=== PATIENT | male | born 1960 | race Caucasian/White ===

== ENCOUNTER 2020-04-25 18:16 | Emergency (ER) | payer OTHER ==
[2020-04-25 19:17] LABS: BILIRUBIN,URINE NEGATIVE (NEGATIVE); GLUCOSE, URINE (UA) NEGATIVE (NEGATIVE); KETONES,URINE (UA) NEGATIVE (NEGATIVE); LEUKOCYTE ESTERASE, URINE NEGATIVE (NEGATIVE); NITRITE,URINE NEGATIVE (NEGATIVE); OCCULT BLOOD,URINE MODERATE (NEGATIVE); PH,URINE 5.5 PH (5.0-7.5); PROTEIN,URINE NEGATIVE (NEGATIVE); UROBILINOGEN,URINE 1 (NORMAL) E.U./dL (NORMAL)
[2020-04-25 19:19] LABS: BASOPHILS # (AUTO) 0.1 10^3/uL (0.0-0.1); BASOPHILS % (AUTO) 0.5 %; EOSINOPHILS % (AUTO) 0.3 %; HGB - HEMOGLOBIN 14.2 g/dL (14.0-18.0); LYMPHOCYTES # (AUTO) 1.2 10^3/uL (1.5-3.5); LYMPHOCYTES % (AUTO) 11.8 %; MEAN CORPUSCULAR HEMOGLOBIN 30.1 pg (27.0-31.0); MEAN CORPUSCULAR HGB CONC 33.6 g/dL (32.0-36.0); MEAN CORPUSCULAR VOLUME 89.6 fL (80.0-94.0); MEAN PLATELET VOLUME 10.1 fL (7.4-11.4); MONOCYTES # (AUTO) 0.5 10^3/uL (0.0-1.0); MONOCYTES % (AUTO) 4.5 %; NEUTROPHILS # (AUTO) 8.2 10^3/uL (1.5-6.6); NEUTROPHILS % (AUTO) 82.6 %; PLT - PLATELET COUNT 231 10^3/uL (130-450); RED BLOOD COUNT 4.72 10^6/uL (4.70-6.10); RED CELL DISTRIBUTION WIDTH 14.5 % (12.0-15.0)
[2020-04-25 19:24] LABS: CLARITY,URINE HAZY (CLEAR)
[2020-04-25 19:29] LABS: ALBUMIN 4.6 g/dL (3.2-5.5); ALBUMIN/GLOBULIN RATIO 1.6 (1.0-2.2); BILIRUBIN,TOTAL 0.8 mg/dL (0.2-1.0); CALCIUM 9.2 mg/dL (8.5-10.3); CREATININE 1.1 mg/dL (0.6-1.2); TOTAL PROTEIN 7.4 g/dL (6.7-8.2)
--- NOTE | 2020-04-25 19:30 | ED Physician Documentation ---
PD HPI ABD PAIN - Stated complaint Stated Complaint: ABD PX - Chief complaint Chief Complaint: Abd Pain - History obtained from History obtained from: Patient - History of Present Illness Timing - onset: Today Timing - duration: Days (1) Timing - details: Abrupt onset Pain level max: 9 Pain level now: 5 Quality: Aching, Pain Location: LLQ Radiation: No: Chest, , Lower back, Left flank, Left shoulder, Right flank, Right shoulder, Upper back Improved by: Other (nothing) Worsened by: Other (nothing) Associated symptoms: Nausea, Vomiting, Diarrhea (1x liquid stool). No: Fever, Hematemesis, Constipation, Melena, Hematochezia, Dysuria, Hematuria Similar symptoms before: Has not had sx before Recently seen: Not recently seen - Additional information Additional information: No recent travel. No recent antibiotics. No abdominal surgeries in the past no history of kidney stones. No history of diverticulitis. No fever. Review of Systems Constitutional: denies: Fever, Chills Cardiac: denies: Chest pain / pressure Respiratory: denies: Cough Skin: denies: Rash Musculoskeletal: denies: Neck pain, Back pain Neurologic: denies: Headache PD PAST MEDICAL HISTORY - Past Medical History Past Medical History: No - Past Surgical History Past Surgical History: No - Present Medications Home Medications: Ambulatory Orders Medication Instructions Recorded Confirmed Hydrocodone/Acetaminophen 1 - 2 each PO Q6H PRN #14 tablet 04/25/20 [Hydrocodon-Acetaminophen 5-325] Ibuprofen [Motrin] 800 mg PO Q8H PRN #30 tablet 04/25/20 Ondansetron Odt [Zofran] 4 mg TL Q6H PRN #10 tablet 04/25/20 - Allergies Allergies/Adverse Reactions: Allergies Allergy/AdvReac Type Severity Reaction Status Date / Time No Known Drug Allergies Allergy Verified 04/25/20 18:20 - Social History Does the pt smoke?: No Smoking Status: Never smoker Does the pt drink ETOH?: No Does the pt have substance abuse?: No - Immunizations Immunizations are current?: Yes PD ED PE NORMAL - Vitals Vital signs reviewed: Yes - General General: Alert and oriented X 3, No acute distress - HEENT HEENT: Moist mucous membranes - Neck Neck: Supple, no meningeal sign - Cardiac Cardiac: RRR, Strong equal pulses - Respiratory Respiratory: No respiratory distress, Clear bilaterally - Abdomen Abdomen: Normal bowel sounds, Soft, Non tender, Non distended - Back Back: No CVA TTP, No spinal TTP - Derm Derm: Warm and dry - Extremities Extremities: No edema - Neuro Neuro: Alert and oriented X 3 - Psych Psych: Normal mood, Normal affect Results - Vitals Vitals: Vital Signs - 24 hr 04/25/20 04/25/20 04/25/20 18:21 18:23 20:14 Temperature 36.6 C Heart Rate 86 90 89 Respiratory 16 18 16 Rate Blood Pressure 182/110 H 170/111 H 182/107 H O2 Saturation 97 96 98 04/25/20 20:30 Temperature Heart Rate 85 Respiratory 14 Rate Blood Pressure 173/106 H O2 Saturation 96 Oxygen O2 Source Room air - Labs Labs: Laboratory Tests 04/25/20 04/25/20 04/25/20 19:11 19:11 19:11 WBC 10.0 RBC 4.72 Hgb 14.2 Hct 42.3 MCV 89.6 MCH 30.1 MCHC 33.6 RDW 14.5 Plt Count 231 MPV 10.1 Neut # (Auto) 8.2 H Lymph # (Auto) 1.[address] [place] # (Auto) 0.5 Eos # (Auto) 0.0 Baso # (Auto) 0.1 Absolute Nucleated RBC 0.00 Nucleated RBC % 0.0 Sodium 140 Potassium 3.4 L Chloride 105 Carbon Dioxide 26 Anion Gap 9.0 BUN 14 Creatinine 1.1 Estimated GFR (MDRD) 68 L Glucose 136 H Calcium 9.2 Total Bilirubin 0.8 AST 22 ALT 26 Alkaline Phosphatase 50 Total Protein 7.4 Albumin 4.6 Globulin 2.8 Albumin/Globulin Ratio 1.6 Lipase 30 Urine Color YELLOW Urine Clarity HAZY Urine pH 5.5 Ur Specific [place] 1.015 Urine Protein NEGATIVE Urine Glucose (UA) NEGATIVE Urine Ketones NEGATIVE Urine Occult Blood MODERATE H Urine Nitrite NEGATIVE Urine Bilirubin NEGATIVE Urine Urobilinogen 1 (NORMAL) Ur Leukocyte Esterase NEGATIVE Urine RBC 6-10 H Urine WBC 0-3 Ur Squamous Epith Cells NONE SEEN Urine Bacteria None Seen Ur Microscopic Review INDICATED Urine Culture Comments NOT INDICATED - Rads (name of study) CT abdomen pelvis Radiology: Prelim report reviewed, EMP read contemporaneously PD MEDICAL DECISION MAKING - ED course Complexity details: reviewed results, re-evaluated patient, considered differential, d/w patient ED course: 59-year-old male presents to the emergency department left-sided abdominal pain. Appears to have a 2mm UVJ stone on CT scan. No evidence of pyelonephritis. No significant lab abnormalities. Patient is pain-free. We will have him follow-up with his doctor as needed for further care. Encourage good p.o. hydration. Patient counseled regarding signs and symptoms for which I believe and urgent re-evaluation would be necessary. Patient with good understanding of and agreement to plan and is comfortable going home at this time This document was made in part using voice recognition software. While efforts are made to proofread this document, sound alike and grammatical errors may occur. Departure - Departure Disposition: 01 Home, Self Care Clinical Impression: Ureteral stone Condition: Good Instructions: ED Stone Renal W Colic Follow-Up: Your,doctor as needed [Other] Prescriptions: Hydrocodone/Acetaminophen [Hydrocodon-Acetaminophen 5-325] 1 - 2 each PO Q6H PRN #14 tablet PRN Reason: pain Ibuprofen [Motrin] 800 mg PO Q8H PRN #30 tablet PRN Reason: PAIN &/OR FEVER Ondansetron Odt [Zofran] 4 mg TL Q6H PRN #10 tablet PRN Reason: Nausea / Vomiting Comments: Drink plenty of water. Return if you worsen. You do have a 2 mm kidney stone that should pass. Do not drink alcohol or drive while on narcotic pain medicine. Note that many narcotic pain relievers also contain tylenol/acetaminophen. Please ensure that your total dose of acetaminophen from all sources does not exceed 3 grams (3000mg) per day. You may constipated on this medication, take a stool softener such as "Colace" twice a day while you are on it. Also recommend a dqhd-bjy-swpmygk laxative such as senna or MiraLAX any day that you do not have a bowel movement. If you received narcotic pain medication in the emergency department, do not drive or operate machinery for the next 24 hours.
[2020-04-25] MEDS ORDERED: IOVERSOL 320 100 ML VIAL IVP ONE ×2 (19:32→20:11)
[2020-04-25 19:34] LABS: BACTERIA,URINE None Seen /HPF (None Seen); SQUAMOUS EPITHELIAL CELL,UR NONE SEEN (<= Few)
--- NOTE | 2020-04-25 20:26 | CT Report ---
PROCEDURE: Abdomen/Pelvis W INDICATIONS: LLQ abd pain CONTRAST: IV CONTRAST: Optiray 320 ml: 100 PO CONTRAST: *NO PO CONTRAST TECHNIQUE: After the administration of oral and intravenous contrast, 5 mm thick sections acquired from the diap hragms to the symphysis. 5 mm thick coronal and sagittal reformats were acquired. For radiation dos e reduction, the following was used: automated exposure control, adjustment of mA and/or kV accordin g to patient size. COMPARISON: None. FINDINGS: Image quality: Excellent. ABDOMEN: Lung bases: Basilar dependent atelectasis. Heart size is normal. Small hiatal hernia. Solid organs: There is a 2 mm stone at the left UVJ. There is mild left hydronephrosis and perinephr ic stranding. No other renal stones. Right kidney is normal without stone or hydronephrosis. Hepatic steatosis. Liver and spleen are normal in size and enhancement. Gallbladder is normal Bilia ry system is non dilated. Pancreas enhances normally. No adrenal nodules. Kidneys demonstrate norm al size and enhancement, without hydronephrosis. Peritoneum and bowel: Bowel loops demonstrate normal wall thickness and caliber. No free fluid or a ir. Nodes and vessels: No retroperitoneal or mesenteric adenopathy by size criteria. Aorta and inferior vena cava are normal in size. Moderate atherosclerosis of abdominal aorta. Miscellaneous: No ventral hernias. PELVIS: Genitourinary: Bladder wall thickness is normal. Miscellaneous: No inguinal hernias or adenopathy. Bones: No suspicious bony lesions. No vertebral body compression fractures. IMPRESSION: 1. A 2 mm stone at the left UVJ. Mild left hydronephrosis and perinephric stranding are present. 2. Hepatic steatosis. 2. Small hiatal hernia. Reviewed by: yN Aguilar MD on 04/25/2020 8:25 PM PDT Approved by: Ny Aguilar MD on 04/25/2020 8:25 PM PDT Station ID: [id number]
[2020-04-25] MEDS ORDERED: KETOROLAC 30 MG/ML VIAL IVP STA (20:34)
[2020-04-25 21:00] VITALS: BP 156/103
== END 2020-04-25 21:00 | disposition home or self-care (01) ==
LOC: ED 18:16
DX: N13.2 Hydronephrosis with renal and ureteral calculous obstruction (principal)
CPT/HCPCS: 36415; 74177; 80053; 81001; 83690; 85025; 87086; 96374; 99284; Q9967; 81003

== ENCOUNTER 2020-05-02 05:33 | Inpatient (IN) | payer OTHER ==
[2020-05-02] MEDS ORDERED: HYDROmorphone 1 MG/ML CARPUJECT IVP STA ×5 (05:49→11:08)
[2020-05-02] MEDS ORDERED: ONDANSETRON 4 MG/2 ML VIAL IVP STA (05:49)
[2020-05-02] MEDS ORDERED: KETOROLAC 30 MG/ML VIAL IVP STA (06:19)
[2020-05-02 06:24] LABS: BASOPHILS % (AUTO) 0.3 %; EOSINOPHILS % (AUTO) 0.1 %; HGB - HEMOGLOBIN 16.3 g/dL (14.0-18.0); LYMPHOCYTES % (AUTO) 9.3 %; MEAN CORPUSCULAR HEMOGLOBIN 29.2 pg (27.0-31.0); MEAN CORPUSCULAR VOLUME 88.4 fL (80.0-94.0); MEAN PLATELET VOLUME 12.1 fL (7.4-11.4); MONOCYTES % (AUTO) 6.4 %; NEUTROPHILS % (AUTO) 83.2 %; PLT - PLATELET COUNT 238 10^3/uL (130-450); RED BLOOD COUNT 5.59 10^6/uL (4.70-6.10); RED CELL DISTRIBUTION WIDTH 14.1 % (12.0-15.0); WHITE BLOOD COUNT 21.1 x10^3/uL (4.8-10.8)
[2020-05-02] MEDS ORDERED: MAGNESIUM SULFATE 2 GRAM 2 GM/50 ML BAG IV ONE (06:24)
[2020-05-02] MEDS ORDERED: SODIUM CHLORIDE 0.9% 1,000 ML IV STA ×3 (06:24→08:29)
--- NOTE | 2020-05-02 06:24 | ED Physician Documentation ---
PD HPI ABD PAIN - Stated complaint Stated Complaint: PAIN/VOMITING - Chief complaint Chief Complaint: Abd Pain - History obtained from History obtained from: Patient, Family - History of Present Illness Timing - onset: Enter time (0200), Today Timing - duration: Hours Timing - details: Abrupt onset, Still present Quality: Sharp, Pain Location: RUQ Radiation: Chest, Right shoulder Improved by: Laying still Worsened by: Moving, Breathing, Position, Palpation Associated symptoms: Nausea, Vomiting Similar symptoms before: Has not had sx before Recently seen: Emergency Dept - Additional information Additional information: Previously well 59-year-old male who is had a recent kidney stone in the left s willian is coming to the emergency department this morning with chief complaint of pain in his entire right side pain in his right shoulder pain with breathing and pain in his abdomen.He arrives to the emergency department diaphoretic and in distress with pain.He states his pain was far worse than what he had when he had his kidney stone last week. Review of Systems Constitutional: denies: Fever Eyes: denies: Decreased vision Ears: denies: Ear pain Nose: denies: Rhinorrhea / runny nose, Congestion Throat: denies: Sore throat Cardiac: reports: Chest pain / pressure. denies: Palpitations Respiratory: denies: Dyspnea, Cough GI: reports: Abdominal Pain, Nausea, Vomiting, Constipation : denies: Dysuria, Frequency Skin: denies: Rash Musculoskeletal: reports: Joint pain (right shoulder). denies: Neck pain, Back pain, Extremity pain Neurologic: reports: Numbness (to the arms). denies: Generalized weakness, Focal weakness PD PAST MEDICAL HISTORY - Past Surgical History Past Surgical History: No - Present Medications Home Medications: Ambulatory Orders Medication Instructions Recorded Confirmed Hydrocodone/Acetaminophen 1 - 2 each PO Q6H PRN #14 tablet 04/25/20 [Hydrocodon-Acetaminophen 5-325] Ibuprofen [Motrin] 800 mg PO Q8H PRN #30 tablet 04/25/20 Ondansetron Odt [Zofran] 4 mg TL Q6H PRN #10 tablet 04/25/20 - Allergies Allergies/Adverse Reactions: Allergies Allergy/AdvReac Type Severity Reaction Status Date / Time No Known Drug Allergies Allergy Verified 05/02/20 05:47 - Social History Does the pt smoke?: No Smoking Status: Never smoker Does the pt drink ETOH?: No Does the pt have substance abuse?: No - Immunizations Immunizations are current?: Yes - POLST Patient has POLST: No PD ED PE NORMAL - Vitals Vital signs reviewed: Yes (hypertensive ) - General General: Alert and oriented X 3, Well developed/nourished, Other (59-year-old male hyperventilating and grunting in pain diaphoretic and writhing on the gurney.) - HEENT HEENT: Atraumatic, PERRL, EOMI - Neck Neck: Supple, no meningeal sign - Cardiac Cardiac: RRR, No murmur - Respiratory Respiratory: No respiratory distress, Clear bilaterally, Other (No chest wall tenderness) - Abdomen Abdomen: Soft, Other (The abdomen is obese and there is tenderness specifically to the right upper quadrant with a positive Bradshaw sign. There is epigastric tenderness as well.) - Back Back: No CVA TTP, No spinal TTP - Derm Derm: Normal color, Warm and dry, No rash - Extremities Extremities: No deformity, No edema - Neuro Neuro: Alert and oriented X 3, receiving team member 2-12 intact, No motor deficit, No sensory deficit, Normal speech Eye Opening: Spontaneous Motor: Obeys Commands Verbal: Oriented GCS Score: 15 - Psych Psych: Normal mood, Normal affect Results - Vitals Vitals: Vital Signs - 24 hr 05/02/20 05/02/20 05/02/20 05:35 06:01 06:08 Temperature 36.9 C Heart Rate 83 95 Respiratory 24 24 20 Rate Blood Pressure 132/93 H 122/86 H 110/88 H O2 Saturation 98 96 96 05/02/20 05/02/20 05/02/20 06:36 07:00 07:46 Temperature Heart Rate 64 77 94 Respiratory 18 23 22 Rate Blood Pressure 150/96 H 146/106 H 201/141 H O2 Saturation 98 96 96 05/02/20 05/02/20 05/02/20 08:19 08:20 08:53 Temperature Heart Rate 98 98 Respiratory 19 17 Rate Blood Pressure 164/99 H 158/102 H O2 Saturation 92 86 L 93 05/02/20 05/02/20 05/02/20 09:00 09:30 10:00 Temperature Heart Rate 101 H 100 95 Respiratory 22 18 17 Rate Blood Pressure 150/103 H 162/102 H 144/94 H O2 Saturation 92 93 93 05/02/20 05/02/20 05/02/20 10:30 11:00 11:30 Temperature Heart Rate 107 H 96 100 Respiratory 19 25 H 19 Rate Blood Pressure 147/80 H 154/107 H 160/99 H O2 Saturation 93 92 92 05/02/20 05/02/20 05/02/20 12:00 12:27 12:30 Temperature 36.9 C Heart Rate 104 H 100 110 H Respiratory 18 18 18 Rate Blood Pressure 150/90 H 162/102 H 124/97 H O2 Saturation 94 93 92 05/02/20 05/02/20 05/02/20 12:36 13:08 13:30 Temperature 37.2 C Heart Rate 106 H 110 H Respiratory 20 18 Rate Blood Pressure 136/90 H 124/81 H O2 Saturation 96 92 05/02/20 05/02/20 18:33 18:35 Temperature 36.9 C 37 C Heart Rate 103 H 99 Respiratory 18 18 Rate Blood Pressure 144/96 H 135/82 H O2 Saturation 99 99 Oxygen O2 Source Nasal cannula - EKG (time done) 0612 Rate: Rate (enter#) (64) Rhythm: NSR, LAE Intervals: Prolonged QT Ischemia: Non specific changes (flat T waves lateral mild and I and avL) Other comments: Other comments (RSR' in V1 consistent with RVH) Compare to prior EKG: Old EKG unavailable Computer interpretation: Agree with computer - Labs Labs: Laboratory Tests 05/02/20 05/02/20 05/02/20 05:45 05:45 10:47 WBC 21.1 H RBC 5.59 Hgb 16.3 Hct 49.4 MCV 88.4 MCH 29.2 MCHC 33.0 RDW 14.1 Plt Count 238 MPV 12.1 H Neut # (Auto) Not Reportable Lymph # (Auto) Not Reportable [place] # (Auto) Not Reportable Eos # (Auto) Not Reportable Baso # (Auto) Not Reportable Absolute Nucleated RBC Not Reportable Total Counted 100 Band Neuts % (Manual) 0 Abnorm Lymph % (Manual) 0 Nucleated RBC % Not Reportable Neutrophils # (Manual) 17.3 H Lymphocytes # (Manual) 2.3 Monocytes # (Manual) 1.5 H Eosinophils # (Manual) 0.0 Basophils # (Manual) 0.0 Differential Comment MANUAL DIFFERENTIAL WBC Morphology NORMAL APPEARANCE Platelet Estimate NORMAL (130-450,000) Platelet Morphology NORMAL APPEARANCE RBC Morph Micro Appear NORMAL APPEARANCE Sodium 140 Potassium 2.9 L Chloride 94 L Carbon Dioxide 30 Anion Gap 16.0 H BUN 18 Creatinine 1.8 H Estimated GFR (MDRD) 39 L Glucose 236 H Calcium 10.6 H Total Bilirubin 0.9 AST 22 ALT 23 Alkaline Phosphatase 55 Total Protein 8.8 H Albumin 4.8 Globulin 4.0 Albumin/Globulin Ratio 1.2 Lipase 27 Urine Color DARK YELLOW Urine Clarity CLEAR Urine pH 5.5 Ur Specific [place] 1.015 Urine Protein 100 H Urine Glucose (UA) NEGATIVE Urine Ketones NEGATIVE Urine Occult Blood MODERATE H Urine Nitrite NEGATIVE Urine Bilirubin NEGATIVE Urine Urobilinogen 1 (NORMAL) Ur Leukocyte Esterase NEGATIVE Urine RBC 0-5 Urine WBC 0-3 Ur Squamous Epith Cells MOD Squamous H Urine Crystals 3-5 Calcium Oxalate Urine Bacteria Many H Urine Casts 6-10 Granular Casts Ur Microscopic Review INDICATED Urine Culture Comments NOT INDICATED - Rads (name of study) chest Radiology: Prelim report reviewed (Impression: Streaky left medial lung base opacity. This could be partial atelectasis or early consolidation.), EMP read indepedently, See rad report Procedures - Bedside sono Bedside sono by EMP: With use of bedside ultrasound the right kidney is imaged there is no evidence of hydronephrosis and the kidney is sonographically nontender. The right upper quadrant is imaged with the ultrasound I am not able to image the gallbladder there is excessive gas in the throughout the exam the area is sonographically tender. PD MEDICAL DECISION MAKING - ED course Complexity details: reviewed old records, reviewed results, re-evaluated patient, considered differential, d/w patient ED course: 59-year-old male presents to the emergency department with severe right upper quadrant abdominal pain pain in his right shoulder diaphoresis nausea vomiting and numbness to his hands. He is hyperventilating when he arrives to the emergency department. He is in distress and he is administered Dilaudid and Zofran with only mild improvement in his pain. His pain behavior is much improved. He is administered Toradol. I was unable to image the gallbladder secondary to gas. By history the gallbladder would be the most likely culprit for entire right-sided pain including pain in the shoulder. I have reviewed the patient's CT scan from his prior visit and I did not see anything in the scan to indicate an impending abdominal catastrophe. He does not have abdominal aortic aneurysm. I asked the scrub technician to look at the gallbladder and she was unable to visualize the gallbladder except in one angle and this looked contracted. Not likely the source of the patient's pain. The pain is severe the WBC is markedly elevated and I am concerned about perforation or other catastrophe. At shift change a CT is ordered the case is reviewed with Dr. Arzate and care of the patient is turned over to Dr. Arzate. In addition his QTc was prolonged and he was administered IV magnesium. He is administered IV potassium as well. Departure - Departure Disposition: [facility] DC/Xfer Clinical Impression: Acute upper abdominal pain, Perforated duodenal ulcer, Pneumoperitoneum Condition: Stable Discharge Date/Time: 05/02/20 13:40
[2020-05-02 06:29] LABS: ABNORMAL LYMPHS % (MANUAL) 0 %; BAND NEUTROPHILS % (MANUAL) 0 %
[2020-05-02 06:36] LABS: ALBUMIN 4.8 g/dL (3.2-5.5); ALBUMIN/GLOBULIN RATIO 1.2 (1.0-2.2); BILIRUBIN,TOTAL 0.9 mg/dL (0.2-1.0); CALCIUM 10.6 mg/dL (8.5-10.3); CREATININE 1.8 mg/dL (0.6-1.2); TOTAL PROTEIN 8.8 g/dL (6.7-8.2)
[2020-05-02 06:58] LABS: DIFFERENTIAL COMMENT MANUAL DIFFERENTIAL; LYMPHOCYTES # (MANUAL) 2.3 10^3/uL (1.5-3.5); LYMPHOCYTES % (MANUAL) 11 %; MONOCYTES # (MANUAL) 1.5 10^3/uL (0.0-1.0); PLATELET ESTIMATE, MANUAL NORMAL (130-450,000) (NORMAL); PLATELET MORPHOLOGY NORMAL APPEARANCE (NORMAL); RBC MORPHOLOGY (MULTIPLE) NORMAL APPEARANCE (NORMAL)
[2020-05-02] MEDS ORDERED: IOVERSOL 320 100 ML VIAL IVP ONE ×2 (07:45→09:28)
[2020-05-02] MEDS: POTASSIUM CHLOR 10 MEQ/100 ML 10 MEQ/100 ML BAG IV SCH ×3 (08:19→12:51)
[2020-05-02] MEDS ORDERED: POTASSIUM CHLOR 10 MEQ/100 ML 10 MEQ/100 ML BAG IV ONE (08:29)
[2020-05-02] MEDS ORDERED: AMPICILLIN/SULBACTAM 3 GM in SODIUM CHLORIDE 0.9% MINIBAG 100 ML IV STA (08:29)
[2020-05-02] MEDS ORDERED: FAMOTIDINE 20 MG/2 ML SYRINGE IVP STA (08:29)
--- NOTE | 2020-05-02 08:29 | Ultrasound Report ---
PROCEDURE: Abdomen Limited INDICATIONS: RUQ pain TECHNIQUE: Real-time focused scanning was performed of the abdomen, with image documentation. COMPARISON: Correlation is made with the subsequently performed CT examination as well as the chest radiograph performed on 05/02/2020. Correlation is made with abdomen and pelvis CT 04/25/2020. FINDINGS: The liver demonstrates normal size. The liver demonstrates increased echogenicity, which l imits ultrasound sensitivity for detection of masses. Mild ascites is seen adjacent to the liver. Evaluation of the gallbladder is limited, and it is poorly seen. The gallbladder is contracted and de monstrates an irregular wall. The wall measures 6 mm in thickness. No specific pericholecystic fluid is seen. Sonographic Bradshaw sign is negative. The common bile duct is not seen. The common hepatic duct is nondilated at 3 mm. The pancreas is not seen, secondary to overlying bowel gas. The right kidney is unremarkable. Overall scan quality is limited secondary to the patient's inability to cooperate with examination an d moved into standard positioning. The study is further limited by bowel gas and body habitus. IMPRESSION: Limited study demonstrating a contracted gallbladder with irregular, thickened wall. No additional sp ecific signs of cholecystitis are seen. Mild ascites. Increased liver echogenicity is seen. This is nonspecific, yet it is most commonly attributed to fatt y infiltration. Note: Concordant biliary findings given by the inspector canvas products upon the completion of the examination to Dr. Shay at 7:20 AM on 05/02/2020. Reviewed by: Matthew Torrez MD on 05/02/2020 7:28 AM [facility] Approved by: Matthew Torrez MD on 05/02/2020 7:28 AM [facility] Station ID: [id number]
--- NOTE | 2020-05-02 08:35 | CT Report ---
PROCEDURE: Abdomen/Pelvis W INDICATIONS: Right sided abdominal pain severe. CONTRAST: IV CONTRAST: Optiray 320 ml: 100 PO CONTRAST: *NO PO CONTRAST TECHNIQUE: After the administration of oral and intravenous contrast, 5 mm thick sections acquired from the diap hragms to the symphysis. 5 mm thick coronal and sagittal reformats were acquired. For radiation dos e reduction, the following was used: automated exposure control, adjustment of mA and/or kV accordin g to patient size. COMPARISON: Correlation is made with abdominal ultrasound and chest 05/02/2020. Comparison is made to prior head and pelvis CT 04/25/2020. FINDINGS: Image quality: Excellent. ABDOMEN: Lung bases: There is mild dependent atelectasis. A small hiatal hernia is incidentally noted. Heart s ize is normal. Solid organs: Liver and spleen are normal in size and enhancement. Mild fatty liver infiltration is seen. Gallbladder is contracted at the time of this study. Biliary system is non dilated. Pancreas enhances normally. No adrenal nodules. Kidneys demonstrate normal size and enhancement, without hyd ronephrosis. Peritoneum and bowel: The duodenum appears thickened, irregular, and hyperenhancing. There is free a ir seen adjacent to the duodenum, as on series 3 image 32. Moderate free air is seen elsewhere, prima rily involving the upper abdomen. There is moderate ascites seen adjacent to the liver as well as lay ering dependently within the pelvis. Generalized moderate thickening is seen of the small bowel. No dilated loops of bowel are seen. No lo culated abscess is seen. Nodes and vessels: No retroperitoneal or mesenteric adenopathy by size criteria. Aorta and inferior vena cava are normal in size. Atherosclerotic calcification is seen. Miscellaneous: No ventral hernias. PELVIS: Genitourinary: Bladder wall thickness is normal. Miscellaneous: No inguinal hernias or adenopathy. Bones: No suspicious bony lesions. No vertebral body compression fractures. Mild levoconvex scolio tic curvature is seen. Focal L5-S1 degenerative change is seen. Milder degenerative changes are seen elsewhere. IMPRESSION: Free air is seen. These source of the free air is attributed to a perforated duodenal ul cer. Surgical consultation is recommended. Moderate ascites is also seen. No loculated abscess. The previously seen left ureteral stone has resolved. Incidental note is made of: Small hiatal hernia Mild fatty liver infiltration Levoconvex scoliotic curvature Focal L5-S1 degenerative change Note: Case discussed by telephone with Dr. Shay at 7:27 AM [place] time on 05/02/2020. Reviewed by: Matthew Torrez MD on 05/02/2020 7:33 AM [facility] Approved by: Matthew Torrez MD on 05/02/2020 7:33 AM [facility] Station ID: [id number]
--- NOTE | 2020-05-02 08:36 | ED Physician Documentation ---
ED Addendum - Addendum Addendum: 05/02/20 08:[address] Shay at change of shift. The patient was feeling more comfortable though still had some upper abdominal pain. Main complaint was right shoulder pain. He was just back from CT scan. His CT scan is significantly positive for large amount of free air and some free fluid. There is inflammation around the duodenum so likely a perforated duodenal ulcer. This would fit his scenario of some upper abdominal pain starting 2 days ago worse with eating and associated with nausea. He started with a current bloating abdominal pain and vomiting last evening. Contact was made with Dr. Snow who is on for surgery who will come evaluate the patient presumably for surgical repair. The patient was informed. He has been n.p.o. while here and is continued that way. We will start some antibiotics as well as famotidine and continue potassium replacement. Disposition the patient will be admitted for more definitive care Diagnoses acute upper abdominal pain 2. Acute perforated duodenal ulcer 3. Recent kidney stone
--- NOTE | 2020-05-02 08:37 | XRAY Report ---
PROCEDURE: Chest 1 View X-Ray INDICATIONS: chest pain TECHNIQUE: One view of the chest was acquired. COMPARISON: Correlation is made with CT examinations 05/02/2020 and 04/25/2020. FINDINGS: Surgical changes and devices: Right shoulder postoperative change is seen. Lungs and pleura: An incomplete inspiratory result is noted, with low lung volumes and crowding of the vascular markings. No focal infiltrates are seen. No large pneumothorax or large pleural effusion can be seen. Mediastinum: Mediastinal contours appear normal. Heart size is normal. Bones and chest wall: No suspicious bony lesions. Overlying soft tissues appear unremarkable. IMPRESSION: Limited portable chest examination, without an acute abnormality identified. Reviewed by: Matthew Torrez MD on 05/02/2020 7:36 AM [facility] Approved by: Matthew Torrez MD on 05/02/2020 7:36 AM [facility] Station ID: [id number]
--- NOTE | 2020-05-02 10:04 | SURGERY HX AND PHYSICAL(T) ---
Surgical History & Physical - Chief Complaint/HPI Chief Complaint: Pneumoperitoneum and abdominal pain History of Present Illness: 59-year-old male with no significant past medical history or surgical history who presents with a several day history of abdominal pain. Associated nausea and vomiting. Has been seen recently and started on nonsteroidal analgesia. Denies any change in bowel movements. No bright red blood per rectum. No hematemesis however violent heaving. Patient presented to ER for evaluation it was noted for pneumoperitoneum on CT scan with concerns for perforated pyloric ulcer. General surgery consultation obtained. - PMH/PSH/Social Hx Does the pt have a hx of MRSA?: No Neurological History: None Eyes, Ears, Nose, Throat: None Cardiovascular: None Respiratory: None Skin: None Endocrine/Autoimmune: None Gastrointestinal: None Urinary: None Musculoskeletal: None Blood Disorders: None Psychiatric: None Smoking Status: Never smoker Does the pt drink ETOH?: No Does the pt have substance abuse?: No - Family Hx Family Hx: Other (Denies family history of colorectal cancer, inflammatory bowel disease, Crohn's disease, ulcerative colitis. No family history of heart attack stroke.) - Home Meds and Allergies Allergies/Adverse Reactions: Allergies Allergy/AdvReac Type Severity Reaction Status Date / Time No Known Drug Allergies Allergy Verified 05/02/20 05:47 - Review of Systems Constitutional: Fatigue, Weakness Gastrointestinal: Nausea, Vomiting, Abdominal pain, Constipation Neurological: No: Dizziness, Headache - Vital Signs Heart Rate: 100 Blood Pressure: 162/102 Temperature: 36.9 C Respiratory Rate: 18 O2 Saturation: 93 Weight (kg): 117.934 kg Height: 1.8 m - Physical Exam General Appearance: positive: Mild distress Eyes Bilatera: positive: Normal inspection, PERRL, EOMI ENT: positive: ENT inspection nml Neck: positive: Nml inspection Respiratory: positive: Chest non-tender, No respiratory distress Cardiovascular: positive: Regular rate & rhythm Abdomen: positive: Tenderness, Guarding, Rebound, Other (Abdomen distended, with associated rebound and guarding, consistent with peritonitis from perforated viscus.) Rectal: positive: Other (Deferred) Back: positive: Nml inspection Extremities: positive: Non-tender, Full ROM Neurologic/Psychiatric: positive: Oriented x3, CN's nml (2-12) - Patient Review Patient Review: Problems were reviewed with the patient during this visit. Medications were reviewed with the patient during this visit. Allergies were reviewed this patient during this visit. Pertinent Tests Reviewed: All pertitent test for this patient were reviewed. - Assessment & Plan Assessment and Plan: 59-year-old male presenting with acute perforated viscus without comorbid states other than obesity. Leukocytosis, CT consistent with pneumoperitoneum and likely perforated pyloric ulcer. Plan going forward is as follows: 1. Bowel rest, IV fluid resuscitation, IV antibiotics. 2. Preoperative chest x-ray, preoperative EKG, labs evaluated. 3. Planned exploratory laparotomy, repair of viscus, likely gastrostomy with jejunal extension, other indicated procedures. Patient counseled of the risk associated with operative intervention including but not limited to conversion to open procedure, injury to local structures, and anesthesia risks of heart attack, stroke, . 4. Postoperative care under observation status with continued IV antibiotics. 5. Drain placement as well. 6. Operative risks - patient was advised of risks as a relates to colectomy including but not limited to, anastomotic leak, injury to local structures including the ureter and nerves, potential for proximal diversion including loop ileostomy, possible conversion to open intervention, need for additional surgeries, as well as the development of postoperative surgical site hernias and infection. Moreover, there were the anesthesia and operative risks of heart attack, stroke, . These conversations also included discussion of possible sexual dysfunction as it relates to retrograde ejaculation amongst others in the setting of anterior resection. We discussed these at length with both the patient and spouse over multiple days. 7. PPI gtt/carafate/biopsies.
--- NOTE | 2020-05-02 10:14 | ANESTHESIA ---
Pre-Anesthesia VS, & Labs - Diagnosis perforATED bowel - Procedure laparoscopy/laparotomy peroforated bowel repair Vital Signs: Temp Pulse Resp BP Pulse Ox 36.9 C 100 18 162/102 H 93 05/02/20 10:04 05/02/20 10:04 05/02/20 10:04 05/02/20 10:04 05/02/20 10:04 Height 5 ft 11 in Weight (kg) 117.934 kg Body Mass Index 36.2 - NPO >8 hours - Lab Results Current Lab Results: Laboratory Tests 05/02/20 05:45: Sodium 140, Potassium 2.9 L, Chloride 94 L, Carbon Dioxide 30, Anion Gap 16.0 H, BUN 18, Creatinine 1.8 H, Estimated GFR (MDRD) 39 L, Glucose 236 H, Calcium 10.6 H, Total Bilirubin 0.9, AST 22, ALT 23, Alkaline Phosphatase 55, Total Protein 8.8 H, Albumin 4.8, Globulin 4.0, Albumin/Globulin Ratio 1.2, Lipase 27 05/02/20 05:45: WBC 21.1 H, RBC 5.59, Hgb 16.3, Hct 49.4, MCV 88.4, MCH 29.2, MCHC 33.0, RDW 14.1, Plt Count 238, MPV 12.1 H, Neut # (Auto) Not Reportable, Lymph # (Auto) Not Reportable, [place] # (Auto) Not Reportable, Eos # (Auto) Not Reportable, Baso # (Auto) Not Reportable, Absolute Nucleated RBC Not Reportable, Total Counted 100, Band Neuts % (Manual) 0, Abnorm Lymph % (Manual) 0, Nucleated RBC % Not Reportable, Neutrophils # (Manual) 17.3 H, Lymphocytes # (Manual) 2.3, Monocytes # (Manual) 1.5 H, Eosinophils # (Manual) 0.0, Basophils # (Manual) 0.0, Differential Comment MANUAL DIFFERENTIAL, WBC Morphology NORMAL APPEARANCE, Platelet Estimate NORMAL (130-450,000), Platelet Morphology NORMAL APPEARANCE, RBC Morph Micro Appear NORMAL APPEARANCE Fish Bones: 05/02/20 05:45 05/02/20 05:45 Home Medications and Allergies Active Medications Potassium Chloride (Potassium Chloride) 10 meq in 100 mls @ 100 mls/hr IV Q1H JOSE C Last Infusion: 07/18/20 09:19 Dose: Infused Documented by: Sodium Chloride (Normal Saline 0.9%) 1,000 mls @ 500 mls/hr IV .Q2H STA Stop: 05/02/20 10:28 Last Admin: 05/02/20 08:54 Dose: 500 mls/hr Documented by: Allergies/Adverse Reactions: Allergies Allergy/AdvReac Type Severity Reaction Status Date / Time No Known Drug Allergies Allergy Verified 05/02/20 05:47 Anes History & Medical History - Anesthetic History Anesthesia Complications: reports: No previous complications Family history of Anesthesia Complications: Denies Family history of Malignant Hyperthermia: Denies - Medical History Cardiovascular: reports: Hypertension Pulmonary: reports: None, Other (quit 12 years ago) Gastrointestinal: reports: GERD Urinary: reports: None Neuro: reports: None Musculoskeletal: reports: None Endocrine/Autoimmune: reports: None Blood Disorders: reports: None Skin: reports: None Smoking Status: Former smoker Psychosocial: reports: No issues indicated - Surgical History Orthopedic: Rotator cuff repair (right side 15 years ago) Exam General: Alert, Oriented x3, Cooperative, No acute distress Dental: Poor dentition, Other (missing teeth) Mouth Openin Fingerbreadth Neck Mobility: Normal Mallampati classification: II Thyromental Distance: 4-6 cm Respiratory: Lungs clear, Normal breath sounds, No respiratory distress, No accessory muscle use Cardiovascular: Regular rate, Normal S1, Normal S2, No murmurs Abdomen: Normal bowel sounds, Soft, No tenderness, No hepatospenomegaly, No masses Extremities: No clubbing, No cyanosis, No edema, Normal pulses, No tenderne ss/swelling Neurological: Normal gait, Normal speech, Strength at 5/5 X4 ext, Normal tone, Sensation intact, Cranial nerves 3-12 NL, Reflexes 2+ Mental/Cognitive Status: Alert/Oriented X3, Normal for patient Cognitive Status: Within normal limits Plan Anesthesia Type: General, Transverse Abdominis Plane (TAP) Block Regional Block: Per Surgeon's request for Post Op pain control Consent for Procedure(s) Verified and Reviewed: Yes Code Status: Attempt Resuscitation ASA classification: 3-Severe systemic disease Is this case an emergency?: No
[2020-05-02 11:08] LABS: BILIRUBIN,URINE NEGATIVE (NEGATIVE); GLUCOSE, URINE (UA) NEGATIVE (NEGATIVE); KETONES,URINE (UA) NEGATIVE (NEGATIVE); LEUKOCYTE ESTERASE, URINE NEGATIVE (NEGATIVE); NITRITE,URINE NEGATIVE (NEGATIVE); OCCULT BLOOD,URINE MODERATE (NEGATIVE); PH,URINE 5.5 PH (5.0-7.5); PROTEIN,URINE 100 mg/dL (NEGATIVE); UROBILINOGEN,URINE 1 (NORMAL) E.U./dL (NORMAL)
[2020-05-02 11:11] LABS: CLARITY,URINE CLEAR (CLEAR)
[2020-05-02 11:24] LABS: BACTERIA,URINE Many /HPF (None Seen); CRYSTALS,URINE 3-5 Calcium Oxalate /LPF; RBC,URINE 0-5 /HPF (0-5); SQUAMOUS EPITHELIAL CELL,UR MOD Squamous (<= Few)
[2020-05-02] MEDS ORDERED: ROPIVACAINE 0.5% PF 20 ML AMPULE ONE (12:41)
[2020-05-02] MEDS ORDERED: LACTATED RINGERS 1,000 ML IV STA (12:42)
[2020-05-02] MEDS ORDERED: LIDOCAINE 1%-EPI 1:100000 20 ML MDV ONE (13:15)
[2020-05-02] MEDS ORDERED: BUPIVACAINE 0.5% PF 30 ML VIAL ONE (13:16)
[2020-05-02] MEDS ORDERED: DEXAMETHASONE 4 MG/ML VIAL IVP ONE (13:45)
[2020-05-02] MEDS ORDERED: ONDANSETRON 4 MG/2 ML VIAL IVP ONE (13:45)
[2020-05-02] MEDS ORDERED: SUCCINYLCHOLINE 200 MG/10 ML VIAL IVP ONE (13:45)
[2020-05-02] MEDS ORDERED: ACETAMINOPHEN 1,000 MG/100 ML 100 ML IV ONE (13:45)
[2020-05-02] MEDS ORDERED: GLYCOPYRROLATE 1 MG/5 ML VIAL IVP ONE (13:45)
[2020-05-02] MEDS ORDERED: fentaNYL 100 MCG/2 ML VIAL IVP ONE (13:45)
[2020-05-02] MEDS ORDERED: PHENYLEPHRINE 10 MG/ML VIAL IV ONE (13:45)
[2020-05-02] MEDS ORDERED: PROPOFOL 200 MG/20 ML VIAL IVP ONE (13:45)
[2020-05-02] MEDS ORDERED: ROCURONIUM 50 MG/5 ML VIAL IVP ONE (13:45)
[2020-05-02] MEDS ORDERED: PIPERACILLIN/TAZOBACTAM 3.375 GM in SODIUM CHLORIDE 0.9% MINIBAG 100 ML IV ONE (15:00)
[2020-05-02] MEDS ORDERED: FLUCONAZOLE 200 MG/100 ML 100 ML IV ONE (15:00)
[2020-05-02] MEDS ORDERED: SUGAMMADEX 500 MG/5 ML VIAL IVP ONE (16:57)
--- NOTE | 2020-05-02 17:45 | XRAY Report ---
PROCEDURE: Abdomen 1 View X-Ray INDICATIONS: EMERGENT CASE R/O RETAINED FOREIGN BODY TECHNIQUE: 1 view of the abdomen were acquired. COMPARISON: Correlation is made with abdomen pelvis CT 05/02/2020 and chest radiograph 05/02/2020. FINDINGS: Surgical changes and devices: There is a weighted feeding tube seen, with the tip coiled overlying th e stomach, with the tip overlying the fundus of the stomach. This tube is incompletely seen. Two right-sided peritoneal drains are seen, one superiorly and one inferiorly. Bowel: No dilated loops of bowel are seen. Soft tissues: No masses; visualized solid organ contours appear normal in size. No suspicious abdom inal calcifications. Bones: No suspicious bony abnormalities. Age-appropriate degenerative changes are seen. IMPRESSION: The tip of the weighted feeding tube is seen coiled overlying the fundus of the stomach. Please consider advancement, as clinically appropriate. Two right-sided peritoneal surgical drains are seen. To the limits of this study, no radiopaque retained foreign bodies are seen. Reviewed by: Matthew Torrez MD on 05/02/2020 4:44 PM B[facility] Approved by: Matthew Torrez MD on 05/02/2020 4:44 PM BULMAR[facility] Station ID: [id number]
[2020-05-02] MEDS ORDERED: LACTATED RINGERS 1,000 ML IV ONE (18:33)
[2020-05-02] MEDS ORDERED: IPRATROPIUM 0.2 MG/ML NEB INH PRN (18:36)
[2020-05-02] MEDS ORDERED: ALBUTEROL NEB 2.5 MG/3 ML INH PRN (18:36)
--- NOTE | 2020-05-02 18:36 | OPERATIVE REPORT ---
Operative Report - General Admit Date: 05/02/20 Planned Procedure: 1. Exploratory laparotomy 2. Abdominal washout, extensive 3. Repair of perforated viscous 4. Other indicated procedures Pre-Op Diagnosis: Sepsis, Septic Shock, Peritonitis, Pneumoperitoneum Procedure Performed: 1. Exploratory laparotomy 2. Abdominal washout, extensive 3. Repair of pyloric ulcer 4. Ulcer biopsy, open 5. Heineke-Mikulicz pyloroplasty 6. Gastrostomy with jejunostomy extension, open 7. Open umbilical hernia repair 8. Wound VAC placement 9. Wide drainaged 10. Lysis of adhesions Post Op Diagnosis: Same, Perforated pyloric ulcer, Purulent/Bilious Peritonitis - Procedure Note Primary Surgeon: Gwendolyn Secondary Surgeon: Mildred Anesthesia Provider: Anesthesia Technique: General ET tube, Regional block Pathology: 1. Gastric biopsy 2. Umbilical hernia sac Estimated Blood Loss (mL): 150 Drain/Tube Type: Omari drain, Other (Drain Type: Omari #1 Epigastrium (exit RUQ); Omari #2 Pelvis (exit RLQ) Drain Additional: Gastrostomy with Feeding Jejunostomy in the side port) Indications: Omari Drain Findings: Patient with purulent and bilious peritonitis. Noted for pre-pyloric ulcer for which Heineke-Mikulicz's pyloroplasty was performed including layered repair with Vicryl primary interrupteds and silk Lembert's. Please note gastropexy and gastrostomy was performed. Extensive washout. Drain #1 placed exiting the right upper quadrant at the pylorus. Drain #2 placed exiting the right lower quadrant within the pelvis. Patient was unable to be passed for nasogastric tube and should remain strict n.p.o. Complications: None
[2020-05-02] MEDS ORDERED: ONDANSETRON 4 MG/2 ML VIAL IVP PRN (18:45)
--- NOTE | 2020-05-02 18:50 | PROCEDURE REPORT ---
Hospitalist Procedure Note - Procedure Note Procedure Note: Intraop TL 7 malawian CVL placed per surgeons request. Patient being operated on for perforated viscus. Requiring vasopresors intraoperatively. CVL placed after the completion of surgery and before extubation. All sterile precautions observed. US used. Right IJ insertion under US guidance. Catheter secured with sutures and tegaderm dressing on top. No ectopy noticed on the quality assurance monitor chassis. Pt tolerated the procedure well.
--- NOTE | 2020-05-02 18:58 | POST OP PROGRESS NOTE ---
Subjective - General Procedure Date: 05/02/20 Post Op Days: 0 Procedure Performed: Ex Lap, Pyloroplasty, Drain X2, Gastrostomy, Feeding Jejunostomy, Wound Vac - Review of Systems Drain Type: Omari #1 Epigastrium (exit RUQ); Omari #2 Pelvis (exit RLQ) Drain Output Description: Gastrostomy with Feeding Jejunostomy in the side port Surgery Impression Plan - FEN FEN: GI/nutrition: 1. STRICT NPO, gastrostomy tube to gravity, trickle feeds to the jejunostomy extension. 2. PPI/Protonix drip; avoid NSAIDs. 3. Plan TPN for prolonged NPO. 4. Bowel regimen to jejunostomy tube...all meds through feeding jejunostomy extension. 5. Daily electrolytes and continue with nurse replacements per protocol. 6. Defer po intake until definitive evaluation by upper GI study with follow through. - ID ID: Purulent and Bilious Peritonitis: 1. Broad Spectrum Coverage to include Vancomycin, Zosyn and anti-fungal coverage with Diflucan. 2. Daily CBC. Continue drains. 3. Leave skin and subcutaneous tissue open in the setting of contamination. Wound Vac change in three days. 4. Septic shock with aggressive resuscitation and pressers as necessary. - Problem List (1) Acute upper abdominal pain Impression/Plan: S/P following procedure: 1. Exploratory Laparotomy 2. Extensive abdominal washout of purulent and bilious peritonitis 3. Repair of perforate pyloric ulcer 4. Heineke-Mikulicz pyloroplasty 5. Wide local drainage 6. Gastrostomy tube placement with feeding jejunostomy extension 7. Wound Vac placement Right radial arterial line placed by anesthesia IJ TLC placement by anesthesia as well (2) Perforated duodenal ulcer Impression/Plan: S/P above listed procedures, continue protonix gtt as well. Await pathology. Avoid NSAIDs.
[2020-05-02] MEDS ORDERED: PIPERACILLIN/TAZOBACTAM 3.375 GM in SODIUM CHLORIDE 0.9% MINIBAG 100 ML IV SCH (19:00)
[2020-05-02] MEDS ORDERED: ACETAMINOPHEN 1,000 MG/100 ML 100 ML IV SCH (19:00)
[2020-05-02] MEDS ORDERED: D5NS W/20 MEQ KCL 1,000 ML IV SCH (19:00)
[2020-05-02] MEDS ORDERED: HYDROmorphone 0.5 MG/0.5 ML SYRINGE ONE (19:15)
--- NOTE | 2020-05-02 19:28 | CONSULTATION NOTE ---
Referring Provider Name of Referring Provider:: Dr. Omar Snow Consult Date: 05/02/20 Chief Complaint - Chief Complaint Chief Complaint: Abdominal pain History of Present Illness - Admitted From Admitted From:: Home - History Obtained From Records Reviewed: Yes History obtained from: Patient, General Surgery, EMR - History of Present Illness HPI Comment/Other: This is a pleasant 59-year-old male with no significant past medical history who presents today complaining of worsening abdominal pain over the past few days which became quite severe at 2 AM this morning. He states his last meal was Monday evening when he had some pizza. He states since then he has had poor appetite with vague abdominal pain. He reports going to sleep last night feeling relatively okay but then he woke up at 2 AM with severe abdominal pain. He had associated nausea and vomiting that was nonbloody. He states he does take occasional NSAIDs for chronic back pain. He reports no fevers, chills. He denies any chest pain, dyspnea. Reports no recent sick contacts. He denies any alcohol use. In the emergency department, he was found to have pneumoperitoneum on CT with concerns for perforated duoedenal ulcer. General surgery was consulted he went to the OR for an expiratory laparotomy. He was found to have a perforated duodenal ulcer. 2 HOMA drains were placed as well as a gastrostomy tube with a feeding jejunostomy. He was transferred to intensive care unit postoperatively and medicine was consulted for medical management. The patient reports that his pain is currently well controlled. He still has some vague abdominal pain but this has improved since last night. He reports no chest pain, dyspnea. He denies any current fevers, chills, weakness, dizziness, lightheadedness. He feels pretty well overall considering the circumstances. He is currently not passing gas. He reports last bowel movement was over 24 hours ago. History - Past Medical History Cardiovascular: reports: None Respiratory: reports: None Neuro: reports: None Endocrine/Autoimmune: reports: None GI: reports: None : reports: None HEENT: reports: None Psych: reports: None Musculoskeletal: reports: None Derm: reports: None MRSA Hx?: No - Past Surgical History Ortho: reports: Rotator cuff repair (right side 15 years ago) - Family & Social History Family History Comment/Other: He reports both of his parents had myocardial infarction's. He reports no other family history to his knowledge. Living arrangement: At home Living Situation: With spouse/s.o. Social History Notes: He lives at home with his . He has been living here at [place] for the past 12 years. He works as a construction superintendent. He did smoke a pack a day quit 12 years ago. He does not drink any alcohol. - POLST Patient has POLST: No Meds/Allgy - Home Medications Home Medications: Ambulatory Orders Medication Instructions Recorded Confirmed Hydrocodone/Acetaminophen 1 - 2 each PO Q6H PRN #14 tablet 04/25/20 [Hydrocodon-Acetaminophen 5-325] Ibuprofen [Motrin] 800 mg PO Q8H PRN #30 tablet 04/25/20 Ondansetron Odt [Zofran] 4 mg TL Q6H PRN #10 tablet 04/25/20 - Allergies Allergies/Adverse Reactions: Allergies Allergy/AdvReac Type Severity Reaction Status Date / Time No Known Drug Allergies Allergy Verified 05/02/20 05:47 Review of Systems - Constitutional Constitutional: reports: Poor appetite. denies: Fatigue, Malaise, Weakness - Ears, Nose & Throat Ears, Nose & Throat: denies: Nasal discharge, Nasal congestion, Postnasal drainage, Sore throat - Cardiovascular Cariovascular: denies: Chest pain, Edema, Lightheadedness, Exertional dyspnea, Decr. exercise tolerance - Respiratory Respiratory: denies: Cough, SOB at rest, SOB with exertion - Gastrointestinal Gastrointestinal: reports: Abdominal pain, Nausea, Vomiting. denies: Const ipation - Genitourinary Genitourinary: denies: Dysuria, Frequency, Urgency - Musculoskeletal Musculoskeletal: denies: Muscle pain, Muscle aches - Integumentary Integumentary: denies: Rash - Neurological Neurological: denies: General weakness, Focal weakness, Dizziness, Numbness - Hematologic/Lymphatic Hematologic/Lymphatic: denies: Bleeding tendencies - All Other Systems All Other Systems: reports: Reviewed and negative Exam - Vital Signs Reviewed Vital Signs: Yes Vital Signs: Vital Signs x48h Temp Pulse Resp BP Pulse Ox 05/02/20 19:00 36.7 C 94 20 126/83 H 94 05/02/20 18:45 36.8 C 93 20 143/72 H 94 05/02/20 18:40 37 C 94 20 134/100 H 96 05/02/20 18:35 37 C 99 18 135/82 H 99 05/02/20 18:33 36.9 C 103 H 18 144/96 H 99 05/02/20 13:30 110 H 18 124/81 H 92 05/02/20 13:08 106 H 20 136/90 H 96 05/02/20 12:36 37.2 C 05/02/20 12:30 110 H 18 124/97 H 92 05/02/20 12:27 36.9 C 100 18 162/102 H 93 05/02/20 12:00 104 H 18 150/90 H 94 05/02/20 11:30 100 19 160/99 H 92 - Physical Exam General Appearance: positive: No acute distress, Alert Eyes Bilateral: positive: Normal inspection, Conjunctivae nml ENT: positive: ENT inspection nml Neck: positive: Nml inspection Respiratory: positive: No respiratory distress, Other (Diminished breath sounds in bilateral bases.). negative: Wheezes, Rales Cardiovascular: positive: No murmur, Tachycardia. negative: Irregularly irregular, Systolic murmur Abdomen: positive: Non-tender, No distention, Abnml bowel sounds (Hypoactive.), Other (Gastrostomy tube in place in left upper quadrant. 2 HOMA drains noted. W ound VAC in place over the mid abdomen. No surrounding erythema.). negative: Tenderness, Guarding, Rebound Skin: positive: Warm, Dry Extremities: positive: Full ROM, No pedal edema Neurologic/Psychiatric: positive: Oriented x3, Motor nml. negative: Disoriented to person, Disoriented to place, Disoriented to time Conclusion/Plan - Diagnosis Diagnosis: 1) Acute respiratory failure with hypoxia. 2) Severe sepsis. 3) Perforated duodenal ulcer. 4) Acute kidney injury. 5) Hypokalemia - Plan Plan: He is now status post expiratory laparotomy with [address] while gastrostomy tube with a feeding jejunostomy and wound VAC. Agree with continuing vancomycin, Zosyn, fluconazole empirically given his perforated duodenal ulcer and severe sepsis. Agree with Protonix IV. Pain control with Dilaudid GEOLOGICAL SPECIALIST pump. N.p.o. for time being and advance diet as tolerated per general surgery. He may ultimately need TPN for the time being. As for his respiratory failure, he appears comfortable on exam and he is not tachypneic with no symptoms of dyspnea. His ABG did show a PO2 of 60 on 5 L of oxygen via nasal cannula. His chest x-ray does just been completed is unremarkable any obvious infiltrate. Suspect his hypoxia may be secondary to his sepsis and atelectasis due to recent surgical intervention. He was saturating on room air upon his arrival to the emergency department and so I doubt that he would have a pulmonary embolism. There is no pulmonary edema to suggest fluid overload. We will continue supplemental oxygen and wean as tolerated. We will repeat ABG in the morning if remains hypoxic otherwise wean his oxygen to goal saturation greater than 92%. We will also repeat chest x-ray in the morning if he remains hypoxic. He did have acute kidney injury which has resolved on repeat labs. We will continue with IV hydration and continue to monitor. Avoid nephrotoxins. Thank you for this consult. We will continue to follow. - Lab Results Fish Bones: 05/02/20 19:27 05/02/20 19:27 - Diagnostic Imaging Results Diagnostic Imaging Results: positive: Final report reviewed
[2020-05-02 19:39] LABS: BASOPHILS # (AUTO) 0.1 10^3/uL (0.0-0.1); BASOPHILS % (AUTO) 0.6 %; EOSINOPHILS # (AUTO) 0.4 10^3/uL (0.0-0.7); EOSINOPHILS % (AUTO) 3.4 %; HGB - HEMOGLOBIN 14.4 g/dL (14.0-18.0); LYMPHOCYTES # (AUTO) 0.9 10^3/uL (1.5-3.5); LYMPHOCYTES % (AUTO) 6.5 %; MEAN CORPUSCULAR HEMOGLOBIN 30.3 pg (27.0-31.0); MEAN CORPUSCULAR HGB CONC 33.7 g/dL (32.0-36.0); MEAN CORPUSCULAR VOLUME 89.9 fL (80.0-94.0); MEAN PLATELET VOLUME 10.1 fL (7.4-11.4); MONOCYTES # (AUTO) 0.4 10^3/uL (0.0-1.0); MONOCYTES % (AUTO) 3.2 %; NEUTROPHILS # (AUTO) 11.2 10^3/uL (1.5-6.6); NEUTROPHILS % (AUTO) 85.8 %; PLT - PLATELET COUNT 214 10^3/uL (130-450); RED BLOOD COUNT 4.75 10^6/uL (4.70-6.10); RED CELL DISTRIBUTION WIDTH 14.6 % (12.0-15.0)
[2020-05-02 19:48] LABS: ALBUMIN 2.8 g/dL (3.2-5.5); ALBUMIN/GLOBULIN RATIO 0.9 (1.0-2.2); BILIRUBIN,TOTAL 1.4 mg/dL (0.2-1.0); CALCIUM 8.1 mg/dL (8.5-10.3); TOTAL PROTEIN 5.9 g/dL (6.7-8.2)
[2020-05-02 19:49] LABS: ABG BASE EXCESS -2.3 mmol/L (-2.0-3.0); ABG HCO3 21.6 mmol/L (22.0-26.0); ABG OXYGEN SATURATION 91 % (94-98); ABG PCO2 35 mmHg (34-45); ABG PH 7.41 (7.35-7.45); ABG PO2 60 mmHg (80-100); ABG TCO2 22.7 MMOL/L (21.0-29.0)
--- NOTE | 2020-05-02 19:51 | XRAY Report ---
PROCEDURE: Chest for Line Placement INDICATIONS: CVC line placement TECHNIQUE: One view of the chest was acquired. COMPARISON: Single view of the chest dated 05/02/2020 FINDINGS: Surgical changes and devices: A central venous catheter is projected over the SVC with the tip most l ikely in the right atrium or right ventricle. This catheter should be retracted approximately 8 cm to the cavoatrial junction. Lungs and pleura: No pleural effusions or pneumothorax. Lungs are clear. Mediastinum: Mediastinal contours appear normal. Heart size is enlarged, as before. Bones and chest wall: No suspicious bony lesions. Overlying soft tissues appear unremarkable. IMPRESSION: 1. Right central venous catheter likely within the right atrium. Catheter should be retracted approxi mately 8 cm to the cavoatrial junction. 2. Marked cardiomegaly. These findings were discussed with Dr. Marcelo at 7:50 PM on 05/02/2020. Reviewed by: Gris Vegas MD on 05/02/2020 7:50 PM PDT Approved by: Gris Vegas MD on 05/02/2020 7:50 PM PDT Station ID: [id number]
[2020-05-02] MEDS: D5NS W/20 MEQ KCL 1,000 ML IV SCH (19:57)
[2020-05-02] MEDS ORDERED: SODIUM CHLORIDE 0.9% 100ML 100 ML IV ONE (20:30)
[2020-05-02] MEDS: HEPARIN 5,000 UNIT/ML VIAL SUBQ SCH (20:30)
[2020-05-02] MEDS: PANTOPRAZOLE 80 MG in SODIUM CHLORIDE 0.9% 100ML 100 ML IV SCH (20:37)
--- NOTE | 2020-05-02 20:52 | PROCEDURE REPORT ---
Hospitalist Procedure Note - Procedure Note Procedure Note: the hospitalist- Dr Buenrostro called and reported that chest x ray shows the CVL is a little too far deep than required. I came in and while maintaining the sterility of the process, I removed the old dressing and sutures and pulled the catheter back 5 cm now 15cm at the skin. Catheter secured with an adhesive tape and sutures. X ray obtained and the tip of the catheter is in the atriocaval junction which should be appropriate. No ectopy noticed whatsoever. Patient tolerated the procedure well.
[2020-05-02] MEDS: HYDROmorphone PCA 20MG/100ML IV PRN (20:57)
[2020-05-02] MEDS ORDERED: VANCOMYCIN INJ 1.75 GM in SODIUM CHLORIDE 0.9% 500 ML IV SCH (21:00)
--- NOTE | 2020-05-02 21:07 | XRAY Report ---
PROCEDURE: Chest for Line Placement INDICATIONS: Central line placement TECHNIQUE: One view of the chest was acquired. COMPARISON: Single view of the chest dated 05/02/2020 FINDINGS: Surgical changes and devices: The central venous catheter has been retracted and the tip is now proje cted over the cavoatrial junction as expected. Lungs and pleura: No pleural effusions or pneumothorax. Lungs are clear. Mediastinum: Mediastinal contours appear normal. Heart size is enlarged, as before. Bones and chest wall: No suspicious bony lesions. Overlying soft tissues appear unremarkable. IMPRESSION: Central venous catheter, the tip of which is projected over the cavoatrial junction as expected. Reviewed by: Gris Vegas MD on 05/02/2020 9:05 PM PDT Approved by: Gris Vegas MD on 05/02/2020 9:05 PM PDT Station ID: [id number]
[2020-05-02] MEDS: polyethylene glycoL 3350 17 GM PACKET PO SCH (21:24)
[2020-05-02] MEDS: METOCLOPRAMIDE 10 MG/2 ML VIAL IVP SCH (23:33)
[2020-05-02] MEDS: SODIUM CHLORIDE FLUSH 0.9% 10 ML SYRINGE IVP PRN (23:34)
[2020-05-02] MEDS: SODIUM CHLORIDE FLUSH 0.9% 10 ML SYRINGE IVP SCH (23:34)
[2020-05-03] MEDS ORDERED: SODIUM CHLORIDE 0.9% 500 ML IV PRN (01:34)
[2020-05-03] MEDS: ACETAMINOPHEN 1,000 MG/100 ML 100 ML IV SCH ×4 (01:53→20:25)
[2020-05-03] MEDS: PIPERACILLIN/TAZOBACTAM 3.375 GM in SODIUM CHLORIDE 0.9% MINIBAG 100 ML IV SCH ×3 (02:40→18:57)
[2020-05-03] MEDS: D5NS W/20 MEQ KCL 1,000 ML IV SCH ×2 (02:44→16:51)
[2020-05-03] MEDS: METOCLOPRAMIDE 10 MG/2 ML VIAL IVP SCH ×4 (05:10→23:49)
[2020-05-03] MEDS: SODIUM CHLORIDE FLUSH 0.9% 10 ML SYRINGE IVP PRN ×2 (05:11→20:08)
[2020-05-03 05:22] LABS: BASOPHILS # (AUTO) 0.1 10^3/uL (0.0-0.1); BASOPHILS % (AUTO) 0.4 %; EOSINOPHILS # (AUTO) 0.2 10^3/uL (0.0-0.7); EOSINOPHILS % (AUTO) 1.2 %; HGB - HEMOGLOBIN 12.2 g/dL (14.0-18.0); LYMPHOCYTES # (AUTO) 0.9 10^3/uL (1.5-3.5); LYMPHOCYTES % (AUTO) 6.1 %; MEAN CORPUSCULAR HEMOGLOBIN 30.3 pg (27.0-31.0); MEAN CORPUSCULAR VOLUME 91.8 fL (80.0-94.0); MEAN PLATELET VOLUME 10.5 fL (7.4-11.4); MONOCYTES # (AUTO) 0.6 10^3/uL (0.0-1.0); MONOCYTES % (AUTO) 4.1 %; NEUTROPHILS # (AUTO) 12.3 10^3/uL (1.5-6.6); NEUTROPHILS % (AUTO) 87.5 %; PLT - PLATELET COUNT 201 10^3/uL (130-450); RED BLOOD COUNT 4.03 10^6/uL (4.70-6.10); RED CELL DISTRIBUTION WIDTH 14.9 % (12.0-15.0); WHITE BLOOD COUNT 14.1 x10^3/uL (4.8-10.8)
[2020-05-03 05:26] LABS: VBG PH 7.337 (7.31-7.41)
[2020-05-03 05:34] LABS: ALBUMIN 2.7 g/dL (3.2-5.5); BILIRUBIN,TOTAL 0.7 mg/dL (0.2-1.0); CALCIUM 7.5 mg/dL (8.5-10.3); CREATININE 1.1 mg/dL (0.6-1.2); PHOSPHORUS 3.4 mg/dL (2.5-4.6); TOTAL PROTEIN 5.4 g/dL (6.7-8.2)
[2020-05-03] MEDS: SODIUM CHLORIDE FLUSH 0.9% 10 ML SYRINGE IVP SCH ×4 (08:25→23:50)
[2020-05-03] MEDS: polyethylene glycoL 3350 17 GM PACKET PO SCH ×2 (08:25→21:04)
[2020-05-03] MEDS: HEPARIN 5,000 UNIT/ML VIAL SUBQ SCH ×2 (08:53→20:08)
[2020-05-03] MEDS ORDERED: PANTOPRAZOLE 80 MG in SODIUM CHLORIDE 0.9% 100ML 100 ML IV SCH (09:00)
[2020-05-03] MEDS ORDERED: FLUCONAZOLE 200 MG/100 ML 50 ML IV SCH (09:00)
--- NOTE | 2020-05-03 09:20 | PHARMACY PROGRESS NOTE ---
- Best Possible Medication History Admit Date and Time: 05/02/20 1836 Processed by: Pharmacy Medication History completed: Yes Patient Interview: Completed Patient has not had a PCP for 20 years As the person ultimately responsible for medication therapy, providers are able to order a medication from an existing home medication list in [facility] via the "Reconcile Routine" prior to Confirmation of that medication by senior support analyst. Such practice is discouraged except when the physician, in their clinical judgment, deems that a medical need exists for a medication without regard to previous use.
--- NOTE | 2020-05-03 11:17 | PROVIDER PROGRESS NOTE ---
Assessment/Plan - Problem List (1) Perforated gastric ulcer Assessment/Plan: POD #1 Dr Snow, Surgeon, is ordering his nutrition, iv fluids, drain and J tube orders, pain meds and antibiotics. Will follow along with you. (2) Severe sepsis Assessment/Plan: He presented with a white count of 21 which has improved to 14. He is still slightly tachycardic this morning, HR 101. Continue with empiric IV antibiotics, IV fluids. Please consider stopping the Vancomycin since he is MRSA negative. Please consider stopping the Fluconazole since a yeast infection is unlikely with this diagnosis Watch WBC daily. (3) Hyperglycemia Assessment/Plan: Will order an A1c to determine if he is a Diabetic. If DM, then will order ss Insulin coverage for a pt on J tube feeds. (4) Respiratory failure with hypoxia Assessment/Plan: Preop, this gentleman had good saturations on room air. Postop, he needed 10 L of supplemental oxygen overnight, this is decreased to 3 L of supplemental oxygen. He is definitely splinting and his I-S shows poor inspiratory force. Continue with supplemental oxygen, watch for postop atelectasis/pneumonia. (5) JN (acute kidney injury) Assessment/Plan: JN has resolved, but he still has prerenal azotemia. Continue with peripheral IV fluids. Follow BMP daily. - Current Meds Current Meds: Current Medications Generic Name Dose Route Start Last Admin Trade Name Freq PRN Reason Stop Dose Admin Heparin Sodium (Porcine) 5,000 unit 05/02/20 21:00 05/03/20 08:53 SUBQ 5,000 unit BID JOSE C Administration Hydromorphone HCl 0 mg 05/02/20 19:15 05/02/20 20:57 Dilaudid Rip/Mould Operator 20mg/100ml IV 20 mg PRN PRN Administration PAIN Protocol Potassium Chloride/Dextrose/Sod Cl 1,000 mls @ 125 mls/hr 05/02/20 19:00 05/03/20 06:00 IV 125 mls/hr .Q8H JOSE C Infusion Fluconazole 50 mls @ 0 mls/hr 05/03/20 09:00 05/03/20 09:23 Diflucan 200 Mg/100 Ml IV 50 mls/hr DAILY JOSE C Administration Per Protocol Vancomycin HCl 1.75 gm/ Sodium 500 mls @ 250 mls/hr 05/02/20 21:00 05/02/20 23:18 Chloride IV Infused Q24H JOSE C Infusion Acetaminophen 100 mls @ 400 mls/hr 05/03/20 02:00 05/03/20 08:40 Ofirmev IV Infused Q6H JOSE C Infusion Piperacillin Sod/Tazobactam 100 mls @ 25 mls/hr 05/03/20 03:00 05/03/20 06:50 Sod 3.375 gm/ Sodium Chloride IV Infused Q8H JOSE C Infusion Sodium Chloride 500 mls @ 0 mls/hr 05/03/20 01:34 05/03/20 06:00 Normal Saline 0.9% IV 10 mls/hr Q24H PRN Infusion TKO RATE TKO Pantoprazole Sodium 80 mg/ 100 mls @ 10 mls/hr 05/03/20 09:00 05/03/20 08:23 Sodium Chloride IV 10 mls/hr .Q10H JOSE C Administration Metoclopramide HCl 10 mg 05/03/20 00:00 05/03/20 05:10 Reglan Inj IVP 10 mg Q6HR JOSE C Administration Polyethylene Glycol 17 gm 05/02/20 21:00 05/03/20 08:25 Miralax PO 17 gm BID JOSE C Administration Sodium Chloride 10 ml 05/03/20 01:00 05/03/20 08:25 Normal Saline Flush 0.9% IVP 10 ml 0100,[id number],1700 JOSE C Administration Sodium Chloride 10 ml 05/02/20 18:36 05/02/20 23:34 Normal Saline Flush 0.9% IVP 10 ml PRN PRN Administration NEEDED PER PROVIDER ORDERS Sodium Chloride 20 ml 05/02/20 23:21 05/03/20 05:11 Normal Saline Flush 0.9% IVP 20 ml PRN PRN Administration After Blood Draw - Lab Result Fish Bone Diagrams: 05/03/20 05:00 05/03/20 05:00 - Additional Planning My Orders: My Active Orders 05/03/20 A1C [CHEM] Routine Subjective - Subjective Patient Reports: Resting Comfortably, Pain (He is on a PHOTOVOLTAIC SUBCONTRACTOR pump, he is able to "tolerate pain at 2/10".) Objective Vital Signs: Vital Signs - 24 hr 05/02/20 05/02/20 05/02/20 11:30 12:00 12:27 Temperature 36.9 C Heart Rate 100 104 H 100 Heart Rate [ Monitoring electrodes] Respiratory 19 18 18 Rate Blood Pressure 160/99 H 150/90 H 162/102 H Blood Pressure [Left Brachial artery] Blood Pressure [Right Radial artery] O2 Saturation 92 94 93 05/02/20 05/02/20 05/02/20 12:30 12:36 13:08 Temperature 37.2 C Heart Rate 110 H 106 H Heart Rate [ Monitoring electrodes] Respiratory 18 20 Rate Blood Pressure 124/97 H 136/90 H Blood Pressure [Left Brachial artery] Blood Pressure [Right Radial artery] O2 Saturation 92 96 05/02/20 05/02/20 05/02/20 13:30 18:33 18:35 Temperature 36.9 C 37 C Heart Rate 110 H 103 H 99 Heart Rate [ Monitoring electrodes] Respiratory 18 18 18 Rate Blood Pressure 124/81 H 144/96 H 135/82 H Blood Pressure [Left Brachial artery] Blood Pressure [Right Radial artery] O2 Saturation 92 99 99 05/02/20 05/02/20 05/02/20 18:40 18:45 19:00 Temperature 37 C 36.8 C 36.7 C Heart Rate 94 93 94 Heart Rate [ Monitoring electrodes] Respiratory 20 20 20 Rate Blood Pressure 134/100 H 143/72 H 126/83 H Blood Pressure [Left Brachial artery] Blood Pressure [Right Radial artery] O2 Saturation 96 94 94 05/02/20 05/02/20 05/02/20 19:57 20:00 21:00 Temperature 37.7 C H Heart Rate Heart Rate [ Monitoring electrodes] Respiratory 22 13 24 Rate Blood Pressure Blood Pressure 132/86 H 118/75 [Left Brachial artery] Blood Pressure [Right Radial artery] O2 Saturation 95 94 93 05/02/20 05/02/20 05/02/20 21:59 22:00 22:52 Temperature Heart Rate Heart Rate [ 82 Monitoring electrodes] Respiratory 21 20 21 Rate Blood Pressure Blood Pressure 120/76 [Left Brachial artery] Blood Pressure 135/73 H [Right Radial artery] O2 Saturation 95 05/02/20 05/02/20 05/02/20 23:00 23:16 23:49 Temperature 36.7 C Heart Rate Heart Rate [ 80 Monitoring electrodes] Respiratory 21 22 Rate Blood Pressure Blood Pressure 116/81 H [Left Brachial artery] Blood Pressure 132/71 H [Right Radial artery] O2 Saturation 94 05/03/20 05/03/20 05/03/20 00:00 00:53 01:00 Temperature Heart Rate Heart Rate [ 84 77 Monitoring electrodes] Respiratory 21 20 19 Rate Blood Pressure Blood Pressure 112/76 115/74 [Left Brachial artery] Blood Pressure 120/71 124/69 [Right Radial artery] O2 Saturation 93 94 05/03/20 05/03/20 05/03/20 01:55 02:00 02:45 Temperature Heart Rate Heart Rate [ 78 Monitoring electrodes] Respiratory 18 13 20 Rate Blood Pressure Blood Pressure [Left Brachial artery] Blood Pressure 134/75 H [Right Radial artery] O2 Saturation 95 94 05/03/20 05/03/20 05/03/20 02:49 03:00 03:33 Temperature Heart Rate Heart Rate [ 73 Monitoring electrodes] Respiratory 23 20 17 Rate Blood Pressure Blood Pressure [Left Brachial artery] Blood Pressure 126/69 [Right Radial artery] O2 Saturation 94 94 05/03/20 05/03/20 05/03/20 03:55 04:00 04:53 Temperature Heart Rate Heart Rate [ 90 Monitoring electrodes] Respiratory 17 24 17 Rate Blood Pressure Blood Pressure [Left Brachial artery] Blood Pressure 124/71 [Right Radial artery] O2 Saturation 94 95 05/03/20 05/03/20 05/03/20 05:00 06:00 06:18 Temperature 36.6 C Heart Rate Heart Rate [ 70 78 Monitoring electrodes] Respiratory 21 21 19 Rate Blood Pressure Blood Pressure 126/76 [Left Brachial artery] Blood Pressure 128/72 136/72 H [Right Radial artery] O2 Saturation 94 92 05/03/20 05/03/20 05/03/20 06:55 08:00 08:22 Temperature 36.6 C Heart Rate Heart Rate [ 68 72 Monitoring electrodes] Respiratory 19 23 22 Rate Blood Pressure Blood Pressure 115/76 [Left Brachial artery] Blood Pressure 118/65 136/75 H [Right Radial artery] O2 Saturation 93 93 05/03/20 05/03/20 05/03/20 09:00 10:00 10:12 Temperature Heart Rate Heart Rate [ 77 69 Monitoring electrodes] Respiratory 20 20 19 Rate Blood Pressure Blood Pressure [Left Brachial artery] Blood Pressure 123/75 126/77 [Right Radial artery] O2 Saturation 92 95 05/03/20 11:00 Temperature Heart Rate Heart Rate [ 101 H Monitoring electrodes] Respiratory 25 H Rate Blood Pressure Blood Pressure [Left Brachial artery] Blood Pressure 136/96 H [Right Radial artery] O2 Saturation 93 Oxygen O2 Source Nasal cannula I&O (Last 24 Hrs): Intake and Output Totals x24h 05/01/20 05/02/20 05/03/20 23:59 23:59 23:59 Intake Total 5745.916 1410.083 Output Total 586 310 Balance 5159.916 1100.083 General: Alert, Oriented x3 HEENT: Mucous membr. moist/pink, Other Neck: Supple (Male pattern baldness), No JVD Neuro: Alert, Non Focal Cardiovascular: Regular rate, No murmurs Respiratory: No respiratory distress, Breath sounds nml Abdomen: Other (Distended, firm, nontender, no bowel sounds are audible. Drains in placce.) Extremities: No edema - Results Results: Laboratory Results WBC 14.1 x10^3/uL (4.8-10.8) H 05/03/20 05:00 RBC 4.03 10^6/uL (4.70-6.10) L 05/03/20 05:00 Hgb 12.2 g/dL (14.0-18.0) L 05/03/20 05:00 Hct 37.0 % (42.0-52.0) L 05/03/20 05:00 MCV 91.8 fL (80.0-94.0) 05/03/20 05:00 MCH 30.3 pg (27.0-31.0) 05/03/20 05:00 MCHC 33.0 g/dL (32.0-36.0) 05/03/20 05:00 RDW 14.9 % (12.0-15.0) 05/03/20 05:00 Plt Count 201 10^3/uL (130-450) 05/03/20 05:00 MPV 10.5 fL (7.4-11.4) 05/03/20 05:00 Neut # (Auto) 12.3 10^3/uL (1.5-6.6) H 05/03/20 05:00 Lymph # (Auto) 0.9 10^3/uL (1.5-3.5) L 05/03/20 05:00 [place] # (Auto) 0.6 10^3/uL (0.0-1.0) 05/03/20 05:00 Eos # (Auto) 0.2 10^3/uL (0.0-0.7) 05/03/20 05:00 Baso # (Auto) 0.1 10^3/uL (0.0-0.1) 05/03/20 05:00 Absolute Nucleated RBC 0.00 x10^3/uL 05/03/20 05:00 Total Counted 100 05/02/20 05:45 Band Neuts % (Manual) 0 % (0-10) 05/02/20 05:45 Abnorm Lymph % (Manual) 0 % 05/02/20 05:45 Nucleated RBC % 0.0 /100WBC 05/03/20 05:00 Neutrophils # (Manual) 17.3 10^3/uL (1.5-6.6) H 05/02/20 05:45 Lymphocytes # (Manual) 2.3 10^3/uL (1.5-3.5) 05/02/20 05:45 Monocytes # (Manual) 1.5 10^3/uL (0.0-1.0) H 05/02/20 05:45 Eosinophils # (Manual) 0.0 10^3/uL (0-0.7) 05/02/20 05:45 Basophils # (Manual) 0.0 10^3/uL (0-0.1) 05/02/20 05:45 Differential Comment MANUAL DIFFERENTIAL 05/02/20 05:45 WBC Morphology NORMAL APPEARANCE (NORMAL) 05/02/20 05:45 Platelet Estimate NORMAL (130-450,000) (NORMAL) 05/02/20 05:45 Platelet Morphology NORMAL APPEARANCE (NORMAL) 05/02/20 05:45 RBC Morph Micro Appear NORMAL APPEARANCE (NORMAL) 05/02/20 05:45 Bld Gas Analysis Time 1950 05/02/20 19:42 Sample Site A-LINE 05/02/20 19:42 ABG pH 7.41 (7.35-7.45) 05/02/20 19:42 ABG pCO2 35 mmHg (34-45) 05/02/20 19:42 ABG pO2 60 mmHg (80-100) L 05/02/20 19:42 ABG HCO3 21.6 mmol/L (22.0-26.0) L 05/02/20 19:42 ABG Total CO2 22.7 MMOL/L (21.0-29.0) 05/02/20 19:42 ABG O2 Saturation 91 % (94-98) L 05/02/20 19:42 ABG Base Excess -2.3 mmol/L (-2.0-3.0) L 05/02/20 19:42 Jasiel Test NOT APPLICABLE 05/02/20 19:42 VBG pH 7.337 (7.31-7.41) 05/03/20 05:00 Ionized Calcium 1.06 mmol/L (1.15-1.33) L 05/03/20 05:00 O2 Delivery Device NASAL CANNULA 05/02/20 19:42 O2 Liters/Min 5.00 LPM 05/02/20 19:42 Sodium 138 mmol/L (135-145) 05/03/20 05:00 Potassium 3.8 mmol/L (3.5-5.0) 05/03/20 05:00 Chloride 107 mmol/L (101-111) 05/03/20 05:00 Carbon Dioxide 26 mmol/L (21-32) 05/03/20 05:00 Anion Gap 5.0 (6-13) L 05/03/20 05:00 BUN 23 mg/dL (6-20) H 05/03/20 05:00 Creatinine 1.1 mg/dL (0.6-1.2) 05/03/20 05:00 Estimated GFR (MDRD) 68 (>89) L 05/03/20 05:00 Glucose 163 mg/dL (70-100) H 05/03/20 05:00 POC Whole Bld Glucose 157 mg/dL (70 - 100) H 05/02/20 23:30 Calcium 7.5 mg/dL (8.5-10.3) L 05/03/20 05:00 Phosphorus 3.4 mg/dL (2.5-4.6) 05/03/20 05:00 Magnesium 2.0 mg/dL (1.7-2.8) 05/03/20 05:00 Total Bilirubin 0.7 mg/dL (0.2-1.0) 05/03/20 05:00 AST 55 IU/L (10-42) H 05/03/20 05:00 ALT 59 IU/L (10-60) 05/03/20 05:00 Alkaline Phosphatase 24 IU/L (42-121) L 05/03/20 05:00 Troponin I High Sens 21.0 ng/L (2.3-19.7) H* 05/02/20 22:45 Total Protein 5.4 g/dL (6.7-8.2) L 05/03/20 05:00 Albumin 2.7 g/dL (3.2-5.5) L 05/03/20 05:00 Globulin 2.7 g/dL (2.1-4.2) 05/03/20 05:00 Albumin/Globulin Ratio 1.0 (1.0-2.2) 05/03/20 05:00 Lipase 27 U/L (22-51) 05/02/20 05:45 Urine Color DARK YELLOW 05/02/20 10:47 Urine Clarity CLEAR (CLEAR) 05/02/20 10:47 Urine pH 5.5 PH (5.0-7.5) 05/02/20 10:47 Ur Specific [place] 1.015 (1.002-1.030) 05/02/20 10:47 Urine Protein 100 mg/dL (NEGATIVE) H 05/02/20 10:47 Urine Glucose (UA) NEGATIVE mg/dL (NEGATIVE) 05/02/20 10:47 Urine Ketones NEGATIVE mg/dL (NEGATIVE) 05/02/20 10:47 Urine Occult Blood MODERATE (NEGATIVE) H 05/02/20 10:47 Urine Nitrite NEGATIVE (NEGATIVE) 05/02/20 10:47 Urine Bilirubin NEGATIVE (NEGATIVE) 05/02/20 10:47 Urine Urobilinogen 1 (NORMAL) E.U./dL (NORMAL) 05/02/20 10:47 Ur Leukocyte Esterase NEGATIVE (NEGATIVE) 05/02/20 10:47 Urine RBC 0-5 /HPF (0-5) 05/02/20 10:47 Urine WBC 0-3 /HPF (0-3) 05/02/20 10:47 Ur Squamous Epith Cells MOD Squamous (<= Few) H 05/02/20 10:47 Urine Crystals 3-5 Calcium Oxalate /LPF 05/02/20 10:47 Urine Bacteria Many /HPF (None Seen) H 05/02/20 10:47 Urine Casts >50 Hyaline Casts /LPF6-10 Granular Casts /LPF 05/02/20 10:47 Urine Casts >50 Hyaline Casts /LPF6-10 Granular Casts /LPF 05/02/20 10:47 Ur Microscopic Review INDICATED 05/02/20 10:47 Urine Culture Comments NOT INDICATED 05/02/20 10:47 Nasal Screen MRSA (PCR) NEGATIVE (NEGATIVE) 05/02/20 19:00
[2020-05-03 11:56] LABS: HB2 TOTAL 12.4 g/dL; HEMOGLOBIN A1C 0.51 g/dL; HEMOGLOBIN A1C % 5.9 % (4.6-6.2)
--- NOTE | 2020-05-03 16:10 | PHARMACY PROGRESS NOTE ---
- Therapy Status Vancomycin regimen day #: 2 Therapy status: Awaiting steady state Basis for treatment: Empirical Treatment indication: Perferated viscus Trough goal: 15-20 Concurrent antibiotics: zosyn - JN Risk Risk level for Acute Kidney Injury: High Acute Kidney Injury risk factors: Piperacillin/Tozobactam, Wt >100kg or BMI >40, IV contrast within 72 hrs, Goal trough >15, Chronic baseline hypertension, Diabetes, Admission to ICU, Sepsis - Monitoring and Recommendation Clinical response to treatment: I&O Previous 24 hours 05/01/20 05/02/20 05/03/20 23:59 23:59 23:59 Intake Total 5745.916 1535.083 Output Total 586 570 Balance 5159.916 965.083 Lab Results 05/03/20 05/02/20 05/02/20 05:00 19:27 05:45 BUN 23 H 19 18 Creatinine 1.1 1.0 1.8 H Estimated GFR (MDRD) 68 L 76 L 39 L Monitoring plan: Daily serum creatinine, Draw trough early, Suggest ongoing fluid replacement Next trough due prior to maintenance dose #: 3 Next trough due (date/time): 05/05/20 at 1630 Areas for additional monitoring: IV to PO when appropriate, Therapy de- escalation based on culture results, Acute Kidney Injury Pharmacy recommendation: Continue current regime
[2020-05-03] MEDS ORDERED: VANCOMYCIN INJ 1 GM, VANCOMYCIN INJ 500 MG in SODIUM CHLORIDE 0.9% 500 ML IV SCH (17:00)
[2020-05-03 18:14] LABS: ABG BASE EXCESS -0.3 mmol/L (-2.0-3.0); ABG HCO3 23.6 mmol/L (22.0-26.0); ABG OXYGEN SATURATION 93 % (94-98); ABG PCO2 36 mmHg (34-45); ABG PH 7.43 (7.35-7.45); ABG PO2 62 mmHg (80-100); ABG TCO2 24.7 MMOL/L (21.0-29.0)
[2020-05-03] MEDS: PANTOPRAZOLE 80 MG in SODIUM CHLORIDE 0.9% 100ML 100 ML IV SCH (19:13)
[2020-05-03] MEDS: HYDROmorphone PCA 20MG/100ML IV PRN (19:16)
[2020-05-03] MEDS: PANTOPRAZOLE 40 MG VIAL IVP SCH (20:07)
--- NOTE | 2020-05-04 00:04 | PROVIDER PROGRESS NOTE ---
Subjective - General Admit Date: 05/02/20 Procedure Date: 05/02/20 Post Op Days: 2 Procedure Performed: Ex Lap, Pyloroplasty, Drain X2, Gastrostomy, Feeding Jejunostomy, Wound Vac - Review of Systems Drain Type: Omari #1 Epigastrium (exit RUQ); Omari #2 Pelvis (exit RLQ) Drain Output Description: Gastrostomy with Feeding Jejunostomy in the side port All Other Systems: positive: Reviewed and negative Objective - Patient Data Vital Signs: Vital Signs x48h Temp Pulse Resp BP BP BP Pulse Ox 05/03/20 23:57 37.2 C 05/03/20 23:47 23 05/03/20 23:00 71 22 131/80 H 97 05/03/20 22:00 63 20 131/81 H 95 05/03/20 21:00 67 20 114/77 92 05/03/20 20:58 20 05/03/20 20:56 19 93 05/03/20 20:00 93 19 138/81 H 94 05/03/20 19:43 23 93 05/03/20 19:09 21 05/03/20 19:00 36.8 C 84 24 141/76 H 92 05/03/20 18:00 87 22 136/80 H 100 05/03/20 17:00 75 21 135/82 H 96 05/03/20 16:14 24 Weight: Weight 05/02/20 05/03/20 05/04/20 23:59 23:59 23:59 Weight (kg) 117.5 kg 119.5 kg Intake & Output: Intake and Output Totals x24h 05/02/20 05/03/20 05/04/20 23:59 23:59 23:59 Intake Total 5745.916 4285.500 Output Total 586 1035 Balance 5159.916 3250.500 - Lab Results Lab Results: 05/03/20 05:00 05/03/20 05:00 Other Lab Results: Lab Results x24hrs 05/03/20 05/03/20 05/03/20 Range/Units 23:31 18:08 18:02 WBC (4.8-10.8) x10^3/uL RBC (4.70-6.10) 10^6/uL Hgb (14.0-18.0) g/dL Hct (42.0-52.0) % MCV (80.0-94.0) fL MCH (27.0-31.0) pg MCHC (32.0-36.0) g/dL RDW (12.0-15.0) % Plt Count (130-450) 10^3/uL MPV (7.4-11.4) fL Neut # (Auto) (1.5-6.6) 10^3/uL Lymph # (Auto) (1.5-3.5) 10^3/uL [place] # (Auto) (0.0-1.0) 10^3/uL Eos # (Auto) (0.0-0.7) 10^3/uL Baso # (Auto) (0.0-0.1) 10^3/uL Absolute Nucleated RBC x10^3/uL Nucleated RBC % /100WBC Bld Gas Analysis Time 1814 Sample Site A-LINE ABG pH 7.43 (7.35-7.45) ABG pCO2 36 (34-45) mmHg ABG pO2 62 L (80-100) mmHg ABG HCO3 23.6 (22.0-26.0) mmol/L ABG Total CO2 24.7 (21.0-29.0) MMOL/L ABG O2 Saturation 93 L (94-98) % ABG Base Excess -0.3 (-2.0-3.0) mmol/L Jasiel Test NOT APPLICABLE VBG pH (7.31-7.41) Ionized Calcium (1.15-1.33) mmol/L O2 Delivery Device NASAL CANNULA O2 Liters/Min 34.00 LPM Sodium (135-145) mmol/L Potassium (3.5-5.0) mmol/L Chloride (101-111) mmol/L Carbon Dioxide (21-32) mmol/L Anion Gap (6-13) BUN (6-20) mg/dL Creatinine (0.6-1.2) mg/dL Estimated GFR (MDRD) (>89) Glucose (70-100) mg/dL POC Whole Bld Glucose 141 H 126 H (70 - 100) mg/dL Glycated Hemoglobin (4.6-6.2) % Estim Average Glucose (70-100) Calcium (8.5-10.3) mg/dL Phosphorus (2.5-4.6) mg/dL Magnesium (1.7-2.8) mg/dL Total Bilirubin (0.2-1.0) mg/dL AST (10-42) IU/L ALT (10-60) IU/L Alkaline Phosphatase (42-121) IU/L Total Protein (6.7-8.2) g/dL Albumin (3.2-5.5) g/dL Globulin (2.1-4.2) g/dL Albumin/Globulin Ratio (1.0-2.2) 05/03/20 05/03/20 05/03/20 Range/Units 11:52 11:36 05:00 WBC (4.8-10.8) x10^3/uL RBC (4.70-6.10) 10^6/uL Hgb (14.0-18.0) g/dL Hct (42.0-52.0) % MCV (80.0-94.0) fL MCH (27.0-31.0) pg MCHC (32.0-36.0) g/dL RDW (12.0-15.0) % Plt Count (130-450) 10^3/uL MPV (7.4-11.4) fL Neut # (Auto) (1.5-6.6) 10^3/uL Lymph # (Auto) (1.5-3.5) 10^3/uL [place] # (Auto) (0.0-1.0) 10^3/uL Eos # (Auto) (0.0-0.7) 10^3/uL Baso # (Auto) (0.0-0.1) 10^3/uL Absolute Nucleated RBC x10^3/uL Nucleated RBC % /100WBC Bld Gas Analysis Time Sample Site ABG pH (7.35-7.45) ABG pCO2 (34-45) mmHg ABG pO2 (80-100) mmHg ABG HCO3 (22.0-26.0) mmol/L ABG Total CO2 (21.0-29.0) MMOL/L ABG O2 Saturation (94-98) % ABG Base Excess (-2.0-3.0) mmol/L Jasiel Test VBG pH 7.337 (7.31-7.41) Ionized Calcium 1.06 L (1.15-1.33) mmol/L O2 Delivery Device O2 Liters/Min LPM Sodium (135-145) mmol/L Potassium (3.5-5.0) mmol/L Chloride (101-111) mmol/L Carbon Dioxide (21-32) mmol/L Anion Gap (6-13) BUN (6-20) mg/dL Creatinine (0.6-1.2) mg/dL Estimated GFR (MDRD) (>89) Glucose (70-100) mg/dL POC Whole Bld Glucose 131 H (70 - 100) mg/dL Glycated Hemoglobin 5.9 (4.6-6.2) % Estim Average Glucose 123 H (70-100) Calcium (8.5-10.3) mg/dL Phosphorus (2.5-4.6) mg/dL Magnesium (1.7-2.8) mg/dL Total Bilirubin (0.2-1.0) mg/dL AST (10-42) IU/L ALT (10-60) IU/L Alkaline Phosphatase (42-121) IU/L Total Protein (6.7-8.2) g/dL Albumin (3.2-5.5) g/dL Globulin (2.1-4.2) g/dL Albumin/Globulin Ratio (1.0-2.2) 05/03/20 05/03/20 Range/Units 05:00 05:00 WBC 14.1 H (4.8-10.8) x10^3/uL RBC 4.03 L (4.70-6.10) 10^6/uL Hgb 12.2 L (14.0-18.0) g/dL Hct 37.0 L (42.0-52.0) % MCV 91.8 (80.0-94.0) fL MCH 30.3 (27.0-31.0) pg MCHC 33.0 (32.0-36.0) g/dL RDW 14.9 (12.0-15.0) % Plt Count 201 (130-450) 10^3/uL MPV 10.5 (7.4-11.4) fL Neut # (Auto) 12.3 H (1.5-6.6) 10^3/uL Lymph # (Auto) 0.9 L (1.5-3.5) 10^3/uL [place] # (Auto) 0.6 (0.0-1.0) 10^3/uL Eos # (Auto) 0.2 (0.0-0.7) 10^3/uL Baso # (Auto) 0.1 (0.0-0.1) 10^3/uL Absolute Nucleated RBC 0.00 x10^3/uL Nucleated RBC % 0.0 /100WBC Bld Gas Analysis Time Sample Site ABG pH (7.35-7.45) ABG pCO2 (34-45) mmHg ABG pO2 (80-100) mmHg ABG HCO3 (22.0-26.0) mmol/L ABG Total CO2 (21.0-29.0) MMOL/L ABG O2 Saturation (94-98) % ABG Base Excess (-2.0-3.0) mmol/L Jasiel Test VBG pH (7.31-7.41) Ionized Calcium (1.15-1.33) mmol/L O2 Delivery Device O2 Liters/Min LPM Sodium 138 (135-145) mmol/L Potassium 3.8 (3.5-5.0) mmol/L Chloride 107 (101-111) mmol/L Carbon Dioxide 26 (21-32) mmol/L Anion Gap 5.0 L (6-13) BUN 23 H (6-20) mg/dL Creatinine 1.1 (0.6-1.2) mg/dL Estimated GFR (MDRD) 68 L (>89) Glucose 163 H (70-100) mg/dL POC Whole Bld Glucose (70 - 100) mg/dL Glycated Hemoglobin (4.6-6.2) % Estim Average Glucose (70-100) Calcium 7.5 L (8.5-10.3) mg/dL Phosphorus 3.4 (2.5-4.6) mg/dL Magnesium 2.0 (1.7-2.8) mg/dL Total Bilirubin 0.7 (0.2-1.0) mg/dL AST 55 H (10-42) IU/L ALT 59 (10-60) IU/L Alkaline Phosphatase 24 L (42-121) IU/L Total Protein 5.4 L (6.7-8.2) g/dL Albumin 2.7 L (3.2-5.5) g/dL Globulin 2.7 (2.1-4.2) g/dL Albumin/Globulin Ratio 1.0 (1.0-2.2) - Current Medications Current Medications: Current Medications Generic Name Dose Route Start Last Admin Trade Name Freq PRN Reason Stop Dose Admin Heparin Sodium (Porcine) 5,000 unit 05/02/20 21:00 05/03/20 20:08 SUBQ 5,000 unit BID JOSE C Administration Hydromorphone HCl 0 mg 05/02/20 19:15 05/03/20 19:16 Dilaudid [employer] 20mg/100ml IV 20 mg PRN PRN Administration PAIN Protocol Potassium Chloride/Dextrose/Sod Cl 1,000 mls @ 125 mls/hr 05/02/20 19:00 05/03/20 23:00 IV 125 mls/hr .Q8H JOSE C Infusion Acetaminophen 100 mls @ 400 mls/hr 05/03/20 02:00 05/03/20 20:40 Ofirmev IV Infused Q6H JOSE C Infusion Piperacillin Sod/Tazobactam 100 mls @ 25 mls/hr 05/03/20 03:00 05/03/20 23:26 Sod 3.375 gm/ Sodium Chloride IV Infused Q8H JOSE C Infusion Sodium Chloride 500 mls @ 0 mls/hr 05/03/20 01:34 05/03/20 06:00 Normal Saline 0.9% IV 10 mls/hr Q24H PRN Infusion TKO RATE TKO Vancomycin HCl 1 gm/ 500 mls @ 250 mls/hr 05/03/20 17:00 05/03/20 19:14 Vancomycin HCl 500 mg/ Sodium IV Infused Chloride Q24H JOSE C Infusion Metoclopramide HCl 10 mg 05/03/20 00:00 05/03/20 23:49 Reglan Inj IVP 10 mg Q6HR JOSE C Administration Pantoprazole Sodium 40 mg 05/03/20 21:00 05/03/20 20:07 Protonix IVP 40 mg BID JOSE C Administration Polyethylene Glycol 17 gm 05/02/20 21:00 05/03/20 21:04 Miralax PO 17 gm BID JOSE C Administration Sodium Chloride 10 ml 05/03/20 01:00 05/03/20 23:50 Normal Saline Flush 0.9% IVP 10 ml 0100,0900,1700 JOSE C Administration Sodium Chloride 10 ml 05/02/20 18:36 05/03/20 20:08 Normal Saline Flush 0.9% IVP 10 ml PRN PRN Administration NEEDED PER PROVIDER ORDERS Sodium Chloride 20 ml 05/02/20 23:21 05/03/20 05:11 Normal Saline Flush 0.9% IVP 20 ml PRN PRN Administration After Blood Draw
[2020-05-04] MEDS: D5NS W/20 MEQ KCL 1,000 ML IV SCH ×2 (01:30→02:32)
[2020-05-04] MEDS: ACETAMINOPHEN 1,000 MG/100 ML 100 ML IV SCH ×4 (02:11→21:07)
[2020-05-04] MEDS: PIPERACILLIN/TAZOBACTAM 3.375 GM in SODIUM CHLORIDE 0.9% MINIBAG 100 ML IV SCH ×3 (02:12→18:01)
[2020-05-04 05:24] LABS: VBG PH 7.349 (7.31-7.41)
[2020-05-04 05:27] LABS: BASOPHILS % (AUTO) 0.2 %; EOSINOPHILS % (AUTO) 0.3 %; LYMPHOCYTES # (AUTO) 1.3 10^3/uL (1.5-3.5); MEAN CORPUSCULAR HEMOGLOBIN 29.3 pg (27.0-31.0); MEAN CORPUSCULAR HGB CONC 31.6 g/dL (32.0-36.0); MEAN CORPUSCULAR VOLUME 92.6 fL (80.0-94.0); MEAN PLATELET VOLUME 11.1 fL (7.4-11.4); MONOCYTES # (AUTO) 0.6 10^3/uL (0.0-1.0); MONOCYTES % (AUTO) 4.6 %; NEUTROPHILS % (AUTO) 82.9 %; PLT - PLATELET COUNT 191 10^3/uL (130-450); RED BLOOD COUNT 3.76 10^6/uL (4.70-6.10); WHITE BLOOD COUNT 12.1 x10^3/uL (4.8-10.8)
[2020-05-04 05:48] LABS: ALBUMIN 2.5 g/dL (3.2-5.5); ALBUMIN/GLOBULIN RATIO 0.8 (1.0-2.2); BILIRUBIN,TOTAL 0.5 mg/dL (0.2-1.0); CALCIUM 7.6 mg/dL (8.5-10.3); CREATININE 0.8 mg/dL (0.6-1.2); MAGNESIUM 2.1 mg/dL (1.7-2.8); PHOSPHORUS 1.3 mg/dL (2.5-4.6); TOTAL PROTEIN 5.6 g/dL (6.7-8.2)
[2020-05-04] MEDS: METOCLOPRAMIDE 10 MG/2 ML VIAL IVP SCH ×4 (07:04→23:53)
[2020-05-04] MEDS: SODIUM CHLORIDE FLUSH 0.9% 10 ML SYRINGE IVP PRN ×2 (07:04→21:09)
[2020-05-04] MEDS: polyethylene glycoL 3350 17 GM PACKET PO SCH ×2 (09:00→21:06)
[2020-05-04] MEDS: HEPARIN 5,000 UNIT/ML VIAL SUBQ SCH ×2 (09:06→21:16)
[2020-05-04] MEDS: FLUCONAZOLE 200 MG/100 ML 100 ML IV SCH (09:09)
[2020-05-04] MEDS: SODIUM CHLORIDE FLUSH 0.9% 10 ML SYRINGE IVP SCH ×3 (09:11→21:09)
[2020-05-04] MEDS: PANTOPRAZOLE 40 MG VIAL IVP SCH ×2 (09:11→21:17)
[2020-05-04] MEDS ORDERED: POTASSIUM PHOSPHATE 21 MMOL in SODIUM CHLORIDE 0.9% 250 ML IV ONE (10:00)
--- NOTE | 2020-05-04 10:22 | PROVIDER PROGRESS NOTE ---
Subjective - General Admit Date: 05/02/20 Procedure Date: 05/02/20 Post Op Days: 2 Procedure Performed: Ex Lap, Pyloroplasty, Drain X2, Gastrostomy, Feeding Jejunostomy, Wound Vac - Review of Systems Drain Type: Omari #1 Epigastrium (exit RUQ); Omari #2 Pelvis (exit RLQ) Drain Output Description: Gastrostomy with Feeding Jejunostomy in the side port Approximate mls Output: Serosanguinous General: positive: No symptoms HEENT: positive: No symptoms Pulmonary: positive: No symptoms Cardiovascular: positive: No symptoms Gastrointestinal: positive: No symptoms Genitourinary: positive: Other (Voiding by melton, eager for removal.) Musculoskeletal: positive: No symptoms Skin: positive: No symptoms All Other Systems: positive: Reviewed and negative Objective - Patient Data Vital Signs: Vital Signs x48h Temp Pulse Resp BP Pulse Ox 05/04/20 08:58 22 05/04/20 08:00 36.8 C 87 27 H 151/84 H 95 05/04/20 07:00 93 22 152/99 H 92 05/04/20 06:00 77 23 149/93 H 91 L 05/04/20 05:46 15 94 05/04/20 05:00 78 24 139/99 H 92 05/04/20 04:11 20 05/04/20 04:00 36.8 C 76 21 146/99 H 95 05/04/20 03:00 88 20 130/81 H 96 Weight: Weight 05/02/20 05/03/20 05/04/20 23:59 23:59 23:59 Weight (kg) 117.5 kg 119.5 kg Intake & Output: Intake and Output Totals x24h 05/02/20 05/03/20 05/04/20 23:59 23:59 23:59 Intake Total 5745.916 4345.500 1727.084 Output Total 586 1035 2090 Balance 5159.916 3310.500 -362.916 - Lab Results Lab Results: 05/04/20 11:05 05/04/20 04:00 Other Lab Results: Lab Results x24hrs 05/04/20 05/04/20 05/04/20 Range/Units 06:00 04:00 04:00 WBC (4.8-10.8) x10^3/uL RBC (4.70-6.10) 10^6/uL Hgb (14.0-18.0) g/dL Hct (42.0-52.0) % MCV (80.0-94.0) fL MCH (27.0-31.0) pg MCHC (32.0-36.0) g/dL RDW (12.0-15.0) % Plt Count (130-450) 10^3/uL MPV (7.4-11.4) fL Neut # (Auto) (1.5-6.6) 10^3/uL Lymph # (Auto) (1.5-3.5) 10^3/uL [place] # (Auto) (0.0-1.0) 10^3/uL Eos # (Auto) (0.0-0.7) 10^3/uL Baso # (Auto) (0.0-0.1) 10^3/uL Absolute Nucleated RBC x10^3/uL Nucleated RBC % /100WBC Bld Gas Analysis Time Sample Site ABG pH (7.35-7.45) ABG pCO2 (34-45) mmHg ABG pO2 (80-100) mmHg ABG HCO3 (22.0-26.0) mmol/L ABG Total CO2 (21.0-29.0) MMOL/L ABG O2 Saturation (94-98) % ABG Base Excess (-2.0-3.0) mmol/L Jasiel Test VBG pH 7.349 (7.31-7.41) Ionized Calcium 1.10 L (1.15-1.33) mmol/L O2 Delivery Device O2 Liters/Min LPM Sodium (135-145) mmol/L Potassium (3.5-5.0) mmol/L Chloride (101-111) mmol/L Carbon Dioxide (21-32) mmol/L Anion Gap (6-13) BUN (6-20) mg/dL Creatinine (0.6-1.2) mg/dL Estimated GFR (MDRD) (>89) Glucose (70-100) mg/dL POC Whole Bld Glucose 152 H (70 - 100) mg/dL Glycated Hemoglobin (4.6-6.2) % Estim Average Glucose (70-100) Calcium (8.5-10.3) mg/dL Phosphorus (2.5-4.6) mg/dL Magnesium (1.7-2.8) mg/dL Total Bilirubin (0.2-1.0) mg/dL AST (10-42) IU/L ALT (10-60) IU/L Alkaline Phosphatase (42-121) IU/L Total Protein (6.7-8.2) g/dL Albumin (3.2-5.5) g/dL Globulin (2.1-4.2) g/dL Albumin/Globulin Ratio (1.0-2.2) Prealbumin 7 L (18-45) mg/dL 05/04/20 05/04/20 05/03/20 Range/Units 04:00 04:00 23:31 WBC 12.1 H (4.8-10.8) x10^3/uL RBC 3.76 L (4.70-6.10) 10^6/uL Hgb 11.0 L (14.0-18.0) g/dL Hct 34.8 L (42.0-52.0) % MCV 92.6 (80.0-94.0) fL MCH 29.3 (27.0-31.0) pg MCHC 31.6 L (32.0-36.0) g/dL RDW 15.0 (12.0-15.0) % Plt Count 191 (130-450) 10^3/uL MPV 11.1 (7.4-11.4) fL Neut # (Auto) 10.0 H (1.5-6.6) 10^3/uL Lymph # (Auto) 1.3 L (1.5-3.5) 10^3/uL [place] # (Auto) 0.6 (0.0-1.0) 10^3/uL Eos # (Auto) 0.0 (0.0-0.7) 10^3/uL Baso # (Auto) 0.0 (0.0-0.1) 10^3/uL Absolute Nucleated RBC 0.00 x10^3/uL Nucleated RBC % 0.0 /100WBC Bld Gas Analysis Time Sample Site ABG pH (7.35-7.45) ABG pCO2 (34-45) mmHg ABG pO2 (80-100) mmHg ABG HCO3 (22.0-26.0) mmol/L ABG Total CO2 (21.0-29.0) MMOL/L ABG O2 Saturation (94-98) % ABG Base Excess (-2.0-3.0) mmol/L Jasiel Test VBG pH (7.31-7.41) Ionized Calcium (1.15-1.33) mmol/L O2 Delivery Device O2 Liters/Min LPM Sodium 138 (135-145) mmol/L Potassium 3.7 (3.5-5.0) mmol/L Chloride 107 (101-111) mmol/L Carbon Dioxide 26 (21-32) mmol/L Anion Gap 5.0 L (6-13) BUN 18 (6-20) mg/dL Creatinine 0.8 (0.6-1.2) mg/dL Estimated GFR (MDRD) 98 (>89) Glucose 157 H (70-100) mg/dL POC Whole Bld Glucose 141 H (70 - 100) mg/dL Glycated Hemoglobin (4.6-6.2) % Estim Average Glucose (70-100) Calcium 7.6 L (8.5-10.3) mg/dL Phosphorus 1.3 L (2.5-4.6) mg/dL Magnesium 2.1 (1.7-2.8) mg/dL Total Bilirubin 0.5 (0.2-1.0) mg/dL AST 64 H (10-42) IU/L ALT 78 H (10-60) IU/L Alkaline Phosphatase 32 L (42-121) IU/L Total Protein 5.6 L (6.7-8.2) g/dL Albumin 2.5 L (3.2-5.5) g/dL Globulin 3.1 (2.1-4.2) g/dL Albumin/Globulin Ratio 0.8 L (1.0-2.2) Prealbumin (18-45) mg/dL 05/03/20 05/03/20 05/03/20 Range/Units 18:08 18:02 11:52 WBC (4.8-10.8) x10^3/uL RBC (4.70-6.10) 10^6/uL Hgb (14.0-18.0) g/dL Hct (42.0-52.0) % MCV (80.0-94.0) fL MCH (27.0-31.0) pg MCHC (32.0-36.0) g/dL RDW (12.0-15.0) % Plt Count (130-450) 10^3/uL MPV (7.4-11.4) fL Neut # (Auto) (1.5-6.6) 10^3/uL Lymph # (Auto) (1.5-3.5) 10^3/uL [place] # (Auto) (0.0-1.0) 10^3/uL Eos # (Auto) (0.0-0.7) 10^3/uL Baso # (Auto) (0.0-0.1) 10^3/uL Absolute Nucleated RBC x10^3/uL Nucleated RBC % /100WBC Bld Gas Analysis Time 1814 Sample Site A-LINE ABG pH 7.43 (7.35-7.45) ABG pCO2 36 (34-45) mmHg ABG pO2 62 L (80-100) mmHg ABG HCO3 23.6 (22.0-26.0) mmol/L ABG Total CO2 24.7 (21.0-29.0) MMOL/L ABG O2 Saturation 93 L (94-98) % ABG Base Excess -0.3 (-2.0-3.0) mmol/L Jasiel Test NOT APPLICABLE VBG pH (7.31-7.41) Ionized Calcium (1.15-1.33) mmol/L O2 Delivery Device NASAL CANNULA O2 Liters/Min 34.00 LPM Sodium (135-145) mmol/L Potassium (3.5-5.0) mmol/L Chloride (101-111) mmol/L Carbon Dioxide (21-32) mmol/L Anion Gap (6-13) BUN (6-20) mg/dL Creatinine (0.6-1.2) mg/dL Estimated GFR (MDRD) (>89) Glucose (70-100) mg/dL POC Whole Bld Glucose 126 H 131 H (70 - 100) mg/dL Glycated Hemoglobin (4.6-6.2) % Estim Average Glucose (70-100) Calcium (8.5-10.3) mg/dL Phosphorus (2.5-4.6) mg/dL Magnesium (1.7-2.8) mg/dL Total Bilirubin (0.2-1.0) mg/dL AST (10-42) IU/L ALT (10-60) IU/L Alkaline Phosphatase (42-121) IU/L Total Protein (6.7-8.2) g/dL Albumin (3.2-5.5) g/dL Globulin (2.1-4.2) g/dL Albumin/Globulin Ratio (1.0-2.2) Prealbumin (18-45) mg/dL / Range/Units 11:36 WBC (4.8-10.8) x10^3/uL RBC (4.70-6.10) 10^6/uL Hgb (14.0-18.0) g/dL Hct (42.0-52.0) % MCV (80.0-94.0) fL MCH (27.0-31.0) pg MCHC (32.0-36.0) g/dL RDW (12.0-15.0) % Plt Count (130-450) 10^3/uL MPV (7.4-11.4) fL Neut # (Auto) (1.5-6.6) 10^3/uL Lymph # (Auto) (1.5-3.5) 10^3/uL [place] # (Auto) (0.0-1.0) 10^3/uL Eos # (Auto) (0.0-0.7) 10^3/uL Baso # (Auto) (0.0-0.1) 10^3/uL Absolute Nucleated RBC x10^3/uL Nucleated RBC % /100WBC Bld Gas Analysis Time Sample Site ABG pH (7.35-7.45) ABG pCO2 (34-45) mmHg ABG pO2 (80-100) mmHg ABG HCO3 (22.0-26.0) mmol/L ABG Total CO2 (21.0-29.0) MMOL/L ABG O2 Saturation (94-98) % ABG Base Excess (-2.0-3.0) mmol/L Jasiel Test VBG pH (7.31-7.41) Ionized Calcium (1.15-1.33) mmol/L O2 Delivery Device O2 Liters/Min LPM Sodium (135-145) mmol/L Potassium (3.5-5.0) mmol/L Chloride (101-111) mmol/L Carbon Dioxide (21-32) mmol/L Anion Gap (6-13) BUN (6-20) mg/dL Creatinine (0.6-1.2) mg/dL Estimated GFR (MDRD) (>89) Glucose (70-100) mg/dL POC Whole Bld Glucose (70 - 100) mg/dL Glycated Hemoglobin 5.9 (4.6-6.2) % Estim Average Glucose 123 H (70-100) Calcium (8.5-10.3) mg/dL Phosphorus (2.5-4.6) mg/dL Magnesium (1.7-2.8) mg/dL Total Bilirubin (0.2-1.0) mg/dL AST (10-42) IU/L ALT (10-60) IU/L Alkaline Phosphatase (42-121) IU/L Total Protein (6.7-8.2) g/dL Albumin (3.2-5.5) g/dL Globulin (2.1-4.2) g/dL Albumin/Globulin Ratio (1.0-2.2) Prealbumin (18-45) mg/dL - Current Medications Current Medications: Current Medications Generic Name Dose Route Start Last Admin Trade Name Freq PRN Reason Stop Dose Admin Heparin Sodium (Porcine) 5,000 unit 05/02/20 21:00 05/04/20 09:06 SUBQ 5,000 unit BID JOSE C Administration Hydromorphone HCl 0 mg 05/02/20 19:15 05/03/20 19:16 Dilaudid Estimator And Drafter 20mg/100ml IV 20 mg PRN PRN Administration PAIN Protocol Potassium Chloride/Dextrose/Sod Cl 1,000 mls @ 125 mls/hr 05/02/20 19:00 05/04/20 05:00 IV 125 mls/hr .Q8H JOSE C Infusion Acetaminophen 100 mls @ 400 mls/hr 05/03/20 02:00 05/04/20 08:48 Ofirmev IV 400 mls/hr Q6H JOSE C Administration Piperacillin Sod/Tazobactam 100 mls @ 25 mls/hr 05/03/20 03:00 05/04/20 07:00 Sod 3.375 gm/ Sodium Chloride IV Infused Q8H JOSE C Infusion Sodium Chloride 500 mls @ 0 mls/hr 05/03/20 01:34 05/03/20 06:00 Normal Saline 0.9% IV 10 mls/hr Q24H PRN Infusion TKO RATE TKO Fluconazole 100 mls @ 100 mls/hr 05/04/20 09:00 05/04/20 09:09 Diflucan 200 Mg/100 Ml IV 100 mls/hr DAILY JOSE C Administration Per Protocol Vancomycin HCl 1 gm/ 500 mls @ 250 mls/hr 05/03/20 17:00 05/03/20 19:14 Vancomycin HCl 500 mg/ Sodium IV Infused Chloride Q24H JOSE C Infusion Metoclopramide HCl 10 mg 05/03/20 00:00 05/04/20 07:04 Reglan Inj IVP 10 mg Q6HR JOSE C Administration Pantoprazole Sodium 40 mg 05/03/20 21:00 05/04/20 09:11 Protonix IVP 40 mg BID JOSE C Administration Polyethylene Glycol 17 gm 05/02/20 21:00 05/04/20 09:00 Miralax PO 17 gm BID JOSE C Administration Sodium Chloride 10 ml 05/03/20 01:00 05/04/20 09:11 Normal Saline Flush 0.9% IVP 10 ml 0100,[id number],1700 JOSE C Administration Sodium Chloride 10 ml 05/02/20 18:36 05/04/20 07:04 Normal Saline Flush 0.9% IVP 10 ml PRN PRN Administration NEEDED PER PROVIDER ORDERS Sodium Chloride 20 ml 05/02/20 23:21 05/03/20 05:11 Normal Saline Flush 0.9% IVP 20 ml PRN PRN Administration After Blood Draw - Physical Exam Wound/Incisions: positive: Healing well, Dressing dry and intact, Other (Wound vac in place.) General Appearance: positive: No acute distress Eyes Bilateral: positive: Normal inspection, PERRL, EOMI ENT: positive: ENT inspection nml Neck: positive: Nml inspection Respiratory: positive: Chest non-tender, No respiratory distress Cardiovascular: positive: Regular rate & rhythm Abdomen: positive: Other (Soft, appropriately TTP, no rebound/gurading, wound vac intact, gastrostomy in place with jejunostomy extension.). negative: No distention, Guarding, Rebound Skin: positive: Color nml Extremities: positive: Non-tender, Full ROM Neurologic/Psychiatric: positive: Oriented x3, CN's nml (2-12) ABX Reporting Has patient been on IV antibiotics over the past 48 hours?: Yes Impression/Plan - Problem List Problem List: 1. Neuro: [place] mgmt with ICE DELIVERY DRIVER/Dilaudid, no toradol/NSAIDs. CIWA/anxiolytics. 2. CVS: trend H/H. Maintain telemetry and ICU care. DVT ppx. Fluid resuscitate. 3. Respiratory: O2 and nebulizers. 4. GI: PPI gtt transition to BID. Consider TPN for prolonged ileus. Gastrostomy for decompression. Feeding jejunostomy. Upper GI series with follow through to evaluate for extravasation in 5-7days. Continue drains until then 5. ID: continue abx empirically for bilious and purullent peritonitis 6. Continue wound vac. 7. Discontinue melton. Lytes replacement protocol. Continue fluids. 8. ICU tonight. Consider transfer tomorrow.
[2020-05-04] MEDS ORDERED: diazePAM INJ 5 MG/ML SYRINGE IVP PRN (10:46)
[2020-05-04 11:11] LABS: BASOPHILS % (AUTO) 0.3 %; EOSINOPHILS # (AUTO) 0.1 10^3/uL (0.0-0.7); EOSINOPHILS % (AUTO) 0.5 %; HGB - HEMOGLOBIN 12.1 g/dL (14.0-18.0); LYMPHOCYTES # (AUTO) 1.6 10^3/uL (1.5-3.5); LYMPHOCYTES % (AUTO) 12.4 %; MEAN CORPUSCULAR HEMOGLOBIN 30.3 pg (27.0-31.0); MEAN CORPUSCULAR HGB CONC 33.2 g/dL (32.0-36.0); MEAN CORPUSCULAR VOLUME 91.3 fL (80.0-94.0); MEAN PLATELET VOLUME 10.1 fL (7.4-11.4); MONOCYTES # (AUTO) 0.5 10^3/uL (0.0-1.0); MONOCYTES % (AUTO) 4.3 %; NEUTROPHILS # (AUTO) 10.3 10^3/uL (1.5-6.6); NEUTROPHILS % (AUTO) 81.8 %; PLT - PLATELET COUNT 209 10^3/uL (130-450); RED CELL DISTRIBUTION WIDTH 14.9 % (12.0-15.0); WHITE BLOOD COUNT 12.6 x10^3/uL (4.8-10.8)
[2020-05-04] MEDS ORDERED: HYDROmorphone PCA 20MG/100ML IV PRN (14:03)
--- NOTE | 2020-05-04 15:58 | PROVIDER PROGRESS NOTE ---
Assessment/Plan - Problem List (1) Perforated gastric ulcer Assessment/Plan: POD #2. He is on antibiotics as per general surgery. Nutrition and other management has been ordered by the surgeon. Dr. Snow also wants him in the ICU for 1 more day, out of ICU tomorrow. (2) HTN (hypertension) Assessment/Plan: His blood pressure was significantly elevated today, 170s/80s. he is on no meds at home. He was somewhat fidgety and annoyed and there was concern about him having alcohol withdrawal. The patient had denied alcohol use to the Chocolate Packer who did the first consult. Social work called his who spoke frankly that they both have stopped excessive alcohol intake about 3 years ago. He does use occasional marijuana. The said that his "grumpy personality" is his usual. The patient noted that he has had more activity today, this has increased his pa in postop. This could be why his blood pressure is up. Continue with meds for pain control. We will give orders for as needed IV hydralazine for high blood pressures (3) Hyperglycemia Assessment/Plan: Glucoses are somewhat elevated. His A1c came back at 5.9. Continue with every 6 hours glucose checks with empiric insulin coverage (4) Respiratory failure with hypoxia Assessment/Plan: Postop he needed 10 L of oxygen supplemental to maintain sats over 90%. He is now down to 2 L. Suspect this is postop atelectasis and splinting. (5) JN (acute kidney injury) Assessment/Plan: Resolved with iv hydration. (6) Severe sepsis Assessment/Plan: Resolved - Current Meds Current Meds: Current Medications Generic Name Dose Route Start Last Admin Trade Name Freq PRN Reason Stop Dose Admin Heparin Sodium (Porcine) 5,000 unit 05/02/20 21:00 05/04/20 09:06 SUBQ 5,000 unit BID JOSE C Administration Acetaminophen 100 mls @ 400 mls/hr 05/03/20 02:00 05/04/20 15:14 Ofirmev IV Infused Q6H JOSE C Infusion Piperacillin Sod/Tazobactam 100 mls @ 25 mls/hr 05/03/20 03:00 05/04/20 12:16 Sod 3.375 gm/ Sodium Chloride IV 25 mls/hr Q8H JOSE C Administration Fluconazole 100 mls @ 100 mls/hr 05/04/20 09:00 05/04/20 10:00 Diflucan 200 Mg/100 Ml IV Infused DAILY JOSE C Infusion Per Protocol Metoclopramide HCl 10 mg 05/03/20 00:00 05/04/20 12:25 Reglan Inj IVP 10 mg Q6HR JOSE C Administration Pantoprazole Sodium 40 mg 05/03/20 21:00 05/04/20 09:11 Protonix IVP 40 mg BID JOSE C Administration Polyethylene Glycol 17 gm 05/02/20 21:00 05/04/20 09:00 Miralax PO 17 gm BID JOSE C Administration Sodium Chloride 10 ml 05/03/20 01:00 05/04/20 09:11 Normal Saline Flush 0.9% IVP 10 ml 0100,0900,1700 JOSE C Administration Sodium Chloride 10 ml 05/02/20 18:36 05/04/20 07:04 Normal Saline Flush 0.9% IVP 10 ml PRN PRN Administration NEEDED PER PROVIDER ORDERS Sodium Chloride 20 ml 05/02/20 23:21 05/03/20 05:11 Normal Saline Flush 0.9% IVP 20 ml PRN PRN Administration After Blood Draw - Lab Result Fish Bone Diagrams: 05/04/20 11:05 05/04/20 04:00 - Additional Planning My Orders: My Active Orders 05/04/20 10:46 Neuro Check [RC] Routine Routine [id number] INJ [Valium Inj] 5 mg IVP Q30M PRN Subjective - Subjective Patient Reports: Pain Objective Vital Signs: Vital Signs - 24 hr 05/03/20 05/03/20 05/03/20 16:00 16:14 17:00 Temperature 36.8 C Heart Rate [ 78 75 Monitoring electrodes] Respiratory 25 H 24 21 Rate Blood Pressure 122/88 H [Left Brachial artery] Blood Pressure [Right Brachial artery] Blood Pressure 135/75 H 135/82 H [Right Radial artery] O2 Saturation 94 96 05/03/20 05/03/20 05/03/20 18:00 19:00 19:09 Temperature 36.8 C Heart Rate [ 87 84 Monitoring electrodes] Respiratory 22 24 21 Rate Blood Pressure 136/80 H 141/76 H [Left Brachial artery] Blood Pressure [Right Brachial artery] Blood Pressure [Right Radial artery] O2 Saturation 100 92 05/03/20 05/03/20 05/03/20 19:43 20:00 20:56 Temperature Heart Rate [ 93 Monitoring electrodes] Respiratory 23 19 19 Rate Blood Pressure [Left Brachial artery] Blood Pressure 138/81 H [Right Brachial artery] Blood Pressure [Right Radial artery] O2 Saturation 93 94 93 05/03/20 05/03/20 05/03/20 20:58 21:00 22:00 Temperature Heart Rate [ 67 63 Monitoring electrodes] Respiratory 20 20 20 Rate Blood Pressure [Left Brachial artery] Blood Pressure 114/77 131/81 H [Right Brachial artery] Blood Pressure [Right Radial artery] O2 Saturation 92 95 05/03/20 05/03/20 05/03/20 23:00 23:47 23:57 Temperature 37.2 C Heart Rate [ 71 Monitoring electrodes] Respiratory 22 23 Rate Blood Pressure [Left Brachial artery] Blood Pressure 131/80 H [Right Brachial artery] Blood Pressure [Right Radial artery] O2 Saturation 97 05/04/20 05/04/20 05/04/20 00:00 01:00 01:30 Temperature Heart Rate [ 74 78 Monitoring electrodes] Respiratory 22 21 19 Rate Blood Pressure [Left Brachial artery] Blood Pressure 138/88 H 133/83 H [Right Brachial artery] Blood Pressure [Right Radial artery] O2 Saturation 96 94 05/04/20 05/04/20 05/04/20 02:00 03:00 04:00 Temperature 36.8 C Heart Rate [ 93 88 76 Monitoring electrodes] Respiratory 20 20 21 Rate Blood Pressure [Left Brachial artery] Blood Pressure 144/98 H 130/81 H 146/99 H [Right Brachial artery] Blood Pressure [Right Radial artery] O2 Saturation 93 96 95 05/04/20 05/04/20 05/04/20 04:11 05:00 05:46 Temperature Heart Rate [ 78 Monitoring electrodes] Respiratory 20 24 15 Rate Blood Pressure [Left Brachial artery] Blood Pressure 139/99 H [Right Brachial artery] Blood Pressure [Right Radial artery] O2 Saturation 92 94 05/04/20 05/04/20 05/04/20 06:00 07:00 08:00 Temperature 36.8 C Heart Rate [ 77 93 87 Monitoring electrodes] Respiratory 23 22 27 H Rate Blood Pressure [Left Brachial artery] Blood Pressure 149/93 H 152/99 H 151/84 H [Right Brachial artery] Blood Pressure [Right Radial artery] O2 Saturation 91 L 92 95 05/04/20 05/04/20 05/04/20 08:58 09:00 10:00 Temperature Heart Rate [ 87 84 Monitoring electrodes] Respiratory 22 26 H 25 H Rate Blood Pressure [Left Brachial artery] Blood Pressure 170/93 H 151/93 H [Right Brachial artery] Blood Pressure [Right Radial artery] O2 Saturation 96 96 05/04/20 05/04/20 05/04/20 11:00 12:00 13:00 Temperature Heart Rate [ 98 90 88 Monitoring electrodes] Respiratory 18 21 24 Rate Blood Pressure [Left Brachial artery] Blood Pressure 176/100 H 164/106 H 160/141 H [Right Brachial artery] Blood Pressure [Right Radial artery] O2 Saturation 95 93 95 05/04/20 05/04/20 14:00 15:00 Temperature Heart Rate [ 96 80 Monitoring electrodes] Respiratory 95 H 24 Rate Blood Pressure [Left Brachial artery] Blood Pressure 179/105 H 155/94 H [Right Brachial artery] Blood Pressure [Right Radial artery] O2 Saturation 96 94 Oxygen O2 Source Nasal cannula I&O (Last 24 Hrs): Intake and Output Totals x24h 05/02/20 05/03/20 05/04/20 23:59 23:59 23:59 Intake Total 5745.916 4345.500 4784.250 Output Total 586 1035 3155 Balance 5159.916 3310.500 1629.250 General: Alert, Oriented x3 HEENT: Mucous membr. moist/pink, Other (Male pattern baldness.) Neck: Supple, No JVD Neuro: Alert, Non Focal Cardiovascular: Regular rate, No murmurs Respiratory: No respiratory distress, Breath sounds nml Abdomen: Soft, Other (No bowel sounds are heard, no guarding or rebound, drains are in place) Extremities: No edema - Results Results: Laboratory Results WBC 12.6 x10^3/uL (4.8-10.8) H 05/04/20 11:05 RBC 4.00 10^6/uL (4.70-6.10) L 05/04/20 11:05 Hgb 12.1 g/dL (14.0-18.0) L 05/04/20 11:05 Hct 36.5 % (42.0-52.0) L 05/04/20 11:05 MCV 91.3 fL (80.0-94.0) 05/04/20 11:05 MCH 30.3 pg (27.0-31.0) 05/04/20 11:05 MCHC 33.2 g/dL (32.0-36.0) 05/04/20 11:05 RDW 14.9 % (12.0-15.0) 05/04/20 11:05 Plt Count 209 10^3/uL (130-450) 05/04/20 11:05 MPV 10.1 fL (7.4-11.4) 05/04/20 11:05 Neut # (Auto) 10.3 10^3/uL (1.5-6.6) H 05/04/20 11:05 Lymph # (Auto) 1.6 10^3/uL (1.5-3.5) 05/04/20 11:05 [place] # (Auto) 0.5 10^3/uL (0.0-1.0) 05/04/20 11:05 Eos # (Auto) 0.1 10^3/uL (0.0-0.7) 05/04/20 11:05 Baso # (Auto) 0.0 10^3/uL (0.0-0.1) 05/04/20 11:05 Absolute Nucleated RBC 0.00 x10^3/uL 05/04/20 11:05 Total Counted 100 05/02/20 05:45 Band Neuts % (Manual) 0 % (0-10) 05/02/20 05:45 Abnorm Lymph % (Manual) 0 % 05/02/20 05:45 Nucleated RBC % 0.0 /100WBC 05/04/20 11:05 Neutrophils # (Manual) 17.3 10^3/uL (1.5-6.6) H 05/02/20 05:45 Lymphocytes # (Manual) 2.3 10^3/uL (1.5-3.5) 05/02/20 05:45 Monocytes # (Manual) 1.5 10^3/uL (0.0-1.0) H 05/02/20 05:45 Eosinophils # (Manual) 0.0 10^3/uL (0-0.7) 05/02/20 05:45 Basophils # (Manual) 0.0 10^3/uL (0-0.1) 05/02/20 05:45 Differential Comment MANUAL DIFFERENTIAL 05/02/20 05:45 WBC Morphology NORMAL APPEARANCE (NORMAL) 05/02/20 05:45 Platelet Estimate NORMAL (130-450,000) (NORMAL) 05/02/20 05:45 Platelet Morphology NORMAL APPEARANCE (NORMAL) 05/02/20 05:45 RBC Morph Micro Appear NORMAL APPEARANCE (NORMAL) 05/02/20 05:45 Bld Gas Analysis Time 1814 05/03/20 18:02 Sample Site A-LINE 05/03/20 18:02 ABG pH 7.43 (7.35-7.45) 05/03/20 18:02 ABG pCO2 36 mmHg (34-45) 05/03/20 18:02 ABG pO2 62 mmHg (80-100) L 05/03/20 18:02 ABG HCO3 23.6 mmol/L (22.0-26.0) 05/03/20 18:02 ABG Total CO2 24.7 MMOL/L (21.0-29.0) 05/03/20 18:02 ABG O2 Saturation 93 % (94-98) L 05/03/20 18:02 ABG Base Excess -0.3 mmol/L (-2.0-3.0) 05/03/20 18:02 Jasiel Test NOT APPLICABLE 05/03/20 18:02 VBG pH 7.349 (7.31-7.41) 05/04/20 04:00 Ionized Calcium 1.10 mmol/L (1.15-1.33) L 05/04/20 04:00 O2 Delivery Device NASAL CANNULA 05/03/20 18:02 O2 Liters/Min 34.00 LPM 05/03/20 18:02 Sodium 138 mmol/L (135-145) 05/04/20 04:00 Potassium 3.7 mmol/L (3.5-5.0) 05/04/20 04:00 Chloride 107 mmol/L (101-111) 05/04/20 04:00 Carbon Dioxide 26 mmol/L (21-32) 05/04/20 04:00 Anion Gap 5.0 (6-13) L 05/04/20 04:00 BUN 18 mg/dL (6-20) 05/04/20 04:00 Creatinine 0.8 mg/dL (0.6-1.2) 05/04/20 04:00 Estimated GFR (MDRD) 98 (>89) 05/04/20 04:00 Glucose 157 mg/dL (70-100) H 05/04/20 04:00 POC Whole Bld Glucose 156 mg/dL (70 - 100) H 05/04/20 12:24 Glycated Hemoglobin 5.9 % (4.6-6.2) 05/03/20 11:36 Estim Average Glucose 123 (70-100) H 05/03/20 11:36 Calcium 7.6 mg/dL (8.5-10.3) L 05/04/20 04:00 Phosphorus 1.3 mg/dL (2.5-4.6) L 05/04/20 04:00 Magnesium 2.1 mg/dL (1.7-2.8) 05/04/20 04:00 Total Bilirubin 0.5 mg/dL (0.2-1.0) 05/04/20 04:00 AST 64 IU/L (10-42) H 05/04/20 04:00 ALT 78 IU/L (10-60) H 05/04/20 04:00 Alkaline Phosphatase 32 IU/L (42-121) L 05/04/20 04:00 Troponin I High Sens 21.0 ng/L (2.3-19.7) H* 05/02/20 22:45 Total Protein 5.6 g/dL (6.7-8.2) L 05/04/20 04:00 Albumin 2.5 g/dL (3.2-5.5) L 05/04/20 04:00 Globulin 3.1 g/dL (2.1-4.2) 05/04/20 04:00 Albumin/Globulin Ratio 0.8 (1.0-2.2) L 05/04/20 04:00 Prealbumin 7 mg/dL (18-45) L 05/04/20 04:00 Lipase 27 U/L (22-51) 05/02/20 05:45 Urine Color DARK YELLOW 05/02/20 10:47 Urine Clarity CLEAR (CLEAR) 05/02/20 10:47 Urine pH 5.5 PH (5.0-7.5) 05/02/20 10:47 Ur Specific [place] 1.015 (1.002-1.030) 05/02/20 10:47 Urine Protein 100 mg/dL (NEGATIVE) H 05/02/20 10:47 Urine Glucose (UA) NEGATIVE mg/dL (NEGATIVE) 05/02/20 10:47 Urine Ketones NEGATIVE mg/dL (NEGATIVE) 05/02/20 10:47 Urine Occult Blood MODERATE (NEGATIVE) H 05/02/20 10:47 Urine Nitrite NEGATIVE (NEGATIVE) 05/02/20 10:47 Urine Bilirubin NEGATIVE (NEGATIVE) 05/02/20 10:47 Urine Urobilinogen 1 (NORMAL) E.U./dL (NORMAL) 05/02/20 10:47 Ur Leukocyte Esterase NEGATIVE (NEGATIVE) 05/02/20 10:47 Urine RBC 0-5 /HPF (0-5) 05/02/20 10:47 Urine WBC 0-3 /HPF (0-3) 05/02/20 10:47 Ur Squamous Epith Cells MOD Squamous (<= Few) H 05/02/20 10:47 Urine Crystals 3-5 Calcium Oxalate /LPF 05/02/20 10:47 Urine Bacteria Many /HPF (None Seen) H 05/02/20 10:47 Urine Casts >50 Hyaline Casts /LPF6-10 Granular Casts /LPF 05/02/20 10:47 Urine Casts >50 Hyaline Casts /LPF6-10 Granular Casts /LPF 05/02/20 10:47 Ur Microscopic Review INDICATED 05/02/20 10:47 Urine Culture Comments NOT INDICATED 05/02/20 10:47 Nasal Screen MRSA (PCR) NEGATIVE (NEGATIVE) 05/02/20 19:00
[2020-05-04] MEDS: hydrALAZINE INJ 20 MG/ML VIAL IVP PRN (18:40)
[2020-05-05] MEDS: hydrALAZINE INJ 20 MG/ML VIAL IVP PRN ×4 (01:17→19:45)
[2020-05-05] MEDS: SODIUM CHLORIDE FLUSH 0.9% 10 ML SYRINGE IVP PRN ×8 (01:19→19:50)
[2020-05-05] MEDS: ACETAMINOPHEN 1,000 MG/100 ML 100 ML IV SCH ×2 (02:04→10:15)
[2020-05-05] MEDS: PIPERACILLIN/TAZOBACTAM 3.375 GM in SODIUM CHLORIDE 0.9% MINIBAG 100 ML IV SCH ×3 (02:43→18:48)
[2020-05-05 05:36] LABS: BASOPHILS % (AUTO) 0.2 %; EOSINOPHILS # (AUTO) 0.2 10^3/uL (0.0-0.7); EOSINOPHILS % (AUTO) 1.2 %; HGB - HEMOGLOBIN 12.7 g/dL (14.0-18.0); LYMPHOCYTES # (AUTO) 1.6 10^3/uL (1.5-3.5); LYMPHOCYTES % (AUTO) 12.5 %; MEAN CORPUSCULAR HEMOGLOBIN 30.1 pg (27.0-31.0); MEAN CORPUSCULAR HGB CONC 33.5 g/dL (32.0-36.0); MEAN CORPUSCULAR VOLUME 89.8 fL (80.0-94.0); MEAN PLATELET VOLUME 10.2 fL (7.4-11.4); MONOCYTES # (AUTO) 0.6 10^3/uL (0.0-1.0); MONOCYTES % (AUTO) 4.6 %; NEUTROPHILS # (AUTO) 10.3 10^3/uL (1.5-6.6); NEUTROPHILS % (AUTO) 80.4 %; PLT - PLATELET COUNT 216 10^3/uL (130-450); RED BLOOD COUNT 4.22 10^6/uL (4.70-6.10); RED CELL DISTRIBUTION WIDTH 14.7 % (12.0-15.0); VBG PH 7.416 (7.31-7.41); WHITE BLOOD COUNT 12.8 x10^3/uL (4.8-10.8)
[2020-05-05 05:49] LABS: ALBUMIN 2.9 g/dL (3.2-5.5); ALBUMIN/GLOBULIN RATIO 0.8 (1.0-2.2); BILIRUBIN,TOTAL 0.7 mg/dL (0.2-1.0); CALCIUM 8.6 mg/dL (8.5-10.3); CREATININE 0.7 mg/dL (0.6-1.2); MAGNESIUM 1.9 mg/dL (1.7-2.8); PHOSPHORUS 1.9 mg/dL (2.5-4.6); TOTAL PROTEIN 6.7 g/dL (6.7-8.2)
[2020-05-05] MEDS: METOCLOPRAMIDE 10 MG/2 ML VIAL IVP SCH ×3 (06:20→18:43)
[2020-05-05] MEDS: SODIUM CHLORIDE FLUSH 0.9% 10 ML SYRINGE IVP SCH ×5 (06:25→20:35)
[2020-05-05] MEDS ORDERED: METOPROLOL 5 MG/5 ML VIAL IVP STA (08:16)
--- NOTE | 2020-05-05 08:17 | PROVIDER PROGRESS NOTE ---
Subjective - Prog Note Date Prog Note Date: 05/05/20 Prog Note Time: 08:25 - Subjective Pt reports feeling: No change Subjective: he's fidgety again. also spilled his urinal on himself so he's not happy. Denies cp, sob, palpitations but can feel the fast heart rate that started this am. On clear liquids. Nursing reports not emptying bladder with frequent urge to urinate. Which annoys him even more. Current Medications - Current Medications Current Medications: Active Medications Albuterol () 2.5 mg INH Q4HR PRN PRN Reason: Wheezing Diazepam (Valium Inj) 5 mg IVP Q30M PRN; Protocol PRN Reason: CIWA > 8 Heparin Sodium (Beef Lung) () 30 - 50 unit IVP PRN PRN PRN Reason: Central Line Protocol (<24 hr) Heparin Sodium (Porcine) () 5,000 unit SUBQ BID [facility] Last Admin: 05/04/20 21:16 Dose: 5,000 unit Documented by: Hydralazine HCl (Apresoline Inj) 10 mg IVP Q6H PRN PRN Reason: Hypertensive Emergency Last Admin: 05/05/20 06:25 Dose: 10 mg Documented by: Hydromorphone HCl (Dilaudid Erection Shop Supervisor 20mg/100ml) 0 mg IV PRN PRN; Protocol PRN Reason: PAIN Last Admin: 05/04/20 18:43 Dose: 20 mg Documented by: Acetaminophen (Ofirmev) 100 mls @ 400 mls/hr IV Q6H [facility] Last Infusion: 05/05/20 02:25 Dose: Infused Documented by: Piperacillin Sod/Tazobactam (Sod 3.375 gm/ Sodium Chloride) 100 mls @ 25 mls/hr IV Q8H [facility] Last Infusion: 05/05/20 08:14 Dose: Infused Documented by: Fluconazole (Diflucan 200 Mg/100 Ml) 100 mls @ 100 mls/hr IV DAILY [facility] Last Infusion: 05/04/20 10:00 Dose: Infused Documented by: Potassium Phosphate 15 mmol/ (Sodium Chloride) 255 mls @ 63 mls/hr IV ONCE ONE; Protocol Stop: 05/05/20 12:32 Ipratropium [place] (Atrovent) 0.5 mg INH Q6HR PRN PRN Reason: Wheezing Metoclopramide HCl (Reglan Inj) 10 mg IVP Q6HR [facility] Last Admin: 05/05/20 06:20 Dose: 10 mg Documented by: Metoprolol Tartrate (Lopressor Inj) 5 mg IVP ONCE STA Stop: 05/05/20 08:17 Pantoprazole Sodium (Protonix) 40 mg IVP BID [facility] Last Admin: 05/04/20 21:17 Dose: 40 mg Documented by: Polyethylene Glycol (Miralax) 17 gm PO BID [facility] Last Admin: 05/04/20 21:06 Dose: 17 gm Documented by: Sodium Chloride (Normal Saline Flush 0.9%) 10 ml IVP 0100,0900,1700 [facility] Last Admin: 05/05/20 06:25 Dose: 10 ml Documented by: Sodium Chloride (Normal Saline Flush 0.9%) 10 ml IVP PRN PRN PRN Reason: NEEDED PER PROVIDER ORDERS Last Admin: 05/05/20 05:11 Dose: 10 ml Documented by: Sodium Chloride (Normal Saline Flush 0.9%) 20 ml IVP PRN PRN PRN Reason: After Blood Draw Last Admin: 05/05/20 08:03 Dose: 30 ml Documented by: No Known Home Medications 05/03/20 Objective - Vital Signs/Intake & Output Reviewed Vital Signs: Yes Vital Signs: Vital Signs x48h Temp Pulse Resp BP BP BP Pulse Ox 05/05/20 07:30 171/104 H 05/05/20 07:00 136 H 28 H 177/104 H 174/104 H 92 05/05/20 06:45 133 H 179/99 H 05/05/20 06:40 125 H 181/100 H 05/05/20 06:35 120 H 172/96 H 05/05/20 06:31 29 H 05/05/20 06:30 114 H 166/96 H 05/05/20 06:27 114 H 180/106 H 05/05/20 06:25 185/117 H 05/05/20 06:20 104 H 185/117 H 05/05/20 06:00 113 H 31 H 184/104 H 93 05/05/20 05:00 97 25 H 177/96 H 92 05/05/20 04:00 36.6 C 96 22 169/94 H 94 05/05/20 03:00 103 H 23 158/92 H 92 05/05/20 02:00 109 H 21 165/101 H 165/101 H 92 05/05/20 01:17 173/102 H 05/05/20 01:00 88 23 173/102 H 93 Intake & Output: Intake & Output 05/02/20 05/03/20 05/04/20 05/05/20 23:59 23:59 23:59 23:59 Intake Total 5745.916 4345.500 6084.250 1575 Output Total 586 1035 6255 2360 Balance 5159.916 3310.500 -170.750 -785 - Objective General Appearance: positive: Alert, Mild distress Eyes Bilateral: positive: PERRL Neck: positive: No JVD Respiratory: positive: Chest non-tender, Other (mild increase rate with urinating and speaking) Cardiovascular: positive: Regular rate & rhythm, Tachycardia Abdomen: positive: Abnml bowel sounds (hypoactive), Other (PEJ in place, HOMA draining serous bloody fluid). negative: Guarding, Rebound Skin: positive: Warm, Dry. negative: Cyanosis, Pallor Extremities: positive: No pedal edema Neurologic/Psychiatric: positive: Oriented x3, CN's nml (2-12), Motor nml - Lab Results Fish Bones: 05/05/20 05:08 05/05/20 05:08 Other Labs: Lab Results x24hrs 05/05/20 05/05/20 05/05/20 Range/Units 05:15 05:08 05:08 WBC 12.8 H (4.8-10.8) x10^3/uL RBC 4.22 L (4.70-6.10) 10^6/uL Hgb 12.7 L (14.0-18.0) g/dL Hct 37.9 L (42.0-52.0) % MCV 89.8 (80.0-94.0) fL MCH 30.1 (27.0-31.0) pg MCHC 33.5 (32.0-36.0) g/dL RDW 14.7 (12.0-15.0) % Plt Count 216 (130-450) 10^3/uL MPV 10.2 (7.4-11.4) fL Neut # (Auto) 10.3 H (1.5-6.6) 10^3/uL Lymph # (Auto) 1.6 (1.5-3.5) 10^3/uL [place] # (Auto) 0.6 (0.0-1.0) 10^3/uL Eos # (Auto) 0.2 (0.0-0.7) 10^3/uL Baso # (Auto) 0.0 (0.0-0.1) 10^3/uL Absolute Nucleated RBC 0.00 x10^3/uL Nucleated RBC % 0.0 /100WBC VBG pH 7.416 H (7.31-7.41) Ionized Calcium 1.15 (1.15-1.33) mmol/L Sodium (135-145) mmol/L Potassium (3.5-5.0) mmol/L Chloride (101-111) mmol/L Carbon Dioxide (21-32) mmol/L Anion Gap (6-13) BUN (6-20) mg/dL Creatinine (0.6-1.2) mg/dL Estimated GFR (MDRD) (>89) Glucose (70-100) mg/dL POC Whole Bld Glucose 163 H (70 - 100) mg/dL Calcium (8.5-10.3) mg/dL Phosphorus (2.5-4.6) mg/dL Magnesium (1.7-2.8) mg/dL Total Bilirubin (0.2-1.0) mg/dL AST (10-42) IU/L ALT (10-60) IU/L Alkaline Phosphatase (42-121) IU/L Total Protein (6.7-8.2) g/dL Albumin (3.2-5.5) g/dL Globulin (2.1-4.2) g/dL Albumin/Globulin Ratio (1.0-2.2) 05/05/20 05/04/20 05/04/20 Range/Units 05:08 23:49 17:40 WBC (4.8-10.8) x10^3/uL RBC (4.70-6.10) 10^6/uL Hgb (14.0-18.0) g/dL Hct (42.0-52.0) % MCV (80.0-94.0) fL MCH (27.0-31.0) pg MCHC (32.0-36.0) g/dL RDW (12.0-15.0) % Plt Count (130-450) 10^3/uL MPV (7.4-11.4) fL Neut # (Auto) (1.5-6.6) 10^3/uL Lymph # (Auto) (1.5-3.5) 10^3/uL [place] # (Auto) (0.0-1.0) 10^3/uL Eos # (Auto) (0.0-0.7) 10^3/uL Baso # (Auto) (0.0-0.1) 10^3/uL Absolute Nucleated RBC x10^3/uL Nucleated RBC % /100WBC VBG pH (7.31-7.41) Ionized Calcium (1.15-1.33) mmol/L Sodium 139 (135-145) mmol/L Potassium 3.6 (3.5-5.0) mmol/L Chloride 105 (101-111) mmol/L Carbon Dioxide 24 (21-32) mmol/L Anion Gap 10.0 (6-13) BUN 10 (6-20) mg/dL Creatinine 0.7 (0.6-1.2) mg/dL Estimated GFR (MDRD) 115 (>89) Glucose 173 H (70-100) mg/dL POC Whole Bld Glucose 157 H 150 H (70 - 100) mg/dL Calcium 8.6 (8.5-10.3) mg/dL Phosphorus 1.9 L (2.5-4.6) mg/dL Magnesium 1.9 (1.7-2.8) mg/dL Total Bilirubin 0.7 (0.2-1.0) mg/dL AST 29 (10-42) IU/L ALT 62 H (10-60) IU/L Alkaline Phosphatase 55 (42-121) IU/L Total Protein 6.7 (6.7-8.2) g/dL Albumin 2.9 L (3.2-5.5) g/dL Globulin 3.8 (2.1-4.2) g/dL Albumin/Globulin Ratio 0.8 L (1.0-2.2) 05/04/20 05/04/20 Range/Units 12:24 11:05 WBC 12.6 H (4.8-10.8) x10^3/uL RBC 4.00 L (4.70-6.10) 10^6/uL Hgb 12.1 L (14.0-18.0) g/dL Hct 36.5 L (42.0-52.0) % MCV 91.3 (80.0-94.0) fL MCH 30.3 (27.0-31.0) pg MCHC 33.2 (32.0-36.0) g/dL RDW 14.9 (12.0-15.0) % Plt Count 209 (130-450) 10^3/uL MPV 10.1 (7.4-11.4) fL Neut # (Auto) 10.3 H (1.5-6.6) 10^3/uL Lymph # (Auto) 1.6 (1.5-3.5) 10^3/uL [place] # (Auto) 0.5 (0.0-1.0) 10^3/uL Eos # (Auto) 0.1 (0.0-0.7) 10^3/uL Baso # (Auto) 0.0 (0.0-0.1) 10^3/uL Absolute Nucleated RBC 0.00 x10^3/uL Nucleated RBC % 0.0 /100WBC VBG pH (7.31-7.41) Ionized Calcium (1.15-1.33) mmol/L Sodium (135-145) mmol/L Potassium (3.5-5.0) mmol/L Chloride (101-111) mmol/L Carbon Dioxide (21-32) mmol/L Anion Gap (6-13) BUN (6-20) mg/dL Creatinine (0.6-1.2) mg/dL Estimated GFR (MDRD) (>89) Glucose (70-100) mg/dL POC Whole Bld Glucose 156 H (70 - 100) mg/dL Calcium (8.5-10.3) mg/dL Phosphorus (2.5-4.6) mg/dL Magnesium (1.7-2.8) mg/dL Total Bilirubin (0.2-1.0) mg/dL AST (10-42) IU/L ALT (10-60) IU/L Alkaline Phosphatase (42-121) IU/L Total Protein (6.7-8.2) g/dL Albumin (3.2-5.5) g/dL Globulin (2.1-4.2) g/dL Albumin/Globulin Ratio (1.0-2.2) ABX Reporting Has patient been on IV antibiotics over the past 48 hours?: Yes Assessment/Plan - Problem List (1) Sinus tachycardia by electrocardiogram Impression: Started today at change of nursing shift around 7 AM. The patient denies chest pain, denies shortness of breath but on examination he is a little tachypneic. He can feel the fast heart rate but denies palpitations. There is been no change in oxygen requirement. He is still on 2 L nasal cannula and saturating at 93% as he has been the last 48 hours. Plan: EKG shows sinus tachycardia in the 140s. Nonspecific inferolateral ST-T wave changes. Lopressor 5 mg IV push x1 Troponin stat CT pulmonary angiogram for pulmonary embolus (2) Perforated gastric ulcer Assessment/Plan: POD #3. He is on antibiotics as per general surgery. Nutrition and other management has been ordered by the surgeon. Dr. Snow also wanted him in ICU yesterday and maybe changed to med surg today. Will see how he responds to lopressor and results of CTA PEJ may or may not be removed. Plan is for him to get leak challenge and that will determine what to do. 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 Change IV Ofimerv to po tylenol. (3) HTN (hypertension) Assessment/Plan: His blood pressure was significantly elevated yesterday and today 170s/80s. he is on no meds at home. He was somewhat fidgety and annoyed 05/04 and there was concern about him having alcohol withdrawal. The patient had denied alcohol use to the Entry Level Software Developer who did the first consult. Social work called his who spoke frankly that they both have stopped excessive alcohol intake about 3 years ago. He does use occasional marijuana. The said that his "grumpy personality" is his usual. The patient felt more postop pain 05/04 due to increased activity. This could be why his blood pressure is up. Continue with meds for pain control. He is on as needed IV hydralazine for high blood pressures and I have added lopressor today. (4) Hyperglycemia Assessment/Plan: Glucose was 152, 154, 150, 157 yesterday. This morning he is 163. On clear liquids. Political Director service thought that he was on sliding scale insulin. He is now. Will order that this morning. (5) Respiratory failure with hypoxia Assessment/Plan: Postop he needed 10 L of oxygen supplemental to maintain sats over 90%. He is now down to 2 L and is stable in spite of tachycardia. [place] that he had postop atelectasis and splinting. Today stable. Better overall by O2 requirement but still on 2 liters. Slight tachypnea with exertion of speaking or urinating. Will order CXR (6) JN (acute kidney injury) Assessment/Plan: Resolved with iv hydration. (7) Severe sepsis Assessment/Plan: Resolved
[2020-05-05] MEDS ORDERED: POTASSIUM PHOSPHATE 15 MMOL in SODIUM CHLORIDE 0.9% 250 ML IV ONE (08:30)
[2020-05-05] MEDS ORDERED: IOVERSOL 320 100 ML VIAL IVP ONE ×3 (08:39→10:21)
[2020-05-05] MEDS: FLUCONAZOLE 200 MG/100 ML 100 ML IV SCH (09:20)
[2020-05-05] MEDS: HEPARIN 5,000 UNIT/ML VIAL SUBQ SCH ×2 (10:35→20:34)
--- NOTE | 2020-05-05 10:35 | CT Report ---
PROCEDURE: ANGIO CHEST W/WO INDICATIONS: sudden tachy post op patient, on O2 CONTRAST: IV CONTRAST: Optiray 320 ml: 160 PO CONTRAST: *NO PO CONTRAST TECHNIQUE: After the administration of intravenous contrast, 2 mm thick sections acquired from the pulmonary api gris to the posterior costophrenic angles. 3-dimensional maximum intensity projection (MIP) coronal a nd sagittal reformats were then acquired through the thorax. For radiation dose reduction, the follow ing was used: automated exposure control, adjustment of mA and/or kV according to patient size. COMPARISON: Lung bases on CT abdomen and pelvis 05/02/2020. FINDINGS: Image quality: Fair. Cardiac motion artifact. End expiratory image acquisition. Repeat image acquisit ion was obtained. Pulmonary arteries: Pulmonary arteries are normal in size, and demonstrate no intraluminal filling d efects to suggest central pulmonary embolism. Lungs and pleura: New small bilateral pleural effusions. Increased by basilar compressive atelectasis . Moderate emphysematous change. Moderate-sized bleb at the right apex. End expiration image acquisit ion. Lung volumes are decreased. Probable 4 mm pulmonary nodule in the right middle lobe, (22/33). Ce ntral airways appear clear. Mediastinum: Right IJ central venous line with the tip at the lower third of the SVC. Heart size is normal, without pericardial effusion. Coronary artery calcifications. No mediastinal or hilar adenop athy. Thoracic aorta is normal in caliber and enhancement. Esophagus is patulous, without hiatal he rnia. Bones and chest wall: No suspicious bony lesions. Ribs and thoracic spine appear intact throughout. Thyroid gland is unremarkable. No axillary or supraclavicular adenopathy. Bilateral gynecomastia. Abdomen: Drainage the upper abdomen partially visualized. Decreased pneumoperitoneum. Small focus of gas and fluid adjacent to the falciform ligament. Midline incision. IMPRESSION: Image quality is fair despite repeat image acquisition. 1. No central pulmonary embolism. 2. New small bilateral pleural effusions. Increased bibasilar atelectasis. 3. Moderate emphysematous change. Reviewed by: Reji Merlos MD on 05/05/2020 10:34 AM PDT Approved by: Reji Merlos MD on 05/05/2020 10:34 AM PDT Station ID: [id number]
[2020-05-05] MEDS ORDERED: ACETAMINOPHEN 500 MG TABLET PO PRN (10:38)
[2020-05-05] MEDS: PANTOPRAZOLE 40 MG VIAL IVP SCH ×2 (10:41→20:35)
[2020-05-05] MEDS: polyethylene glycoL 3350 17 GM PACKET PO SCH ×2 (11:19→22:19)
[2020-05-05] MEDS: INSULIN ASPART 300 UNIT/3 ML PEN SUBQ SCH ×2 (12:17→18:43)
[2020-05-05] MEDS: SODIUM CHLORIDE 0.9% 500 ML IV PRN (12:26)
[2020-05-05] MEDS: TAMSULOSIN 0.4 MG CAPSULE PO SCH (13:34)
[2020-05-05] MEDS ORDERED: METOPROLOL 5 MG/5 ML VIAL IVP PRN (14:55)
[2020-05-05] MEDS ORDERED: diphenhydrAMINE INJ 50 MG/ML VIAL IVP STA (20:26)
[2020-05-05] MEDS ORDERED: cloNIDine 0.1 MG PATCH TOP SCH (21:00)
[2020-05-05] MEDS: HYDROmorphone 2 MG/ML VIAL IVP PRN (21:09)
[2020-05-05] MEDS: INSULIN REGULAR HUMAN 300 UNIT/3 ML VIAL SUBQ SCH (21:36)
[2020-05-06] MEDS: INSULIN REGULAR HUMAN 300 UNIT/3 ML VIAL SUBQ SCH ×5 (00:34→23:38)
[2020-05-06] MEDS: METOCLOPRAMIDE 10 MG/2 ML VIAL IVP SCH ×5 (00:47→23:42)
[2020-05-06] MEDS: SODIUM CHLORIDE FLUSH 0.9% 10 ML SYRINGE IVP PRN ×5 (01:59→21:05)
[2020-05-06] MEDS: HYDROmorphone 2 MG/ML VIAL IVP PRN ×6 (01:59→21:05)
[2020-05-06] MEDS: PIPERACILLIN/TAZOBACTAM 3.375 GM in SODIUM CHLORIDE 0.9% MINIBAG 100 ML IV SCH ×3 (02:00→19:15)
[2020-05-06 05:43] LABS: BASOPHILS # (AUTO) 0.1 10^3/uL (0.0-0.1); BASOPHILS % (AUTO) 0.5 %; EOSINOPHILS # (AUTO) 0.3 10^3/uL (0.0-0.7); EOSINOPHILS % (AUTO) 3.1 %; HGB - HEMOGLOBIN 11.9 g/dL (14.0-18.0); LYMPHOCYTES # (AUTO) 1.7 10^3/uL (1.5-3.5); MEAN CORPUSCULAR HGB CONC 33.4 g/dL (32.0-36.0); MEAN CORPUSCULAR VOLUME 89.7 fL (80.0-94.0); MEAN PLATELET VOLUME 9.8 fL (7.4-11.4); MONOCYTES # (AUTO) 0.8 10^3/uL (0.0-1.0); MONOCYTES % (AUTO) 8.6 %; NEUTROPHILS # (AUTO) 6.3 10^3/uL (1.5-6.6); NEUTROPHILS % (AUTO) 66.5 %; PLT - PLATELET COUNT 222 10^3/uL (130-450); RED BLOOD COUNT 3.97 10^6/uL (4.70-6.10); RED CELL DISTRIBUTION WIDTH 14.6 % (12.0-15.0); WHITE BLOOD COUNT 9.5 x10^3/uL (4.8-10.8)
[2020-05-06 05:55] LABS: ALBUMIN 2.7 g/dL (3.2-5.5); ALBUMIN/GLOBULIN RATIO 0.8 (1.0-2.2); BILIRUBIN,TOTAL 0.5 mg/dL (0.2-1.0); CALCIUM 8.6 mg/dL (8.5-10.3); CREATININE 0.7 mg/dL (0.6-1.2); MAGNESIUM 1.9 mg/dL (1.7-2.8); PHOSPHORUS 3.2 mg/dL (2.5-4.6); TOTAL PROTEIN 6.1 g/dL (6.7-8.2)
[2020-05-06] MEDS: HEPARIN 5,000 UNIT/ML VIAL SUBQ SCH ×2 (09:10→21:51)
[2020-05-06] MEDS: TAMSULOSIN 0.4 MG CAPSULE PO SCH (09:13)
[2020-05-06] MEDS: SODIUM CHLORIDE FLUSH 0.9% 10 ML SYRINGE IVP SCH ×3 (09:14→23:42)
[2020-05-06] MEDS: PANTOPRAZOLE 40 MG VIAL IVP SCH ×2 (09:14→21:51)
[2020-05-06] MEDS: polyethylene glycoL 3350 17 GM PACKET PO SCH ×2 (09:22→21:51)
[2020-05-06] MEDS: FLUCONAZOLE 200 MG/100 ML 100 ML IV SCH (10:00)
--- NOTE | 2020-05-06 11:42 | PROVIDER PROGRESS NOTE ---
Subjective - Prog Note Date Prog Note Date: 05/06/20 Prog Note Time: 11:40 - Subjective Subjective: Yesterday morning his heart rate would go up to 130. I added Lopressor as needed and heart rate was slowly decreasing to the low 100s. This morning he has been in the 80s and 90s with the highest rate being 110. We also had to address elevated blood pressures. He does not have a history of high blood pressure before coming into the hospital but he never saw physician. My suspicion is that he has untreated hypertension. He is now on hydralazine as needed, clonidine patch, Lopressor as needed. Much better mood today. So grateful to be getting out of the ICU bed and sitting up. Had a bowel movement this morning. He is uncomfortable but pain is controlled. Current Medications - Current Medications Current Medications: Active Medications Acetaminophen (Tylenol) 500 mg PO Q4HR PRN PRN Reason: Pain or Fever > 38C (100.4F) Albuterol () 2.5 mg INH Q4HR PRN PRN Reason: Wheezing Clonidine HCl (Ozzcaqac-Miv-5) 1 patch TOP Q7D [facility] Last Admin: 05/05/20 21:15 Dose: 1 patch Documented by: Diazepam (Valium Inj) 5 mg IVP Q30M PRN; Protocol PRN Reason: CIWA > 8 Heparin Sodium (Beef Lung) () 30 - 50 unit IVP PRN PRN PRN Reason: Central Line Protocol (<24 hr) Heparin Sodium (Porcine) () 5,000 unit SUBQ BID [facility] Last Admin: 05/06/20 09:10 Dose: 5,000 unit Documented by: Hydralazine HCl (Apresoline Inj) 10 mg IVP Q6H PRN PRN Reason: Hypertensive Emergency Last Admin: 05/05/20 19:45 Dose: 10 mg Documented by: Hydromorphone HCl (Dilaudid (Vial)) 1 mg IVP Q2H PRN PRN Reason: PAIN Last Admin: 05/06/20 10:15 Dose: 1 mg Documented by: Piperacillin Sod/Tazobactam (Sod 3.375 gm/ Sodium Chloride) 100 mls @ 25 mls/hr IV Q8H [facility] Last Admin: 05/06/20 11:39 Dose: 25 mls/hr Documented by: Fluconazole (Diflucan 200 Mg/100 Ml) 100 mls @ 100 mls/hr IV DAILY [facility] Last Admin: 05/06/20 10:00 Dose: 100 mls/hr Documented by: Sodium Chloride (Normal Saline 0.9%) 500 mls @ 0 mls/hr IV Q24H PRN PRN Reason: TKO RATE Last Infusion: 05/05/20 18:47 Dose: 20 mls/hr Documented by: Insulin Human Regular (Humulin R) 1 - 9 unit SUBQ Q6HR [facility]; Protocol Last Admin: 05/06/20 05:32 Dose: 1 unit Documented by: Ipratropium Mccune (Atrovent) 0.5 mg INH Q6HR PRN PRN Reason: Wheezing Metoclopramide HCl (Reglan Inj) 10 mg IVP Q6HR [facility] Last Admin: 05/06/20 11:40 Dose: 10 mg Documented by: Metoprolol Tartrate (Lopressor Inj) 5 mg IVP Q6H PRN PRN Reason: Hypertensive Emergency Last Admin: 05/05/20 16:12 Dose: 5 mg Documented by: Pantoprazole Sodium (Protonix) 40 mg IVP BID [facility] Last Admin: 05/06/20 09:14 Dose: 40 mg Documented by: Polyethylene Glycol (Miralax) 17 gm PO BID [facility] Last Admin: 05/06/20 09:22 Dose: Not Given Documented by: Sodium Chloride (Normal Saline Flush 0.9%) 10 ml IVP 0100,0900,1700 [facility] Last Admin: 05/06/20 09:14 Dose: 10 ml Documented by: Sodium Chloride (Normal Saline Flush 0.9%) 10 ml IVP PRN PRN PRN Reason: NEEDED PER PROVIDER ORDERS Last Admin: 05/06/20 06:08 Dose: 10 ml Documented by: Sodium Chloride (Normal Saline Flush 0.9%) 20 ml IVP PRN PRN PRN Reason: After Blood Draw Last Admin: 05/06/20 05:33 Dose: 20 ml Documented by: Tamsulosin HCl (Flomax) 0.4 mg PO DAILY [facility] Last Admin: 05/06/20 09:13 Dose: 0.4 mg Documented by: No Known Home Medications 05/03/20 Objective - Vital Signs/Intake & Output Reviewed Vital Signs: Yes Vital Signs: Vital Signs Temp Pulse Resp BP BP Pulse Ox 05/06/20 11:00 87 15 167/85 H 95 05/06/20 10:00 89 28 H 165/69 H 96 05/06/20 09:00 110 H 22 167/81 H 93 05/06/20 08:00 36.6 C 110 H 22 180/121 H 93 Intake & Output: Intake & Output 05/03/20 05/04/20 05/05/20 05/06/20 23:59 23:59 23:59 23:59 Intake Total 4345.500 6084.250 4339.0 1475 Output Total 1035 6255 4175 1595 Balance 3310.500 -170.750 164.0 -120 - Objective General Appearance: positive: Alert, Mild distress (Incisional pain. But tolerable.), Other (Sitting up in chair.) Eyes Bilateral: positive: PERRL ENT: positive: Pharynx nml Neck: positive: No JVD. negative: Stiff neck, Carotid bruit Respiratory: positive: Chest non-tender, No respiratory distress. negative: Whe ezes, Rales, Rhonchi Cardiovascular: positive: Regular rate & rhythm. negative: Systolic murmur, Gallop/S4, Friction rub Abdomen: positive: No organomegaly, Nml bowel sounds, No distention, Tenderness (At incisional site. Surrounding skin does not have any redness, heat, or drainage. Bandages clean.). negative: Guarding, Rebound Skin: positive: Warm, Dry Extremities: positive: Non-tender, Full ROM, Pedal edema (minimal of ankles) Neurologic/Psychiatric: positive: Oriented x3, CN's nml (2-12), Motor nml - Lab Results Fish Bones: 05/06/20 05:20 05/06/20 05:20 Other Labs: Lab Results x24hrs 05/06/20 05/06/20 05/06/20 Range/Units 05:25 05:20 05:20 WBC 9.5 (4.8-10.8) x10^3/uL RBC 3.97 L (4.70-6.10) 10^6/uL Hgb 11.9 L (14.0-18.0) g/dL Hct 35.6 L (42.0-52.0) % MCV 89.7 (80.0-94.0) fL MCH 30.0 (27.0-31.0) pg MCHC 33.4 (32.0-36.0) g/dL RDW 14.6 (12.0-15.0) % Plt Count 222 (130-450) 10^3/uL MPV 9.8 (7.4-11.4) fL Neut # (Auto) 6.3 (1.5-6.6) 10^3/uL Lymph # (Auto) 1.7 (1.5-3.5) 10^3/uL [place] # (Auto) 0.8 (0.0-1.0) 10^3/uL Eos # (Auto) 0.3 (0.0-0.7) 10^3/uL Baso # (Auto) 0.1 (0.0-0.1) 10^3/uL Absolute Nucleated RBC 0.00 x10^3/uL Nucleated RBC % 0.0 /100WBC Sodium (135-145) mmol/L Potassium (3.5-5.0) mmol/L Chloride (101-111) mmol/L Carbon Dioxide (21-32) mmol/L Anion Gap (6-13) BUN (6-20) mg/dL Creatinine (0.6-1.2) mg/dL Estimated GFR (MDRD) (>89) Glucose (70-100) mg/dL POC Whole Bld Glucose 144 H (70 - 100) mg/dL Calcium (8.5-10.3) mg/dL Phosphorus (2.5-4.6) mg/dL Magnesium (1.7-2.8) mg/dL Total Bilirubin (0.2-1.0) mg/dL AST (10-42) IU/L ALT (10-60) IU/L Alkaline Phosphatase (42-121) IU/L Total Protein (6.7-8.2) g/dL Albumin (3.2-5.5) g/dL Globulin (2.1-4.2) g/dL Albumin/Globulin Ratio (1.0-2.2) Prealbumin 12 L (18-45) mg/dL Ref Lab Test Result 05/06/20 05/06/20 05/05/20 Range/Units 05:20 00:27 21:07 WBC (4.8-10.8) x10^3/uL RBC (4.70-6.10) 10^6/uL Hgb (14.0-18.0) g/dL Hct (42.0-52.0) % MCV (80.0-94.0) fL MCH (27.0-31.0) pg MCHC (32.0-36.0) g/dL RDW (12.0-15.0) % Plt Count (130-450) 10^3/uL MPV (7.4-11.4) fL Neut # (Auto) (1.5-6.6) 10^3/uL Lymph # (Auto) (1.5-3.5) 10^3/uL [place] # (Auto) (0.0-1.0) 10^3/uL Eos # (Auto) (0.0-0.7) 10^3/uL Baso # (Auto) (0.0-0.1) 10^3/uL Absolute Nucleated RBC x10^3/uL Nucleated RBC % /100WBC Sodium 137 (135-145) mmol/L Potassium 3.6 (3.5-5.0) mmol/L Chloride 105 (101-111) mmol/L Carbon Dioxide 25 (21-32) mmol/L Anion Gap 7.0 (6-13) BUN 14 (6-20) mg/dL Creatinine 0.7 (0.6-1.2) mg/dL Estimated GFR (MDRD) 115 (>89) Glucose 155 H (70-100) mg/dL POC Whole Bld Glucose 164 H 138 H (70 - 100) mg/dL Calcium 8.6 (8.5-10.3) mg/dL Phosphorus 3.2 (2.5-4.6) mg/dL Magnesium 1.9 (1.7-2.8) mg/dL Total Bilirubin 0.5 (0.2-1.0) mg/dL AST 22 (10-42) IU/L ALT 46 (10-60) IU/L Alkaline Phosphatase 63 (42-121) IU/L Total Protein 6.1 L (6.7-8.2) g/dL Albumin 2.7 L (3.2-5.5) g/dL Globulin 3.4 (2.1-4.2) g/dL Albumin/Globulin Ratio 0.8 L (1.0-2.2) Prealbumin (18-45) mg/dL Ref Lab Test Result 05/05/20 05/05/20 Range/Units 16:38 05:03 WBC (4.8-10.8) x10^3/uL RBC (4.70-6.10) 10^6/uL Hgb (14.0-18.0) g/dL Hct (42.0-52.0) % MCV (80.0-94.0) fL MCH (27.0-31.0) pg MCHC (32.0-36.0) g/dL RDW (12.0-15.0) % Plt Count (130-450) 10^3/uL MPV (7.4-11.4) fL Neut # (Auto) (1.5-6.6) 10^3/uL Lymph # (Auto) (1.5-3.5) 10^3/uL [place] # (Auto) (0.0-1.0) 10^3/uL Eos # (Auto) (0.0-0.7) 10^3/uL Baso # (Auto) (0.0-0.1) 10^3/uL Absolute Nucleated RBC x10^3/uL Nucleated RBC % /100WBC Sodium (135-145) mmol/L Potassium (3.5-5.0) mmol/L Chloride (101-111) mmol/L Carbon Dioxide (21-32) mmol/L Anion Gap (6-13) BUN (6-20) mg/dL Creatinine (0.6-1.2) mg/dL Estimated GFR (MDRD) (>89) Glucose (70-100) mg/dL POC Whole Bld Glucose 152 H (70 - 100) mg/dL Calcium (8.5-10.3) mg/dL Phosphorus (2.5-4.6) mg/dL Magnesium (1.7-2.8) mg/dL Total Bilirubin (0.2-1.0) mg/dL AST (10-42) IU/L ALT (10-60) IU/L Alkaline Phosphatase (42-121) IU/L Total Protein (6.7-8.2) g/dL Albumin (3.2-5.5) g/dL Globulin (2.1-4.2) g/dL Albumin/Globulin Ratio (1.0-2.2) Prealbumin (18-45) mg/dL Ref Lab Test Result REPORT Assessment/Plan - Problem List (1) Sinus tachycardia by electrocardiogram Impression: Started 05/05 at change of nursing shift around 7 AM. The patient denies chest pain, denies shortness of breath but on examination he is a little tachypneic. He could feel the fast heart rate but denies palpitations. There was no change in oxygen requirement. He was still on 2 L nasal cannula and saturating at 93% as he has been the last 48 hours. I evaluated him with an EKG that showed sinus tachycardia. Nonspecific inferolateral ST-T wave changes. Troponin was high. I then use Lopressor 5 mg every 6 hours as needed to control heart rate. CT pulmonary angiogram was negative for pulmonary embolus. Right now rate is controlled. Other than fluid shifts in a postoperative patient, and untreated hypertension, especially in a patient with anxiety, no explanation for the tachycardia. Plan: Will transition to p.o. metoprolol. (2) Perforated gastric ulcer Assessment/Plan: POD #4. He is on antibiotics as per general surgery.Today is day 4. Single agent Zosyn. Nutrition and other management has been ordered by the surgeon. Kept in ICU yesterday because of the unexpected tachycardia. That is now resolved. PEJ may or may not be removed. Plan is for him to get leak challenge Tomorrow and that will determine what to do. If all goes well, HOMA drains and PEJ removed if there is no leak. Then start to feed regular diet. Since he was not using much of [employer], I changed to IVP prn 05/05 to avoid med waste. Change IV Ofimerv to po tylenol as well (3) HTN (hypertension) Assessment/Plan: His blood pressure Has been normal or elevated since he has been admitted. Once he was more awake, blood pressure was elevated for close to 48 hours. 170s/80s. he is on no meds at home. He was somewhat fidgety and annoyed 05/04 and there was concern about him having alcohol withdrawal. The patient had denied alcohol use to the Access Rn who did the first consult. Social work called his who spoke frankly that they both have stopped excessive alcohol intake about 3 years ago. He does use occasional marijuana. The said that his "grumpy personality" is his usual. The patient felt more postop pain 05/04 due to increased activity. This could be why his blood pressure is up. Continue with meds for pain control. May 04 hydralazine PRN added. May 05 IV Lopressor PRN added. Clonidine patch added as well that day. Plan: I will start to transition to p.o. meds once he is allowed food.I have let him know that he will most likely will go home on at least 2 blood pressure medicines. (4) Hyperglycemia Assessment/Plan: May 05 he was 163, 152, 138, then I added sliding scale insulin. Today he is 164, 144, 153 Plan: No change in sliding scale insulin at this time (5) Respiratory failure with hypoxia Assessment/Plan: Postop he needed 10 L of oxygen supplemental to maintain sats over 90%. By 05/05 he was down to 2 L and is stable in spite of tachycardia. [place] that he had postop atelectasis and splinting. Yesterday's chest x-ray with CT pulmonary angiogram showed new small bilateral pleural effusions. Increased bibasilar compressive atelectasis. Moderate emphysematous changes. Moderate sized bleb at the right apex. Lung volumes decreased due to that. Probable 4 mm pulmonary nodule in the right middle lobe. Today he is much improved. On room air he is 93 to 96% saturated. He is also sitting up which will help the compression atelectasis. Plan: Continue to encourage sitting up. Pulmonary nodule discussed and he will need follow-up CT in 3 to 6 months. (6) JN (acute kidney injury) Assessment/Plan: Resolved with iv hydration. (7) Severe sepsis Assessment/Plan: Resolved
--- NOTE | 2020-05-06 13:13 | PROVIDER PROGRESS NOTE ---
Subjective - Prog Note Date Prog Note Date: 05/06/20 Prog Note Time: 13:10 - Subjective Pt reports feeling: Improved Subjective: Ady reports he is feeling ok. He thinks his pain may be a little better. Reports he is sleeping ok. Unsure if he has passed flatus. He had a bowel movement. Current Medications - Current Medications Current Medications: Active Medications Acetaminophen (Tylenol) 500 mg PO Q4HR PRN PRN Reason: Pain or Fever > 38C (100.4F) Albuterol () 2.5 mg INH Q4HR PRN PRN Reason: Wheezing Clonidine HCl (Gfzzqqyy-Hhi-1) 1 patch TOP Q7D [facility] Last Admin: 05/05/20 21:15 Dose: 1 patch Documented by: Diazepam (Valium Inj) 5 mg IVP Q30M PRN; Protocol PRN Reason: CIWA > 8 Heparin Sodium (Beef Lung) () 30 - 50 unit IVP PRN PRN PRN Reason: Central Line Protocol (<24 hr) Heparin Sodium (Porcine) () 5,000 unit SUBQ BID [facility] Last Admin: 05/06/20 09:10 Dose: 5,000 unit Documented by: Hydralazine HCl (Apresoline Inj) 10 mg IVP Q6H PRN PRN Reason: Hypertensive Emergency Last Admin: 05/05/20 19:45 Dose: 10 mg Documented by: Hydromorphone HCl (Dilaudid (Vial)) 1 mg IVP Q2H PRN PRN Reason: PAIN Last Admin: 05/06/20 10:15 Dose: 1 mg Documented by: Piperacillin Sod/Tazobactam (Sod 3.375 gm/ Sodium Chloride) 100 mls @ 25 mls/hr IV Q8H [facility] Last Admin: 05/06/20 11:39 Dose: 25 mls/hr Documented by: Fluconazole (Diflucan 200 Mg/100 Ml) 100 mls @ 100 mls/hr IV DAILY [facility] Last Infusion: 05/06/20 11:00 Dose: Infused Documented by: Sodium Chloride (Normal Saline 0.9%) 500 mls @ 0 mls/hr IV Q24H PRN PRN Reason: TKO RATE Last Infusion: 05/05/20 18:47 Dose: 20 mls/hr Documented by: Insulin Human Regular (Humulin R) 1 - 9 unit SUBQ Q6HR [facility]; Protocol Last Admin: 05/06/20 11:45 Dose: 1 unit Documented by: Ipratropium Nerinx (Atrovent) 0.5 mg INH Q6HR PRN PRN Reason: Wheezing Metoclopramide HCl (Reglan Inj) 10 mg IVP Q6HR [facility] Last Admin: 05/06/20 11:40 Dose: 10 mg Documented by: Metoprolol Tartrate (Lopressor Inj) 5 mg IVP Q6H PRN PRN Reason: Hypertensive Emergency Last Admin: 05/05/20 16:12 Dose: 5 mg Documented by: Pantoprazole Sodium (Protonix) 40 mg IVP BID [facility] Last Admin: 05/06/20 09:14 Dose: 40 mg Documented by: Polyethylene Glycol (Miralax) 17 gm PO BID [facility] Last Admin: 05/06/20 09:22 Dose: Not Given Documented by: Sodium Chloride (Normal Saline Flush 0.9%) 10 ml IVP 0100,0900,1700 [facility] Last Admin: 05/06/20 09:14 Dose: 10 ml Documented by: Sodium Chloride (Normal Saline Flush 0.9%) 10 ml IVP PRN PRN PRN Reason: NEEDED PER PROVIDER ORDERS Last Admin: 05/06/20 06:08 Dose: 10 ml Documented by: Sodium Chloride (Normal Saline Flush 0.9%) 20 ml IVP PRN PRN PRN Reason: After Blood Draw Last Admin: 05/06/20 05:33 Dose: 20 ml Documented by: Tamsulosin HCl (Flomax) 0.4 mg PO DAILY [facility] Last Admin: 05/06/20 09:13 Dose: 0.4 mg Documented by: No Known Home Medications 05/03/20 Objective - Vital Signs/Intake & Output Reviewed Vital Signs: Yes Vital Signs: Vital Signs x48h Temp Pulse Resp BP BP BP Pulse Ox 05/06/20 12:00 36.6 C 117 H 23 92 05/06/20 11:00 87 15 167/85 H 95 05/06/20 10:00 89 28 H 165/69 H 96 05/06/20 09:00 110 H 22 167/81 H 93 05/06/20 08:00 36.6 C 110 H 22 180/121 H 93 05/06/20 07:00 85 22 162/81 H 96 05/06/20 06:00 36.6 C 81 20 162/84 H 94 Intake & Output: Intake & Output 05/03/20 05/04/20 05/05/20 05/06/20 23:59 23:59 23:59 23:59 Intake Total 4345.500 6084.250 4339.0 1575 Output Total 1035 6255 4175 1970 Balance 3310.500 -170.750 164.0 -395 - Objective General Appearance: positive: No acute distress, Alert Eyes Bilateral: positive: Normal inspection, PERRL Neck: positive: Nml inspection Respiratory: positive: No respiratory distress, Breath sounds nml Cardiovascular: positive: Tachycardia Abdomen: positive: Nml bowel sounds, No distention, Tenderness Skin: positive: Color nml Neurologic/Psychiatric: positive: Oriented x3 - Lab Results Fish Bones: 05/06/20 05:20 05/06/20 05:20 Other Labs: Lab Results x24hrs 05/06/20 05/06/20 05/06/20 Range/Units 11:38 05:25 05:20 WBC (4.8-10.8) x10^3/uL RBC (4.70-6.10) 10^6/uL Hgb (14.0-18.0) g/dL Hct (42.0-52.0) % MCV (80.0-94.0) fL MCH (27.0-31.0) pg MCHC (32.0-36.0) g/dL RDW (12.0-15.0) % Plt Count (130-450) 10^3/uL MPV (7.4-11.4) fL Neut # (Auto) (1.5-6.6) 10^3/uL Lymph # (Auto) (1.5-3.5) 10^3/uL [place] # (Auto) (0.0-1.0) 10^3/uL Eos # (Auto) (0.0-0.7) 10^3/uL Baso # (Auto) (0.0-0.1) 10^3/uL Absolute Nucleated RBC x10^3/uL Nucleated RBC % /100WBC Sodium (135-145) mmol/L Potassium (3.5-5.0) mmol/L Chloride (101-111) mmol/L Carbon Dioxide (21-32) mmol/L Anion Gap (6-13) BUN (6-20) mg/dL Creatinine (0.6-1.2) mg/dL Estimated GFR (MDRD) (>89) Glucose (70-100) mg/dL POC Whole Bld Glucose 153 H 144 H (70 - 100) mg/dL Calcium (8.5-10.3) mg/dL Phosphorus (2.5-4.6) mg/dL Magnesium (1.7-2.8) mg/dL Total Bilirubin (0.2-1.0) mg/dL AST (10-42) IU/L ALT (10-60) IU/L Alkaline Phosphatase (42-121) IU/L Total Protein (6.7-8.2) g/dL Albumin (3.2-5.5) g/dL Globulin (2.1-4.2) g/dL Albumin/Globulin Ratio (1.0-2.2) Prealbumin 12 L (18-45) mg/dL Ref Lab Test Result 05/06/20 05/06/20 05/06/20 Range/Units 05:20 05:20 00:27 WBC 9.5 (4.8-10.8) x10^3/uL RBC 3.97 L (4.70-6.10) 10^6/uL Hgb 11.9 L (14.0-18.0) g/dL Hct 35.6 L (42.0-52.0) % MCV 89.7 (80.0-94.0) fL MCH 30.0 (27.0-31.0) pg MCHC 33.4 (32.0-36.0) g/dL RDW 14.6 (12.0-15.0) % Plt Count 222 (130-450) 10^3/uL MPV 9.8 (7.4-11.4) fL Neut # (Auto) 6.3 (1.5-6.6) 10^3/uL Lymph # (Auto) 1.7 (1.5-3.5) 10^3/uL [place] # (Auto) 0.8 (0.0-1.0) 10^3/uL Eos # (Auto) 0.3 (0.0-0.7) 10^3/uL Baso # (Auto) 0.1 (0.0-0.1) 10^3/uL Absolute Nucleated RBC 0.00 x10^3/uL Nucleated RBC % 0.0 /100WBC Sodium 137 (135-145) mmol/L Potassium 3.6 (3.5-5.0) mmol/L Chloride 105 (101-111) mmol/L Carbon Dioxide 25 (21-32) mmol/L Anion Gap 7.0 (6-13) BUN 14 (6-20) mg/dL Creatinine 0.7 (0.6-1.2) mg/dL Estimated GFR (MDRD) 115 (>89) Glucose 155 H (70-100) mg/dL POC Whole Bld Glucose 164 H (70 - 100) mg/dL Calcium 8.6 (8.5-10.3) mg/dL Phosphorus 3.2 (2.5-4.6) mg/dL Magnesium 1.9 (1.7-2.8) mg/dL Total Bilirubin 0.5 (0.2-1.0) mg/dL AST 22 (10-42) IU/L ALT 46 (10-60) IU/L Alkaline Phosphatase 63 (42-121) IU/L Total Protein 6.1 L (6.7-8.2) g/dL Albumin 2.7 L (3.2-5.5) g/dL Globulin 3.4 (2.1-4.2) g/dL Albumin/Globulin Ratio 0.8 L (1.0-2.2) Prealbumin (18-45) mg/dL Ref Lab Test Result 05/05/20 05/05/20 05/05/20 Range/Units 21:07 16:38 05:03 WBC (4.8-10.8) x10^3/uL RBC (4.70-6.10) 10^6/uL Hgb (14.0-18.0) g/dL Hct (42.0-52.0) % MCV (80.0-94.0) fL MCH (27.0-31.0) pg MCHC (32.0-36.0) g/dL RDW (12.0-15.0) % Plt Count (130-450) 10^3/uL MPV (7.4-11.4) fL Neut # (Auto) (1.5-6.6) 10^3/uL Lymph # (Auto) (1.5-3.5) 10^3/uL [place] # (Auto) (0.0-1.0) 10^3/uL Eos # (Auto) (0.0-0.7) 10^3/uL Baso # (Auto) (0.0-0.1) 10^3/uL Absolute Nucleated RBC x10^3/uL Nucleated RBC % /100WBC Sodium (135-145) mmol/L Potassium (3.5-5.0) mmol/L Chloride (101-111) mmol/L Carbon Dioxide (21-32) mmol/L Anion Gap (6-13) BUN (6-20) mg/dL Creatinine (0.6-1.2) mg/dL Estimated GFR (MDRD) (>89) Glucose (70-100) mg/dL POC Whole Bld Glucose 138 H 152 H (70 - 100) mg/dL Calcium (8.5-10.3) mg/dL Phosphorus (2.5-4.6) mg/dL Magnesium (1.7-2.8) mg/dL Total Bilirubin (0.2-1.0) mg/dL AST (10-42) IU/L ALT (10-60) IU/L Alkaline Phosphatase (42-121) IU/L Total Protein (6.7-8.2) g/dL Albumin (3.2-5.5) g/dL Globulin (2.1-4.2) g/dL Albumin/Globulin Ratio (1.0-2.2) Prealbumin (18-45) mg/dL Ref Lab Test Result REPORT - Other Results/Comments Other Results/Comments: Drainage is much less bloody. Serous. ABX Reporting Has patient been on IV antibiotics over the past 48 hours?: Yes Assessment/Plan - Problem List (1) Perforated duodenal ulcer Impression: Improving - Will try gastrograffin swallow tomorrow to evaluate for leak. G tube to gravity drain. Continue tube feeds
[2020-05-06] MEDS: SODIUM CHLORIDE 0.9% 1,000 ML IV SCH (21:42)
[2020-05-06] MEDS: SODIUM CHLORIDE 0.9% 500 ML IV PRN (23:42)
[2020-05-07] MEDS: HYDROmorphone 2 MG/ML VIAL IVP PRN ×3 (02:44→08:16)
[2020-05-07] MEDS: PIPERACILLIN/TAZOBACTAM 3.375 GM in SODIUM CHLORIDE 0.9% MINIBAG 100 ML IV SCH ×3 (02:44→19:30)
[2020-05-07] MEDS: SODIUM CHLORIDE FLUSH 0.9% 10 ML SYRINGE IVP PRN ×3 (02:44→08:20)
[2020-05-07] MEDS: METOCLOPRAMIDE 10 MG/2 ML VIAL IVP SCH ×4 (05:49→23:55)
[2020-05-07 06:36] LABS: CALCIUM 8.5 mg/dL (8.5-10.3); PHOSPHORUS 4.4 mg/dL (2.5-4.6)
[2020-05-07] MEDS: INSULIN REGULAR HUMAN 300 UNIT/3 ML VIAL SUBQ SCH ×4 (06:43→23:15)
[2020-05-07] MEDS: FLUCONAZOLE 200 MG/100 ML 100 ML IV SCH (08:19)
[2020-05-07] MEDS: SODIUM CHLORIDE 0.9% 1,000 ML IV SCH (08:19)
[2020-05-07] MEDS: PANTOPRAZOLE 40 MG VIAL IVP SCH ×2 (08:20→21:04)
[2020-05-07] MEDS: HEPARIN 5,000 UNIT/ML VIAL SUBQ SCH ×2 (08:20→21:03)
[2020-05-07] MEDS: TAMSULOSIN 0.4 MG CAPSULE PO SCH (08:20)
[2020-05-07] MEDS: SODIUM CHLORIDE FLUSH 0.9% 10 ML SYRINGE IVP SCH ×3 (08:20→23:55)
--- NOTE | 2020-05-07 09:54 | XRAY Report ---
PROCEDURE: No-Charge 1V Abdomen INDICATIONS: Gastrografin challenge; assessment for leak status post pyloric ulcer repair TECHNIQUE: 1 view of the abdomen were acquired. COMPARISON: No pertinent prior study FINDINGS: Surgical drains are present in the upper abdomen on the right and the left adjacent to the stomach. T here is no definite radiographic evidence of orally administered contrast outside the gastric or duod enal lumen, although it should be noted that CT is be performed modality, especially in a patient of this size where body habitus limits the sensitivity of radiographs. IMPRESSION: Limited radiographic study for the provided indication of leak assessment on patient with large body habitus. No plain radiographic evidence of leak. CT would be recommended for further evaluation if th ere is high clinical suspicion for a leak. Reviewed by: Vikas Rivera MD on 05/07/2020 9:53 AM PDT Approved by: Vikas Rivera MD on 05/07/2020 9:53 AM PDT Station ID: [id number]
[2020-05-07] MEDS ORDERED: DIATR MEGLU/DIATRIZOATE SODIUM 120 ML BOTTLE PO ONE (09:55)
--- NOTE | 2020-05-07 09:55 | XRAY Report ---
PROCEDURE: SBFT Challenge Panel INDICATIONS: Assessment for leak status post pyloric ulcer repair CONTRAST: Orally administered Gastrografin COMPARISON: No pertinent prior study FINDINGS: Surgical drains are present in the upper abdomen on the right and the left adjacent to the stomach. T here is no definite radiographic evidence of orally administered contrast outside the gastric or duod enal lumen, although it should be noted that CT is be performed modality, especially in a patient of this size where body habitus limits the sensitivity of radiographs. IMPRESSION: Limited radiographic study for the provided indication of leak assessment on patient with large body habitus. No plain radiographic evidence of leak. CT would be recommended for further evaluation if th ere is high clinical suspicion for a leak. Reviewed by: Vikas Rivera MD on 05/07/2020 9:53 AM PDT Approved by: Vikas Rivera MD on 05/07/2020 9:53 AM PDT Station ID: [id number]
--- NOTE | 2020-05-07 10:18 | XRAY Report ---
PROCEDURE: No-Charge 1V Abdomen INDICATIONS: Gastrografin challenge to assess for leak TECHNIQUE: 1 view of the abdomen were acquired. COMPARISON: Same day radiographic studies. FINDINGS: Orally administered contrast has progressed into the proximal and distal small bowel. There remains n o plain radiographic evidence of leak, again within the previously described limitations related to b devendra habitus and limited sensitivity of plain radiography. IMPRESSION: No plain radiographic evidence of leak. CT is again recommended if there is high clinica l suspicion for leak. Reviewed by: Vikas Rivera MD on 05/07/2020 10:16 AM PDT Approved by: Vikas Rivera MD on 05/07/2020 10:16 AM PDT Station ID: [id number]
[2020-05-07] MEDS: polyethylene glycoL 3350 17 GM PACKET PO SCH ×2 (10:38→21:04)
[2020-05-07] MEDS: HYDROmorphone 1 MG/ML CARPUJECT IVP PRN ×5 (11:09→23:55)
--- NOTE | 2020-05-07 12:00 | PROVIDER PROGRESS NOTE ---
Subjective - Prog Note Date Prog Note Date: 05/07/20 Prog Note Time: 12:03 - Subjective Pt reports feeling: Improved Subjective: Transferred out of ICU yesterday and has been on MedSurg. He is sitting up in a chair, comfortable. Does have occasional discomfort with the incision site and will grimace with pain but he says overall he is feeling so much better. Main concern was urination. Peeing all the time. The Flomax has helped with the sensation of urinary retention. He is continued to have bowel movements and flatus. No chest pain, no cough. Current Medications - Current Medications Current Medications: Active Medications Acetaminophen (Tylenol) 500 mg PO Q4HR PRN PRN Reason: Pain or Fever > 38C (100.4F) Last Admin: 05/07/20 02:02 Dose: 500 mg Documented by: Albuterol () 2.5 mg INH Q4HR PRN PRN Reason: Wheezing Diazepam (Valium Inj) 5 mg IVP Q30M PRN; Protocol PRN Reason: CIWA > 8 Heparin Sodium (Beef Lung) () 30 - 50 unit IVP PRN PRN PRN Reason: Central Line Protocol (<24 hr) Heparin Sodium (Porcine) () 5,000 unit SUBQ BID [facility] Last Admin: 05/07/20 08:20 Dose: 5,000 unit Documented by: Hydralazine HCl (Apresoline Inj) 10 mg IVP Q6H PRN PRN Reason: Hypertensive Emergency Last Admin: 05/05/20 19:45 Dose: 10 mg Documented by: Hydromorphone HCl (Dilaudid Inj Carp) 1 mg IVP Q2H PRN PRN Reason: PAIN Last Admin: 05/07/20 11:09 Dose: 1 mg Documented by: Piperacillin Sod/Tazobactam (Sod 3.375 gm/ Sodium Chloride) 100 mls @ 25 mls/hr IV Q8H [facility] Last Admin: 05/07/20 11:14 Dose: 25 mls/hr Documented by: Fluconazole (Diflucan 200 Mg/100 Ml) 100 mls @ 100 mls/hr IV DAILY [facility] Last Admin: 05/07/20 08:19 Dose: 100 mls/hr Documented by: Sodium Chloride (Normal Saline 0.9%) 500 mls @ 0 mls/hr IV Q24H PRN PRN Reason: TKO RATE Last Admin: 05/06/20 23:42 Dose: 20 mls/hr Documented by: Sodium Chloride (Normal Saline 0.9%) 1,000 mls @ 100 mls/hr IV .Q10H [facility] Last Admin: 05/07/20 08:19 Dose: 100 mls/hr Documented by: Insulin Human Regular (Humulin R) 1 - 9 unit SUBQ Q6HR [facility]; Protocol Last Admin: 05/07/20 06:43 Dose: Not Given Documented by: Ipratropium [place] (Atrovent) 0.5 mg INH Q6HR PRN PRN Reason: Wheezing Losartan Potassium (Cozaar) 50 mg PO DAILY [facility] Metoclopramide HCl (Reglan Inj) 10 mg IVP Q6HR [facility] Last Admin: 05/07/20 05:49 Dose: 10 mg Documented by: Metoprolol Tartrate (Lopressor Inj) 5 mg IVP Q6H PRN PRN Reason: Hypertensive Emergency Last Admin: 05/05/20 16:12 Dose: 5 mg Documented by: Metoprolol Tartrate (Lopressor) 25 mg PO BID [facility] Pantoprazole Sodium (Protonix) 40 mg IVP BID [facility] Last Admin: 05/07/20 08:20 Dose: 40 mg Documented by: Polyethylene Glycol (Miralax) 17 gm PO BID [facility] Last Admin: 05/07/20 10:38 Dose: Not Given Documented by: Sodium Chloride (Normal Saline Flush 0.9%) 10 ml IVP 0100,0900,1700 [facility] Last Admin: 05/07/20 08:20 Dose: 10 ml Documented by: Sodium Chloride (Normal Saline Flush 0.9%) 10 ml IVP PRN PRN PRN Reason: NEEDED PER PROVIDER ORDERS Last Admin: 05/07/20 08:20 Dose: 10 ml Documented by: Sodium Chloride (Normal Saline Flush 0.9%) 20 ml IVP PRN PRN PRN Reason: After Blood Draw Last Admin: 05/07/20 05:49 Dose: 20 ml Documented by: Tamsulosin HCl (Flomax) 0.4 mg PO DAILY [facility] Last Admin: 05/07/20 08:20 Dose: 0.4 mg Documented by: No Known Home Medications 05/03/20 Objective - Vital Signs/Intake & Output Reviewed Vital Signs: Yes Vital Signs: Vital Signs x48h Temp Pulse Pulse Resp BP BP Pulse Ox 05/07/20 10:17 95 14 05/07/20 07:55 36.9 C 104 H 14 149/89 H 94 05/07/20 04:50 36.9 C 98 18 133/76 H 95 Intake & Output: Intake & Output 05/04/20 05/05/20 05/06/20 05/07/20 23:59 23:59 23:59 23:59 Intake Total 6084.250 4339.0 4979 1076.667 Output Total 6255 4175 4150 1790 Balance -170.750 164.0 829 -713.333 - Objective General Appearance: positive: No acute distress, Alert Eyes Bilateral: positive: PERRL ENT: positive: Pharynx nml, No signs of dehydration Neck: positive: No JVD. negative: Stiff neck Respiratory: positive: Chest non-tender. negative: Wheezes, Rales, Rhonchi Cardiovascular: positive: Regular rate & rhythm. negative: Gallop/S4, Friction rub Abdomen: positive: No organomegaly, Nml bowel sounds, No distention, Tenderness. negative: Guarding, Rebound Skin: positive: Warm, Dry Extremities: positive: Non-tender, Full ROM, No pedal edema Neurologic/Psychiatric: positive: Oriented x3, CN's nml (2-12), Motor nml - Lab Results Fish Bones: 05/06/20 05:20 05/06/20 05:20 Other Labs: Lab Results x24hrs 05/07/20 05/07/20 05/07/20 Range/Units 11:50 06:15 05:22 POC Whole Bld Glucose 91 110 H (70 - 100) mg/dL Calcium 8.5 (8.5-10.3) mg/dL Phosphorus 4.4 (2.5-4.6) mg/dL Magnesium 2.0 (1.7-2.8) mg/dL 05/06/20 05/06/20 Range/Units 23:37 18:03 POC Whole Bld Glucose 97 101 H (70 - 100) mg/dL Calcium (8.5-10.3) mg/dL Phosphorus (2.5-4.6) mg/dL Magnesium (1.7-2.8) mg/dL ABX Reporting Has patient been on IV antibiotics over the past 48 hours?: Yes Assessment/Plan - Problem List (1) Perforated gastric ulcer Impression: POD #5. He is on antibiotics as per general surgery.Today is day 5. Single agent Zosyn. We do not have fluoroscopy and as such we could not do an upper GI with small bowel follow-through so we opted to do an upper GI with Gastrografin and then serial films. 3 sequential films have shown no leak. They are recommending a possible CT since plain film is limited. However general surgery feels confident in moving forward with advancing his diet. Plan: Start regular diet HOMA and PEJ's may be pulled this afternoon. If he does well, no fever, no abdominal pain, discharge tomorrow He is working with discharge planning about where he is going to go. He will be going home with a wound VAC and need home health. He is currently living in a hotel in [place] because he is working on [employer] for a year and a half. His hometown is [place]. At this time the tentative plan is to go home to [place], home health, wound VAC, and establish himself with a PCP since he does not have one. (2) HTN (hypertension) Assessment/Plan: His blood pressure Has been normal or elevated since he has been admitted. Once he was more awake, blood pressure was elevated for close to 48 hours. 170s/80s. he is on no meds at home. He was somewhat fidgety and annoyed 05/04 and there was concern about him having alcohol withdrawal. The patient had denied alcohol use to the [employer] who did the first consult. Social work called his who spoke frankly that they both have stopped excessive alcohol intake about 3 years ago. He does use occasional marijuana. The said that his "grumpy personality" is his usual. The patient felt more postop pain 05/04 due to increased activity. This could be why his blood pressure is up. Plan: Blood pressures been consistently in the 140s today. We will switch over to oral medication in the form of Lopressor 50 twice daily and losartan 50 daily in view of the fact that he is on clonidine, Lopressor, hydralazine as needed (3) Hyperglycemia Assessment/Plan: May 05 he was 163, 152, 138, then I added sliding scale insulin. 05/06 he was 164, 144, 153 With today's n.p.o. status he has been 97 and 110. Plan: Continue sliding scale insulin. In the outpatient setting he may need metformin. Glycosylated hemoglobin here was 5.9%.
[2020-05-07] MEDS: METOPROLOL TARTRATE 25 MG TABLET PO SCH ×2 (13:47→21:03)
[2020-05-07] MEDS: LOSARTAN 50 MG TABLET PO SCH (13:47)
--- NOTE | 2020-05-07 20:07 | PROVIDER PROGRESS NOTE ---
Subjective - Prog Note Date Prog Note Date: 05/07/20 Prog Note Time: 16:00 - Subjective Pt reports feeling: Improved Subjective: Roly reports feeling much better. Abdominal pain is limited to the incision and is mild. He has had bowel movements and tolerated a diet today without difficulty. Much better spirits Current Medications - Current Medications Current Medications: Active Medications Generic Name Dose Route Start Last Admin Trade Name Freq PRN Reason Stop Dose Admin Acetaminophen 500 mg 05/05/20 10:38 05/07/20 02:02 Tylenol PO 500 mg Q4HR PRN Administration Pain or Fever > 38C (100.4F) Albuterol 2.5 mg 05/02/20 18:36 INH Q4HR PRN Wheezing Diazepam 5 mg 05/04/20 10:46 Valium Inj IVP Q30M PRN CIWA > 8 Protocol Heparin Sodium (Beef Lung) 30 - 50 unit 05/02/20 23:21 IVP PRN PRN Central Line Protocol (<24 hr) Heparin Sodium (Porcine) 5,000 unit 05/02/20 21:00 05/07/20 08:20 SUBQ 5,000 unit BID [facility] Administration Hydralazine HCl 10 mg 05/04/20 17:25 05/05/20 19:45 Apresoline Inj IVP 10 mg Q6H PRN Administration Hypertensive Emergency Hydromorphone HCl 1 mg 05/07/20 09:13 05/07/20 18:52 Dilaudid Inj Carp IVP 1 mg Q2H PRN Administration PAIN Piperacillin Sod/Tazobactam 100 mls @ 25 mls/hr 05/03/20 03:00 05/07/20 19:40 Sod 3.375 gm/ Sodium Chloride IV Infused Q8H [facility] Infusion Fluconazole 100 mls @ 100 mls/hr 05/04/20 09:00 05/07/20 13:28 Diflucan 200 Mg/100 Ml IV Infused DAILY [facility] Infusion Per Protocol Sodium Chloride 500 mls @ 0 mls/hr 05/05/20 11:22 05/07/20 16:58 Normal Saline 0.9% IV 0 mls/hr Q24H PRN Infusion TKO RATE TKO Sodium Chloride 1,000 mls @ 100 mls/hr 05/06/20 21:28 05/07/20 16:57 Normal Saline 0.9% IV 0 mls/hr .Q10H [facility] Infusion Insulin Human Regular 1 - 9 unit 05/05/20 21:00 05/07/20 16:58 Humulin R SUBQ Not Given Q6HR [facility] Protocol Ipratropium [place] 0.5 mg 05/02/20 18:36 Atrovent INH Q6HR PRN Wheezing Losartan Potassium 50 mg 05/07/20 13:00 05/07/20 13:47 Cozaar PO 50 mg DAILY [facility] Administration Metoclopramide HCl 10 mg 05/03/20 00:00 05/07/20 19:30 Reglan Inj IVP 10 mg Q6HR [facility] Administration Metoprolol Tartrate 5 mg 05/05/20 14:55 05/05/20 16:12 Lopressor Inj IVP 5 mg Q6H PRN Administration Hypertensive Emergency Metoprolol Tartrate 25 mg 05/07/20 13:00 05/07/20 13:47 Lopressor PO 25 mg BID [facility] Administration Pantoprazole Sodium 40 mg 05/03/20 21:00 05/07/20 08:20 Protonix IVP 40 mg BID [facility] Administration Polyethylene Glycol 17 gm 05/02/20 21:00 05/07/20 10:38 Miralax PO Not Given BID [facility] Sodium Chloride 10 ml 05/03/20 01:00 05/07/20 16:58 Normal Saline Flush 0.9% IVP Not Given 0100,0900,1700 [facility] Sodium Chloride 10 ml 05/02/20 18:36 05/07/20 08:20 Normal Saline Flush 0.9% IVP 10 ml PRN PRN Administration NEEDED PER PROVIDER ORDERS Sodium Chloride 20 ml 05/02/20 23:21 05/07/20 05:49 Normal Saline Flush 0.9% IVP 20 ml PRN PRN Administration After Blood Draw Tamsulosin HCl 0.4 mg 05/05/20 13:00 05/07/20 08:20 Flomax PO 0.4 mg DAILY [facility] Administration No Known Home Medications 05/03/20 Objective - Vital Signs/Intake & Output Reviewed Vital Signs: Yes Vital Signs: Vital Signs x48h Temp Pulse Resp BP BP BP Pulse Ox 05/07/20 16:48 36.9 C 86 16 129/82 H 97 05/07/20 13:47 154/83 H 05/07/20 13:00 36.6 C 94 14 154/83 H 92 Intake & Output: Intake & Output 05/04/20 05/05/20 05/06/20 05/07/20 23:59 23:59 23:59 23:59 Intake Total 6084.250 4339.0 4979 3175.333 Output Total 6255 4175 4150 2890 Balance -170.750 164.0 829 285.333 - Objective General Appearance: positive: No acute distress Eyes Bilateral: positive: Normal inspection Abdomen: positive: Nml bowel sounds, No distention, Other (Wound is clean and with a healthy bed of granulation. It measures 13 x 3.5 x 2 cm. No foul odor and no purulence. The vac is changed at the bedside and replaced) Neurologic/Psychiatric: positive: Oriented x3 - Lab Results Fish Bones: 05/06/20 05:20 05/06/20 05:20 Other Labs: Lab Results x24hrs 05/07/20 05/07/20 05/07/20 Range/Units 11:50 06:15 05:22 POC Whole Bld Glucose 91 110 H (70 - 100) mg/dL Calcium 8.5 (8.5-10.3) mg/dL Phosphorus 4.4 (2.5-4.6) mg/dL Magnesium 2.0 (1.7-2.8) mg/dL 05/06/20 Range/Units 23:37 POC Whole Bld Glucose 97 (70 - 100) mg/dL Calcium (8.5-10.3) mg/dL Phosphorus (2.5-4.6) mg/dL Magnesium (1.7-2.8) mg/dL ABX Reporting Has patient been on IV antibiotics over the past 48 hours?: Yes Assessment/Plan - Problem List (1) Perforated duodenal ulcer Impression: Much improved. Sepsis has resolved. Gastrograffin study showed no leak. Both HOMA drains have been removed. Feeding tube removed from the gastrostomy tube and the tube clamped. OK to advance diet. Plan for Vac dressing change on Monday. OK to DC from surgical perspective. Gastrostomy tube to remain in place for 6 weeks
[2020-05-08] MEDS: SODIUM CHLORIDE FLUSH 0.9% 10 ML SYRINGE IVP SCH (02:38)
[2020-05-08] MEDS: HYDROmorphone 1 MG/ML CARPUJECT IVP PRN ×3 (02:38→08:27)
[2020-05-08] MEDS: PIPERACILLIN/TAZOBACTAM 3.375 GM in SODIUM CHLORIDE 0.9% MINIBAG 100 ML IV SCH (02:48)
[2020-05-08] MEDS: METOCLOPRAMIDE 10 MG/2 ML VIAL IVP SCH (05:33)
[2020-05-08] MEDS: SODIUM CHLORIDE FLUSH 0.9% 10 ML SYRINGE IVP PRN (05:34)
[2020-05-08 08:01] LABS: BASOPHILS % (AUTO) 0.6 %; EOSINOPHILS % (AUTO) 3.9 %; HGB - HEMOGLOBIN 12.5 g/dL (14.0-18.0); LYMPHOCYTES % (AUTO) 14.3 %; MEAN CORPUSCULAR HEMOGLOBIN 29.8 pg (27.0-31.0); MEAN CORPUSCULAR HGB CONC 33.2 g/dL (32.0-36.0); MEAN CORPUSCULAR VOLUME 89.5 fL (80.0-94.0); MEAN PLATELET VOLUME 9.5 fL (7.4-11.4); MONOCYTES % (AUTO) 9.1 %; NEUTROPHILS % (AUTO) 65.5 %; PLT - PLATELET COUNT 235 10^3/uL (130-450); RED CELL DISTRIBUTION WIDTH 14.6 % (12.0-15.0); WHITE BLOOD COUNT 12.8 x10^3/uL (4.8-10.8)
[2020-05-08 08:03] LABS: ABNORMAL LYMPHS % (MANUAL) 0 %
[2020-05-08 08:10] LABS: CALCIUM 8.6 mg/dL (8.5-10.3); CREATININE 0.8 mg/dL (0.6-1.2); MAGNESIUM 2.1 mg/dL (1.7-2.8); PHOSPHORUS 3.4 mg/dL (2.5-4.6)
--- NOTE | 2020-05-08 08:19 | Discharge Plan ---
Discharge Plan Problem Reviewed?: Yes Disposition: Home Health Service Condition: Stable Prescriptions: Losartan [Cozaar] 50 mg PO DAILY #30 tablet Tamsulosin [Flomax] 0.4 mg PO DAILY #30 capsule Metoprolol Tartrate [Lopressor] 25 mg PO BID #60 tablet Diet: Regular Activity Restrictions: Activity as Tolerated Shower Restrictions: Yes (keep wound clean and dry. can ) Driving Restrictions: No Instruction Topics: Tamsulosin capsules, Gastric Ulcer, Hypertension Control, High Blood Pressure, Incision Care Abdomen Health Concerns: You presented to our emergency room with no previous medical history stating that you were basically a healthy raegan, and did not even have a doctor. What you presented with with abdominal pain and we found you to have a perforated ulcer of the duodenum. The duodenum is a very specific part of your stomach as it empties into your small bowel. The hole in your duodenum had caused quite a bit of stomach contents to fall into your abdomen. You had peritonitis, air in your abdomen, and had become septic from it. Sepsis means you have a very serious infection in your body. Dr. Omar Hernandezs took you to the operating room and did surgery to washout the abdominal contents that it spilled into your cavity, repaired the ulcer, and placed feeding tubes and drainage tubes to let your hole close up and heal.After surgery, you were having problems urinating. Unfortunately in a man your age, a large prostate is very common. The prostate does not allow you to empty your bladder very well and you have to constantly urinate or feel the urge to urinate. A Rubi catheter was required intermittently. Plan of Treatment: 1. A wound vacuum to allow your wound to heal without drainage has been placed. You will need to return to see the wound clinic on May 11. If the wound clinic is unable to take care of the wound, or the vacuum, you will be seeing Dr. Gris Obrien instead. 2. We are discharging you with instructions, under separate paperwork, on how to take care of the wound. 3. You have been started on 2 new blood pressure medicines. While you were here, we diagnosed you with high blood pressure. You did not even know you had it. It was very high and we needed to give you 3 medicines intravenously to bring it down. Now that you are going home, you will be taking pills. One is losartan, 1 is Lopressor. 4. Please establish yourself with a primary care provider in [place] or [place]. They will need to see you in follow-up for your blood pressure in the next 2 to 3 weeks. 5. Because of your prostate blocking your ability to expel urine from your bladder, you are being sent home on Flomax. Flomax is a light muscle relaxant that relaxes the floor of your bladder and allows you to release urine more easily around the obstructing prostate. 6. We are not sending you home with antibiotics. You have completed all the antibiotics you need while you were in the hospital. 7. You can eat a regular diet. Aim for a low-fat diet, no fried foods, avoid processed foods such as potato chips/frozen meals/soup from a can/ham. Care Goals: 1. To have the wound healed without infection and heal completely 2. Take a slow walk every day to help with wound healing, and allow your bowels to start working more normally 3. To return to work. Dr. Obrien will let you know when she is ready to release you to work. Assessment: Patient understands care goals and says he will follow through Follow-Up Care: [facility] [place] [facility] - Wound/Ostomy No Smoking: If you smoke, Please STOP! Call for help. Follow-up with: Alicia Salgado MD [Provider Admit Priv/Credential] -
[2020-05-08 08:25] VITALS: BP 120/89
[2020-05-08] MEDS: LOSARTAN 50 MG TABLET PO SCH (08:25)
[2020-05-08] MEDS: METOPROLOL TARTRATE 25 MG TABLET PO SCH (08:25)
[2020-05-08] MEDS: PANTOPRAZOLE 40 MG VIAL IVP SCH (08:27)
[2020-05-08] MEDS: HEPARIN 5,000 UNIT/ML VIAL SUBQ SCH (08:28)
[2020-05-08 08:31] LABS: BAND NEUTROPHILS % (MANUAL) 1 %; DIFFERENTIAL COMMENT MANUAL DIFFERENTIAL; EOSINOPHILS # (MANUAL) 0.5 10^3/uL (0-0.7); LYMPHOCYTES # (MANUAL) 2.3 10^3/uL (1.5-3.5); LYMPHOCYTES % (MANUAL) 18 %; METAMYELOCYTES % (MANUAL) 1 %; MONOCYTES # (MANUAL) 0.9 10^3/uL (0.0-1.0); PLATELET ESTIMATE, MANUAL NORMAL (130-450,000) (NORMAL); PLATELET MORPHOLOGY NORMAL APPEARANCE (NORMAL); RBC MORPHOLOGY (MULTIPLE) NORMAL APPEARANCE (NORMAL)
[2020-05-08] MEDS: FLUCONAZOLE 200 MG/100 ML 100 ML IV SCH (08:35)
[2020-05-08] MEDS: polyethylene glycoL 3350 17 GM PACKET PO SCH (08:40)
[2020-05-08] MEDS: TAMSULOSIN 0.4 MG CAPSULE PO SCH (10:48)
--- NOTE | 2020-05-08 11:35 | DISCHARGE SUMMARY ---
"Discharge Summary Admit Date: 05/02/20 Discharge Date: 05/08/20 Discharging Provider: Isatu Cantu MD Primary Care Provider: Patient doesn't have one yet Code Status: Attempt Resuscitation Condition at Discharge: Stable Discharge Disposition: [facility] - DIAGNOSES Discharge Diagnoses with Status of Each Condition: 1. Severe sepsis 2. Perforated duodenal/gastric ulcer, resolved, present on admission 3. Hypertension, new diagnosis, present on admission 4. Isolated hyperglycemia with an A1c of 5.9%. New diagnosis, present on admission 5. Benign prostatic hypertrophy with lower urinary tract symptoms of retention 6. Tachycardia 7. Respiratory failure with hypoxia 8. Acute kidney injury - HPI History of Present Illness: This is a pleasant 59-year-old male with no significant past medical history who presents today complaining of worsening abdominal pain over the past few days which became quite severe at 2 AM this morning. He states his last meal was Monday evening when he had some pizza. He states since then he has had poor appetite with vague abdominal pain. He reports going to sleep last night feeling relatively okay but then he woke up at 2 AM with severe abdominal pain. He had associated nausea and vomiting that was nonbloody. He states he does take occasional NSAIDs for chronic back pain. He reports no fevers, chills. He denies any chest pain, dyspnea. Reports no recent sick contacts. He denies any alcohol use. In the emergency department, he was found to have pneumoperitoneum on CT with concerns for perforated duoedenal ulcer. General surgery was consu lted he went to the OR for an expiratory laparotomy. He was found to have a perforated duodenal ulcer. 2 HOMA drains were placed as well as a gastrostomy tube with a feeding jejunostomy. He was transferred to intensive care unit postoperatively and medicine was consulted for medical management. The patient reports that his pain is currently well controlled. He still has some vague abdominal pain but this has improved since last night. He reports no chest pain, dyspnea. He denies any current fevers, chills, weakness, dizziness, lightheadedness. He feels pretty well overall considering the circumstances. He is currently not passing gas. He reports last bowel movement was over 24 hours ago. Past Medical History completely negative. Denies HTN, DM, HPL, and hasn't seen a PCP in years. - CONSULTS | PROCEDURES Procedures: 1. Exploratory laparotomy with abdominal washout, repair of pyloric ulcer, biop sy of ulcer, Heineke-Mikulicz pyloroplasty, gastrostomy with jejunostomy extension, open umbilical hernia repair, wound VAC placement, wide drainage, lysis of adhesions 2. Abdominal ultrasound limited study with contracted gallbladder and irregular, thickened wall. Mild ascites. No additional signs of cholecystitis. Increased liver echogenicity. Commonly attributed to fatty liver. 3. Abdomen pelvis CT with free air under the diaphragms. Moderate ascites. Left ureteral stone unblocked. Duodenum was thickened, irregular, hyperenhancing. The free air was adjacent to the duodenum. Moderate free air is seen elsewhere, involving the upper abdomen. Moderate thickening of the small bowel. No dilated bowel loops. 4. Chest/thorax CT angiogram done for tachycardia. Small bilateral pleural effusions. Compressive atelectasis at the bases. Moderate emphysematous changes. Bleb at the right apex. Isolated 4 mm pulmonary nodule in the right middle lobe. Right IJ in place. No PEs. 5. Upper GI with Gastrografin over a series of plain films. No plain radiographic evidence of leak. Since there was no high clinical suspicion for leak, CT was not done. - HOSPITAL COURSE Hospital Course: He was placed in the intensive care unit, intubated. Kept on empiric IV antibiotic therapies for patient who had a bowel perforation. Respiratory fail ure with hypoxia gradually improved. Acute kidney injury improved. He was able to be extubated. White cell count started at 21,000 and had gone down to 9.5 thousand. On the day of discharge he was 12.8. Acute kidney injury with a creatinine of 1.8 on admission was 0.8 by the time of discharge. This gentleman did very well. He was started on clear liquids, advance, then eating a full diet. Drains were full. He will be having the PEJ tube for at least 6 more weeks and surgery will remove at that time. The main complication during his stay was where to put him at discharge. He and his made several 180s. Sometimes he was going home to [place], sometimes he is going to stay here in [place]. The final decision was for him to stay in town this weekend and be seen by [facility] or general surgery on May 11. At that time the wound VAC would be reviewed. He would then go to [place] where he would see and establish himself with a new primary care provider. A home health agency within follow him for the wound there. Prior to admission he had a negative past medical history and considers himself healthy. During his stay he was identified as having high blood pressure, and hyperglycemia. However glycosylated hemoglobin was 5.9%. Because of the hyp ertension he was sent home on metoprolol as well as losartan. The other problem he developed was urinary retention after Rubi insertion for a critically ill patient. The Rubi was removed, had urinary retention again, and Rubi replaced. He has been started on Flomax. For pain he will be sent home on oxycodone as needed. He is warned that it can be constipating so to make sure he has pearly water and fiber while on oxycodone. I even recommended a stool softener such as Colace once a day. He is discharged in stable condition. On the day of discharge temperature was 36.4. Pulse 78. Blood pressure 120/89. Respirations 18. He is 96% on room air. He is 5 foot 11 inches tall and weighs 119 kg. An alert oriented pleasant white male who could not wait to get out of here. Neck was supple. Without adenopathy. Lungs have diminished breath sounds at the bases with an occasional crackle at the base that cleared with a deep cough. PMI was normally placed with a regular rate and rhythm. The abdomen was soft, nontender, PEJ tube in place. Wound is closed, healing, granulating. He was ambulating without assistance. Legs had no edema. Greater than 30 minutes was spent coordinating discharge. I explained to him that he needs blood pressure follow-up. To see if any of his blood pressure medicines can be stopped or do they need to be dose adjusted. He will be followed up by Dr. Gris Obrien in the office or the [facility] on May 11. He will then establish himself with a provider, tentatively May 15. He is not released to go back to work yet. Dr. Obrien will release him and write a note with her visit. - ALLERGIES Allergies/Adverse Reactions: Allergies Allergy/AdvReac Type Severity Reaction Status Date / Time No Known Drug Allergies Allergy Verified 05/02/20 05:47 - MEDICATIONS Home Medications: Ambulatory Orders Medication Instructions Recorded Confirmed Losartan [Cozaar] 50 mg PO DAILY #30 tablet 05/08/20 Metoprolol Tartrate [Lopressor] 25 mg PO BID #60 tablet 05/08/20 Tamsulosin [Flomax] 0.4 mg PO DAILY #30 capsule 05/08/20 oxyCODONE [Roxicodone] 5 mg PO Q4-6H #30 tablet 05/08/20 - LABS Result Diagrams: 05/08/20 07:40 05/08/20 07:40"
== END 2020-05-08 12:00 | disposition home health service (06) | DRG 853 ==
LOC: ED 05:33 → SDS 09:30 → ICU 16:41 → SDS 18:35 → ICU 18:36 → MS2 05-06 14:24
PROVIDERS: ADMIT Surgery; ATTEND Specialist
PROC: 0DQ70ZZ Repair Stomach, Pylorus, Open Approach (ICD-10-PCS; 2020-05-02)
PROC: 0WQF0ZZ Repair Abdominal Wall, Open Approach (ICD-10-PCS; 2020-05-02)
PROC: 0DB60ZX Excision of Stomach, Open Approach, Diagnostic (ICD-10-PCS; 2020-05-02)
PROC: 0DH60UZ Insertion of Feeding Device into Stomach, Open Approach (ICD-10-PCS; 2020-05-02)
PROC: 0DHA0UZ Insertion of Feeding Device into Jejunum, Open Approach (ICD-10-PCS; 2020-05-02)
PROC: 02HV33Z Insertion of Infusion Device into Superior Vena Cava, Percutaneous Approach (ICD-10-PCS; 2020-05-02)
PROC: 3E0T3BZ Introduction of Anesthetic Agent into Peripheral Nerves and Plexi, Percutaneous Approach (ICD-10-PCS; 2020-05-02)
PROC: 0DQ90ZZ Repair Duodenum, Open Approach (ICD-10-PCS; principal; 2020-05-02 13:30)
DX: A41.9 Sepsis, unspecified organism (principal); K26.5 Chronic or unspecified duodenal ulcer with perforation; K25.5 Chronic or unspecified gastric ulcer with perforation; J96.01 Acute respiratory failure with hypoxia; K65.0 Generalized (acute) peritonitis; K65.3 Choleperitonitis; N17.9 Acute kidney failure, unspecified; J98.11 Atelectasis; R65.20 Severe sepsis without septic shock; R73.9 Hyperglycemia, unspecified; R33.8 Other retention of urine; R00.0 Tachycardia, unspecified; I10 Essential (primary) hypertension; N40.1 Benign prostatic hyperplasia with lower urinary tract symptoms; G89.29 Other chronic pain; M54.9 Dorsalgia, unspecified; E66.9 Obesity, unspecified; E87.6 Hypokalemia; Z68.36 Body mass index [BMI] 36.0-36.9, adult; Z79.1 Long term (current) use of non-steroidal anti-inflammatories (NSAID); Z87.442 Personal history of urinary calculi; Z87.891 Personal history of nicotine dependence
CPT/HCPCS: 36415; 71045; 71275; 74018; 74177; 74250; 76705; 80048; 80053; 81001; 81599; 82310; 82330; 82803; 83036; 83690; 83735; 84100; 84134; 84484; 85025; 87150; 93005; 96361; 96365; 96367; 96375; 96376; 99284; 99285; A9270; J0131; J0330; J1170; J1200; J1815; J2765; J3370; J7120; Q9963; Q9967; 81003; 87086